=== PATIENT | male | born 1960 | race Caucasian/White ===

== ENCOUNTER 2017-09-02 11:24 | Outpatient (RCR) | payer MEDICARE, SELFPAY ==
[2017-09-02 12:02] VITALS: BP 122/74; PULSE 79; RESP 20; TEMP 36.1; BMI 74.9
--- NOTE | 2017-09-02 13:42 | PCM.WC.HP ---
(1) Chronic ulcer of left foot with necrosis of muscle Status: Chronic Code(s): L97.523 - Non-pressure chronic ulcer of other part of left foot with necrosis of muscle (2) Chronic kidney disease, stage III (moderate) Status: Chronic (3) Type 2 diabetes mellitus with diabetic polyneuropathy Status: Chronic Qualifiers: Code(s): E11.42 - Type 2 diabetes mellitus with diabetic polyneuropathy (4) Other specified peripheral vascular diseases Status: Chronic Code(s): I73.89 - Other specified peripheral vascular diseases (5) Localized edema Status: Chronic Code(s): R60.0 - Localized edema (6) MRSA (methicillin resistant staph aureus) culture positive Status: Resolved Code(s): Z22.322 - Carrier or suspected carrier of Methicillin resistant Staphylococcus aureus (7) Malnutrition Status: Chronic Code(s): E46 - Unspecified protein-calorie malnutrition (8) Delayed wound healing Status: Chronic Code(s): T14.8 - Other injury of unspecified body region History of Present Illness Date of Service: 09/07/17 Chief Complaint: Left foot wound History of Wound: This 56-year-old male with with a complicated medical history returns to clinic today with a new left foot large wound. He relates he sustained an injury and infection starting from August 10, 2017 in which she was admitted to an outside hospital for antibiotics, surgical debridement by a employee relations representative on staff, admission, and continued follow-up care. He was diagnosed previously with MRSA. He now has a very large unhealthy looking wound that continues to drain. He denies current fever, chill, nausea, loss of appetite. Past Medical History Past Medical History: Chronic Problems (Last Updated 08/25/17 @ 14:35 by Kaylin Ellis) Chronic ulcer of left foot with necrosis of muscle (Chronic) HTN (hypertension) (Chronic) Ulcer of right lower extremity with fat layer exposed (Chronic) Benign hypertension (Chronic) Chronic kidney disease, stage III (moderate) (Chronic) Type 2 diabetes mellitus (Chronic) Gastroesophageal reflux disease (Chronic) Obesity (Chronic) History of CHF (congestive heart failure) (Chronic) Obstructive sleep apnea syndrome (Chronic) Chronic ulcer of right leg with necrosis of muscle (Chronic) Type 2 diabetes mellitus with diabetic polyneuropathy (Chronic) Other specified peripheral vascular diseases (Chronic) Localized edema (Chronic) Malnutrition (Chronic) Delayed wound healing (Chronic) Surgical History: appendectomy Allergies/Adverse Reactions: Allergies No Known Allergies Allergy (Verified 06/22/13 08:32) Home Medications: Ambulatory Orders Medication Instructions Recorded Aspirin [Ecotrin] 81 mg PO DAILY 06/22/13 Atorvastatin Calcium [Lipitor] 20 mg PO QHS 06/22/13 Insulin NPH Human Isophane 70 unit SQ BID 12/31/16 [Novolin N] Insulin Regular, Human [Novolin R] 24 unit SC DINNER 12/31/16 Metoprolol Tartrate [Lopressor 50 mg PO BID 12/31/16 (Beta Robel)] metformin 500 mg tablet 500 mg PO DAILY #90 tab 07/02/17 insulin U-100 regular human 100 22 unit SC QAM ml 08/21/17 unit/mL injection solution insulin detemir (U-100) 100 20 unit SC QPM 08/21/17 unit/mL subcutaneous solution insulin lispro (U-100) 100 unit/mL 5 unit SC BID ml 08/21/17 subcutaneous solution insulin lispro (U-100) 100 unit/mL See Label Instructions SC .COMPLEX 08/21/17 subcutaneous solution blood sugar diagnostic strips See Dose Instructions .ROUTE 08/25/17 .MEDSUPPLY #20 ea esomeprazole magnesium 40 mg 40 mg PO QDAY 08/25/17 capsule,delayed release gabapentin 300 mg capsule 300 mg PO TID #180 cap 08/25/17 lancets 28 gauge See Dose Instructions .ROUTE 08/25/17 .MEDSUPPLY #50 ea oxycodone-acetaminophen 5 mg-325 1 tab PO Q8H PRN #90 tab 08/25/17 mg tablet Lives: With Family Smoking Status: Former smoker Tobacco Use: Non-smoker Review of Systems Constitutional: Reports: Weakness. Denies: Chills, Fever Cardiovascular: Denies: Chest Pain, Claudication Respiratory: Denies: Shortness of Breath Gastrointestinal: Denies: Nausea, Vomiting Musculoskeletal: Denies: Foot Pain, Joint Tenderness, Leg Pain Skin: Reports: Skin Changes, Wounds Neurological: Reports: Numbness - Physical Exam Vital Signs Temp Pulse Resp BP 96.9 F L 79 20 H 122/74 H 09/02/17 12:02 09/02/17 12:02 09/02/17 12:02 09/02/17 12:02 General: Alert, Oriented x3, Cooperative HEENT: Atraumatic Extremities: No cyanosis, Capillary Refill Less than 3 Seconds - All digits left foot, No Calf Tenderness - Negative Castillo and Brooks sign bilateral lower extremities, Diminished Peripheral Pulses, Edema - Mild left lower extremity Skin: Ulcer/ Wound - The large wound site encompasses the plantar medial arch extending onto the lateral dorsal foot with no purulence, streaking, erythema, johan necrosis, odor, or maceration. There is devitalized liquefied tissue including the subcutaneous and fascia layers. There is exposed muscle and plantar fascial band. There is additional probing deeper into the midfoot noted but not directly to bone, - - Skin is atrophic and hairless bilateral lower extremities Wound Measurements and Assessment WC - Nurse 1 - General Ulcer Measurement Start: 09/02/17 11:32 Freq: Status: Active Protocol: Activity Type Activity Date Activity User E-Sign Co-Sign Detail Recorded Client Recorded Date Recorded By Document 09/02/17 12:02 DL [id number] 09/02/17 12:30 DL 09/02/17 12:02 Wound Center Nurse 1 [Ulcer Assessment] #6 L Med Foot -Current Size (cm) - Length 1.8 -Current Size (cm) - Width 3 -Current Size (cm) - Depth 0.2 -Total Square Cm 5.4 -Photo Taken Yes -Exudate Amt Small (1-33%) -Exudate Type Serosanguineous -Wound Margin Distinct, Outline Attached -Granulation Amt None Present (0 %) -Necrosis Amt Large (67-100%) -Necrotic Tissue Type Adherent Slough -Structure Exposed N/A -Texture (Jacquelyn-wound Skin Appearance) Localized Edema -Moisture (Jacquelyn-wound Skin Appearance Dry/Scaly ) -Color (Jacquelyn-wound Skin Appearance) Erythema -Temperature (Jacquelyn-wound Skin No Abnormality Appearance) (Pt Warm) -Tenderness on Palpation (Jacquelyn-wound No Skin Appearance) -Ulcer Cleansing Wound Cleanser -Foul Odor after Cleansing No -Anesthetic Used 4% Lidocaine Solution #5 L Foot -Current Size (cm) - Length 4 -Current Size (cm) - Width 10.4 -Current Size (cm) - Depth 1 -Total Square Cm 41.6 -Photo Taken Yes -Exudate Amt Medium (34-66%) -Exudate Type Serosanguineous -Wound Margin Distinct, Outline Attached -Granulation Amt Small (1-33%) -Granulation Quality Hughson -Necrosis Amt Large (67-100%) -Necrotic Tissue Type Eschar -Structure Exposed N/A -Texture (Jacquelyn-wound Skin Appearance) Localized Edema -Moisture (Jacquelyn-wound Skin Appearance No Abnormality ) -Color (Jacquelyn-wound Skin Appearance) Erythema Rubor -Temperature (Jacquelyn-wound Skin No Abnormality Appearance) (Pt Warm) -Tenderness on Palpation (Jacquelyn-wound No Skin Appearance) -Ulcer Cleansing Wound Cleanser -Foul Odor after Cleansing No -Anesthetic Used 4% Lidocaine Solution [Edema Assessment] -Left Calf (cm) 34 -Left Ankle (cm) 20.3 WC - Nurse 2 - General Ulcer CM Notes Start: 09/02/17 11:32 Freq: Status: Active Protocol: Activity Type Activity Date Activity User E-Sign Co-Sign Detail Recorded Client Recorded Date Recorded By Document 09/02/17 13:07 [id number] 09/02/17 13:08 09/02/17 13:07 Wound Center Nurse 2 [Procedure/Treatment] #6 L [facility] Foot -Time 13:07 -Correct Patient Yes -Correct Side, Site, Position Yes -Correct Procedure Yes -Procedure Performed Yes -Type of Procedure Debridement -Clinical Debridement Muscle -Post Debridement Size (cm) - Length 1.8 -Post Debridement Size (cm) - Width 3.1 -Post Debridement Size (cm) - Depth 0.2 -Total Square Cm 5.58 -Wound/Ulcer Outcome Not Healed -Ulcer Cleansing Rinsed/ Irrigated with Saline -Foul Odor after Cleansing No -Bioengineered Tissue No -Bleeding Controlled with Pressure -Treatment Response Procedure Tolerated Well #5 L Foot -Time 13:07 -Correct Patient Yes -Correct Side, Site, Position Yes -Correct Procedure Yes -Procedure Performed Yes -Type of Procedure Debridement -Clinical Debridement Muscle -Post Debridement Size (cm) - Length 4.2 -Post Debridement Size (cm) - Width 10.5 -Post Debridement Size (cm) - Depth 1.0 -Total Square Cm 44.10 -Wound/Ulcer Outcome Not Healed -Ulcer Cleansing Rinsed/ Irrigated with Saline -Foul Odor after Cleansing No -Bioengineered Tissue No -Bleeding Controlled with Pressure -Treatment Response Procedure Tolerated Well [See Physician Procedure note for Specifics] Pain Scale: 0-10 Numeric [Pain] -Is Patient Pain Free? Yes Musculoskeletal: No Tenderness to Palpation of Joints or Extremities, Muscle Wasting, Tenderness - No pain with manipulation left lower extremity, - - Active range of motion digits ?5 left lower extremity and ankle in all directions, left Lymphatic: - - Nonpalpable popliteal lymph nodes left lower extremity Neurological: - - Lack of epicritic sensation light touch and 10 g complaints monofilament to left lower extremity consistent with neuropathy Debridement Note Post-Debridement Measurements/Treatment WC - Nurse 2 - General Ulcer CM Notes Start: 09/02/17 11:32 Freq: Status: Active Protocol: Activity Type Activity Date Activity User E-Sign Co-Sign Detail Recorded Client Recorded Date Recorded By Document 09/02/17 13:07 [id number] 09/02/17 13:08 09/02/17 13:07 Wound Center Nurse 2 #6 L Med Foot -Time 13:07 -Correct Patient Yes -Correct Side, Site, Position Yes -Correct Procedure Yes -Procedure Performed Yes -Type of Procedure Debridement -Clinical Debridement Muscle -Post Debridement Size (cm) - Length 1.8 -Post Debridement Size (cm) - Width 3.1 -Post Debridement Size (cm) - Depth 0.2 -Total Square Cm 5.58 -Wound/Ulcer Outcome Not Healed -Ulcer Cleansing Rinsed/ Irrigated with Saline -Foul Odor after Cleansing No -Bioengineered Tissue No -Bleeding Controlled with Pressure -Treatment Response Procedure Tolerated Well #5 L Foot -Time 13:07 -Correct Patient Yes -Correct Side, Site, Position Yes -Correct Procedure Yes -Procedure Performed Yes -Type of Procedure Debridement -Clinical Debridement Muscle -Post Debridement Size (cm) - Length 4.2 -Post Debridement Size (cm) - Width 10.5 -Post Debridement Size (cm) - Depth 1.0 -Total Square Cm 44.10 -Wound/Ulcer Outcome Not Healed -Ulcer Cleansing Rinsed/ Irrigated with Saline -Foul Odor after Cleansing No -Bioengineered Tissue No -Bleeding Controlled with Pressure -Treatment Response Procedure Tolerated Well Pain Scale: 0-10 Numeric Is Patient Pain Free? Yes Wound debrided: plantat, lateral, dorsal foot Laterality: Left Wound Grade/Stage: grade 3 Type of Debridement: Excisional debridement Anesthesia Used: 5% Lidocaine Gel Depth: in the subcutaneous layer Percentage of wound debrided: 100 Instrument Used: #15 blade, Forceps Tissue Removed: fibrous, devitalized subcutaneous, biofilm, slough, fascia and muscle tissu Severity: Necrosis of Muscle Amount of bleeding with debridement: Mild Bleeding Controlled with: Pressure Patient tolerated procedure well Assessment/Plan Assessment: Left grade 3 foot ulcer with infection that is currently being medically treated; he also had previous surgical treatment at an outside facility. Peripheral vascular disease lower extremity. Diabetes with polyneuropathy. Leg edema. Malnutrition suspected Plan: I reviewed and discussed his case. He is previously known to me for ulcers contralateral limb. He presents today with a new condition on the left lower extremity. To continue on antibiotics as recommended by his. He understands additional debridements in the clinical setting and cervical setting are likely to continue to remove nonviable and unhealthy tissue to prevent further infection and to provoke timely wound healing. This was performed today as noted in the clinical panel. A vascular referral to Dr. Hurtado was provided again today. It is noted that he had a Doppler completed in the past and is previously known to Dr. Hurtado. I recommend updating his laboratory values including CBC, CMP, ESR, C-reactive protein, hemoglobin A1c; an order requisition was provided. I also recommend an updated foot x-ray for the left lower extremity in order was provided. We will reviewed these results at his follow-up. Recommend he applies hydrogel with Adaptic with over the the wound to help with further moisture waiting for a local bacteria. Advanced wound care products will be considered in the future once his condition stabilizes. To remain completely nonweightbearing with assistive devices such as a walker, crutches, or wheelchair. Compliance with the treatment plan was also discussed. He understands he is at risk for continued infection, limb loss, or sepsis/life loss. He is advised to follow-up to clinic in 1 week or call sooner if he has any problems. He is doing well.
== END 2017-09-10 23:59 ==
LOC: WC 11:24
PROVIDERS: Family Provider Family Medicine; PCP Family Medicine; Visit Provider Podiatrist
DX: L97.523 Non-pressure chronic ulcer of other part of left foot with necrosis of muscle (principal); R60.0 Localized edema; L08.9 Local infection of the skin and subcutaneous tissue, unspecified; N18.3 Chronic kidney disease, stage 3 (moderate); E11.42 Type 2 diabetes mellitus with diabetic polyneuropathy; I73.89 Other specified peripheral vascular diseases; Z22.322 Carrier or suspected carrier of Methicillin resistant Staphylococcus aureus; E46 Unspecified protein-calorie malnutrition; G47.33 Obstructive sleep apnea (adult) (pediatric); E66.9 Obesity, unspecified; Z79.4 Long term (current) use of insulin; Z79.82 Long term (current) use of aspirin; Z87.891 Personal history of nicotine dependence; I12.9 Hypertensive chronic kidney disease with stage 1 through stage 4 chronic kidney disease, or unspecified chronic kidney disease
CPT/HCPCS: 11043; 11046; 99213; G0463

== ENCOUNTER → 2018-06-24 09:26 | Outpatient (CLI) | payer MEDICARE, SELFPAY ==
[2018-06-24 09:01] VITALS: BMI 32.9
[2018-06-24 12:46] LABS: AST(SGOT) 10 U/L (15-37); Alanine Aminotransfer ALT/SGPT 20 U/L (16-61); Albumin, Serum 3.7 g/dL (3.2-5.0); Alkaline Phosphatase 93 U/L (45-117); Anion Gap 13 (5-15); BUN 34 mg/dL (7-18); Calcium,Total 8.9 mg/dL (8.5-10.1); Chloride 103 mmol/L (98-107); Cholesterol 140 mg/dL (200); Creatinine, Serum 1.48 mg/dL (0.70-1.30); EST Glomerular Filtration Rate 52 mL/min (>60); Est Glom Filt Rate - Afr Amer 63 mL/min (>60); Globulin 3.7 g/dL (2.2-4.2); Glucose 181 mg/dL (74-106); High Density Lipoprotein 30 mg/dL; Potassium 3.6 mmol/L (3.5-5.1); Protein, Total 7.4 g/dL (6.4-8.2); Sodium Level 139 mmol/L (136-145); Triglycerides 219 mg/dL; Very Low Density Lipoprotein 44 mg/dL (5-40)
== END ==
PROVIDERS: Family Provider Family Medicine; PCP Family Medicine; Visit Provider Family Medicine
DX: Z89.512 Acquired absence of left leg below knee (principal); I25.2 Old myocardial infarction
CPT/HCPCS: 36415; 80053; 80061

== ENCOUNTER 2018-12-29 10:30 | Outpatient (RCR) | payer MEDICARE, SELFPAY ==
[2018-10-19 15:45] VITALS: BMI 32.9
[2018-12-22 14:47] VITALS: BP 147/71; PULSE 87; RESP 18; TEMP 36.7; BMI 32.9
--- NOTE | 2018-12-22 15:29 | PCM.WC.HP ---
(1) Chronic kidney disease, stage III (moderate) Status: Chronic Current Visit: Yes Code(s): N18.3 - Chronic kidney disease, stage 3 (moderate) (2) Other specified peripheral vascular diseases Status: Chronic Current Visit: Yes Code(s): I73.89 - Other specified peripheral vascular diseases (3) Type 2 diabetes mellitus with diabetic polyneuropathy Status: Chronic Current Visit: Yes Code(s): E11.42 - Type 2 diabetes mellitus with diabetic polyneuropathy (4) Ulcer of right foot with fat layer exposed Status: Chronic Current Visit: Yes Code(s): L97.512 - Non-pressure chronic ulcer of other part of right foot with fat layer exposed (5) Injury due to unintentional cut, puncture, perforation or hemorrhage during heart catheterization Status: Chronic Current Visit: Yes History of Present Illness Date of Service: 12/22/18 Chief Complaint: Left foot wound History of Wound: This 56-year-old male with with a complicated medical history returns to clinic today with a new right foot heel ulcer that occurred after he accidentally caught his foot with a screwdriver while he was working on a project at home. The onset is 11/13/2018. Since this time he has been applying a dry dressing and relates it has progressively darkened like a large scab. He denies active drainage. He has been keeping pressure off of it while resting. He does continue to wear shoe. 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 He denies current fever, chill, nausea, loss of appetite. He was referred from the [facility]. 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) History of myocardial infarction (Chronic) Chronic kidney disease, stage III (moderate) (Chronic) HTN (hypertension) (Chronic) Diabetes (Chronic) Ulcer of right lower extremity with fat layer exposed (Chronic) Benign hypertension (Chronic) Chronic kidney disease, stage III (moderate) (Chronic) Type 2 diabetes mellitus (Chronic) Gastroesophageal reflux disease (Chronic) Obesity (Chronic) History of CHF (congestive heart failure) (Chronic) Obstructive sleep apnea syndrome (Chronic) Chronic ulcer of right leg with necrosis of muscle (Chronic) Type 2 diabetes mellitus with diabetic polyneuropathy (Chronic) Other specified peripheral vascular diseases (Chronic) Localized edema (Chronic) Malnutrition (Chronic) Delayed wound healing (Chronic) Surgical History: appendectomy Allergies/Adverse Reactions: Allergies No Known Allergies Allergy (Verified 06/24/18 08:58) Home Medications: Ambulatory Orders Medication Instructions Recorded aspirin 81 mg tablet,delayed 81 mg PO DAILY #90 tab 06/08/18 release atorvastatin 40 mg tablet 40 mg PO QDAY #90 tab 06/08/18 insulin detemir (U-100) 100 60 unit SC QPM #6 vial 06/08/18 unit/mL subcutaneous solution metformin 500 mg tablet 1,000 mg PO BID #180 tab 06/08/18 esomeprazole magnesium 20 mg 20 mg PO DAILY #90 cap 07/12/18 capsule,delayed release insulin aspart U-100 100 unit/mL 10 unit SC TID #10 ml 09/27/18 subcutaneous solution lisinopril 20 mg tablet 20 mg PO DAILY #90 tab 10/19/18 oxycodone-acetaminophen 5 mg-325 1 tab PO Q8H PRN #60 tab 12/07/18 mg tablet blood sugar diagnostic strips See Rx Instructions .ROUTE 12/08/18 .COMPLEX #100 each clopidogrel 75 mg tablet See Rx Instructions .ROUTE 12/08/18 .COMPLEX #28 tablet gabapentin 300 mg capsule See Rx Instructions .ROUTE 12/08/18 .COMPLEX #84 capsule terazosin 2 mg capsule See Rx Instructions .ROUTE 12/08/18 .COMPLEX #56 capsule venlafaxine ER 75 mg See Rx Instructions .ROUTE 12/08/18 capsule,extended release 24 hr .COMPLEX #28 capsule furosemide 40 mg tablet 40 mg PO DAILY 12/09/18 Lives: - - home Smoking Status: Former smoker Review of Systems Constitutional: Denies: Chills, Fever, Weakness Cardiovascular: Denies: Orthopnea Respiratory: Denies: Shortness of Breath Gastrointestinal: Denies: Diarrhea, Nausea, Vomiting Musculoskeletal: Denies: Foot Pain, Joint Tenderness, Leg Pain Skin: Reports: Skin Changes, Wounds - Physical Exam Vital Signs Temp Pulse Resp BP 98.1 F 87 18 147/71 H 12/22/18 14:47 12/22/18 14:47 12/22/18 14:47 12/22/18 14:47 General: Alert, Oriented x3, Cooperative, No apparent distress HEENT: Atraumatic Extremities: No cyanosis, Capillary Refill Less than 3 Seconds, No Calf Tenderness - Negative Castillo and Brooks sign right, Diminished Peripheral Pulses, Edema - Mild right lower extremity, - - No bogginess or fluctuance on palpation and compartments remain soft to the right lower extremity Skin: Ulcer/ Wound - There is a fibers, granular, and eschar ulcer to the medial posterior right heel. There is no deep tissue exposed or deep probing. There is no erythema, streaking, odor, or acute signs of infection. Wound Measurements and Assessment WC - Nurse 1 - General Ulcer Measurement Start: 12/22/18 14:47 Freq: Status: Active Protocol: Activity Type Activity Date Activity User E-Sign Co-Sign Detail Recorded Client Recorded Date Recorded By Document 12/22/18 14:47 RB [email or web address] 12/22/18 14:59 RB 12/22/18 14:47 Wound Center Nurse 1 [Ulcer Assessment] 8. R foot anterior -Combined with other wound No -Current Size (cm) - Length 0.6 -Current Size (cm) - Width 0.6 -Current Size (cm) - Depth 0.1 -Total Square Cm 0.36 -Tunneling No -Undermining/Tunneling No -Circular Undermining No -Exudate Amt Small -Exudate Type Serosanguineous -Wound Margin Flat & Intact -Granulation Amt Large (67-100%) -Granulation Quality [place] -Slough/Fibrin Yes -Necrosis Amt Small (1-33%) -Necrotic Tissue Type Adherent Slough -Structure Exposed N/A -Texture (Jacquelyn-wound Skin Appearance) Assessed -Moisture (Jacquelyn-wound Skin Appearance Assessed ) -Color (Jacquelyn-wound Skin Appearance) Assessed -Temperature (Jacquelyn-wound Skin No Abnormality Appearance) (Pt Warm) -Tenderness on Palpation (Jacquelyn-wound No Skin Appearance) -Ulcer Cleansing Wound Cleanser -Foul Odor after Cleansing No -Anesthetic Used 5% Lidocaine Gel 7. R medial heel -Combined with other wound No -Current Size (cm) - Length 1.6 -Current Size (cm) - Width 2.3 -Current Size (cm) - Depth 0.1 -Total Square Cm 3.68 -Photo Taken Yes -Tunneling No -Undermining/Tunneling No -Circular Undermining No -Exudate Amt None Present -Wound Margin Flat & Intact -Granulation Amt None Present (0 %) -Slough/Fibrin Yes -Necrosis Amt Large (67-100%) -Necrotic Tissue Type Eschar -Structure Exposed N/A -Texture (Jacquelyn-wound Skin Appearance) Assessed,Callus -Moisture (Jacquelyn-wound Skin Appearance Assessed ) -Color (Jacquelyn-wound Skin Appearance) Assessed -Temperature (Jacquelyn-wound Skin No Abnormality Appearance) (Pt Warm) -Tenderness on Palpation (Jacquelyn-wound No Skin Appearance) -Ulcer Cleansing Rinsed/ Irrigated with Saline -Foul Odor after Cleansing No -Anesthetic Used 5% Lidocaine Gel [Edema Assessment] -Lower Limb Edema Present Yes -Right Calf (cm) 35.8 -Right Ankle (cm) 22 WC - Nurse 2 - General Ulcer CM Notes Start: 12/22/18 14:47 Freq: Status: Active Protocol: Activity Type Activity Date Activity User E-Sign Co-Sign Detail Recorded Client Recorded Date Recorded By Document 12/22/18 15:19 AN [id number] 12/22/18 15:26 AN 12/22/18 15:19 Wound Center Nurse 2 [Procedure/Treatment] 8. R foot anterior -Time 15:20 -Correct Patient Yes -Correct Side, Site, Position Yes -Correct Procedure Yes -Procedure Performed Yes -Type of Procedure Debridement -Clinical Debridement Subcutaneous -Post Debridement Size (cm) - Length 0.7 -Post Debridement Size (cm) - Width 0.7 -Post Debridement Size (cm) - Depth 0.1 -Total Square Cm 0.49 -Wound/Ulcer Outcome Not Healed -Bleeding Controlled with Pressure -Offloading Yes -Treatment Response Procedure Tolerated Well 7. R medial heel -Time 15:24 -Correct Patient Yes -Correct Side, Site, Position Yes -Correct Procedure Yes -Procedure Performed Yes -Type of Procedure Debridement -Clinical Debridement Subcutaneous -Post Debridement Size (cm) - Length 1.7 -Post Debridement Size (cm) - Width 2.4 -Post Debridement Size (cm) - Depth 0.1 -Total Square Cm 4.08 -Wound/Ulcer Outcome Not Healed -Ulcer Cleansing Rinsed/ Irrigated with Saline -Foul Odor after Cleansing No -Bioengineered Tissue No -Bleeding Controlled with Pressure -Offloading Yes -Treatment Response Procedure Tolerated Well [See Physician Procedure note for Specifics] Pain Scale: 0-10 Numeric [Pain] -Is Patient Pain Free? Yes Musculoskeletal: No Tenderness to Palpation of Joints or Extremities, Muscle Wasting Neurological: - - Lack of normal epicritic sensation light touch is consistent with neuropathy status Psych/Mental Status: Normal Affect, Appropriate Debridement Note Post-Debridement Measurements/Treatment WC - Nurse 2 - General Ulcer CM Notes Start: 12/22/18 14:47 Freq: Status: Active Protocol: Activity Type Activity Date Activity User E-Sign Co-Sign Detail Recorded Client Recorded Date Recorded By Document 12/22/18 15:19 AN [email or web address] 12/22/18 15:26 AN 12/22/18 15:19 Wound Center Nurse 2 8. R foot anterior -Time 15:20 -Correct Patient Yes -Correct Side, Site, Position Yes -Correct Procedure Yes -Procedure Performed Yes -Type of Procedure Debridement -Clinical Debridement Subcutaneous -Post Debridement Size (cm) - Length 0.7 -Post Debridement Size (cm) - Width 0.7 -Post Debridement Size (cm) - Depth 0.1 -Total Square Cm 0.49 -Wound/Ulcer Outcome Not Healed -Bleeding Controlled with Pressure -Offloading Yes -Treatment Response Procedure Tolerated Well 7. R medial heel -Time 15:24 -Correct Patient Yes -Correct Side, Site, Position Yes -Correct Procedure Yes -Procedure Performed Yes -Type of Procedure Debridement -Clinical Debridement Subcutaneous -Post Debridement Size (cm) - Length 1.7 -Post Debridement Size (cm) - Width 2.4 -Post Debridement Size (cm) - Depth 0.1 -Total Square Cm 4.08 -Wound/Ulcer Outcome Not Healed -Ulcer Cleansing Rinsed/ Irrigated with Saline -Foul Odor after Cleansing No -Bioengineered Tissue No -Bleeding Controlled with Pressure -Offloading Yes -Treatment Response Procedure Tolerated Well Pain Scale: 0-10 Numeric Is Patient Pain Free? Yes Wound debrided: medial heel Laterality: Right Wound Grade/Stage: grade 1 Type of Debridement: Excisional debridement Anesthesia Used: 5% Lidocaine Gel Depth: in the subcutaneous layer Percentage of wound debrided: 100 Instrument Used: #15 blade Tissue Removed: fibrous, devitalized subcutaneous, biofilm, slough Severity: Fat Layer Exposed Amount of bleeding with debridement: Mild Bleeding Controlled with: Pressure Patient tolerated procedure well - Additional Wound Wound debrided: dorsal foot Laterality: Right Wound Grade/Stage: grade 1 Type of Debridement: Excisional debridement Anesthesia Used: 5% Lidocaine Gel Depth: in the subcutaneous layer Percentage of wound debrided: 100 Instrument Used: #15 blade Tissue Removed: fibrous, devitalized subcutaneous, biofilm, slough Severity: Fat Layer Exposed Amount of bleeding with debridement: Mild Bleeding Controlled with: Pressure Patient tolerated procedure: Patient tolerated procedure well Assessment/Plan Active Problems (Last Reviewed 10/20/18 @ 08:06 by Reynaldo Lou DO) Type 2 diabetes mellitus with diabetic polyneuropathy (Chronic) Ulcer of right foot with fat layer exposed (Chronic) Injury due to unintentional cut, puncture, perforation or hemorrhage during heart catheterization (Chronic) Chronic kidney disease, stage III (moderate) (Chronic) Ulcer of right lower extremity with fat layer exposed (Chronic) Other specified peripheral vascular diseases (Chronic) Assessment: Right foot ulcer, dan grade 1, no infection. h/o initial puncture type injury to this site. Peripheral vascular disease lower extremity. Diabetes with polyneuropathy. Leg edema. Malnutrition suspected. left lower extremity amputation Plan: I reviewed and discussed his case. He is previously known to me for ulcers contralateral limb. He presents today with a new condition on the rightlower extremity and was referred from the foot and ankle center. He was reassured no local signs of infection noted today. Debridement was performed as noted in the clinical panel. I recommend changing the dressing daily with Santyl; this order was placed. This was performed today as noted in the clinical panel. A vascular referral to Dr. Hurtado was provided again today. He had previous work-up and intervention. I recommend returning due to this new status change. He had x-rays obtained at the foot and ankle center which did not demonstrate soft tissue emphysema, foreign body, or osseous destruction. His significant vessel calcification was noted which is consistent with his peripheral vascular disease. I recommend updating his laboratory values including CBC, CMP, hemoglobin A1c. Advanced wound care products will be considered in the future once his condition stabilizes and the eschar and fibrous tissue is resolved. To maintain a partial weightbearing status with assistive devices such as a walker, crutches, or wheelchair if needed and a surgical shoe with offloading felt. This was previously dispensed and fitted at the foot and ankle center. An offloading donut pillow prescription was also previously provided and he was advised on proper use. Compliance with the treatment plan was also discussed. He understands he is at risk for continued infection, limb loss, or sepsis/life loss. To take nutritional supplementation optimize healing. I initially recommended Prashant. He is advised to follow-up to clinic in 1 week or call sooner if he has any problems. He is doing well.
--- NOTE | 2018-12-29 08:52 | ART_ITS ---
Reason For Study: PVD Procedure A bilateral lower extremity continuous wave Doppler with analog waveform analysis,segmental pressures,and ankle brachial indexes without exercise. Left Segmental Pressures Left thigh = >254mmHg. The left thigh waveforms are triphasic. Right Segmental Pressures Right brachial= 114mmHg. Right thigh = >254mmHg. Right calf = 44mmHg. Right posterior tibial artery = 22mmHg. Right dorsalis pedis artery = >254mmHg. Right digit = 49 mmHg. The right dorsalis pedis waveforms are monophasic. The right posterior tibial artery waveforms are monophasic. Indices The right ankle brachial index by the dorsalis pedis is NC. The right ankle brachial index by the posterior tibial artery is 0.19. The right digital-brachial index is 0.43. Left thigh to brachial index is NC. Left below knee amputation. Interpretation Summary The patient has a left below-knee amputation. Monophasic Doppler waveforms are noted at ankle level on the right. Pulse-volume recording waveform amplitudes are diminished at digital level on the right.The resting right ankle-brachial index is severely diminished. The right digital-brachial index is [id number] diminished. There is evidence of severe arterial occlusive disease in the right lower extremity. There is also evidence of arterial calcification. Ordering Physician: Beulah Schultz Referring Physician: Tay Lou M.D. Performed By: Luz Maria Khanna RVT
[2018-12-29 10:43] VITALS: BP 135/77; PULSE 71; RESP 18; TEMP 36.4; BMI 32.9
--- NOTE | 2018-12-29 13:07 | PN.PCM_ITS ---
(1) Chronic kidney disease, stage III (moderate) Status: Chronic Current Visit: Yes Code(s): N18.3 - Chronic kidney disease, stage 3 (moderate) (2) Other specified peripheral vascular diseases Status: Chronic Current Visit: Yes Code(s): I73.89 - Other specified peripheral vascular diseases (3) Type 2 diabetes mellitus with diabetic polyneuropathy Status: Chronic Current Visit: Yes Code(s): E11.42 - Type 2 diabetes mellitus with diabetic polyneuropathy (4) Ulcer of right foot with fat layer exposed Status: Chronic Current Visit: Yes Code(s): L97.512 - Non-pressure chronic ulcer of other part of right foot with fat layer exposed (5) Puncture wound Status: Chronic Current Visit: Yes Code(s): T14.8XXA - Other injury of unspecified body region, initial encounter Type of Wound Date of Service: 12/29/18 Chief Complaint: Left foot wounds History of Wound: This 58-year-old male with with a complicated medical history returns to clinic today with a right foot heel ulcer that occurred after he accidentally caught his foot with a screwdriver while he was working on a project at home. He also has an ulcer to the top of his right foot. The onset is 11/13/2018. He denies active drainage. He has been keeping pressure off of it while resting. He does continue to wear shoe. 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 He denies current fever, chill, nausea, loss of appetite. He completed his noninvasive vascular studies today and asked to review the results. Progress of Wound: stable - Physical Exam Vital Signs Temp Pulse Resp BP 97.5 F L 71 18 135/77 H 12/29/18 10:43 12/29/18 10:43 12/29/18 10:43 12/29/18 10:43 General: Alert, Oriented x3, Cooperative, No apparent distress HEENT: Atraumatic Extremities: No cyanosis, No Calf Tenderness - negative jerry and florentino right, Diminished Peripheral Pulses - non palpable pulses right pt and dp, Tenderness - ulcer manipulation right. no fluctuance or bogginess noted, - - left lower extremity amputation noted Skin: Ulcer/ Wound - no purulence, erythema, streaking, odor noted. the heel ulcer is a full thickness eschar with no deep tissue probing noted. The dorsal foot ulcer is mainly fibrous with some granulation tissue. adjacent skin is hairless and atrophic right Wound Measurements and Assessment WC - Nurse 1 - General Ulcer Measurement Start: 12/22/18 14:47 Freq: Status: Active Protocol: Activity Type Activity Date Activity User E-Sign Co-Sign Detail Recorded Client Recorded Date Recorded By Document 12/29/18 10:43 JF [id number] 12/29/18 10:52 JENNIFER 12/29/18 10:43 Wound Center Nurse 1 [Ulcer Assessment] 8. R dorsal foot -Combined with other wound No -Current Size (cm) - Length 0.1 -Current Size (cm) - Width 0.1 -Current Size (cm) - Depth 0.1 -Total Square Cm 0.01 -Photo Taken No -Epithelialization Large 67-100% -Tunneling No -Undermining/Tunneling No -Circular Undermining No -Exudate Amt None Present -Wound Margin Indistinct, Non -Visible -Granulation Amt None Present (0 %) -Slough/Fibrin Yes -Necrosis Amt Large (67-100%) -Necrotic Tissue Type Adherent Slough -Structure Exposed N/A -Texture (Jacquelyn-wound Skin Appearance) Assessed -Moisture (Jacquelyn-wound Skin Appearance Assessed,Dry/ ) Scaly -Color (Jacquelyn-wound Skin Appearance) No Abnormality, Assessed -Temperature (Jacquelyn-wound Skin No Abnormality Appearance) (Pt Warm) -Tenderness on Palpation (Jacquelyn-wound No Skin Appearance) -Ulcer Cleansing Rinsed/ Irrigated with Saline -Foul Odor after Cleansing No -Anesthetic Used 5% Lidocaine Gel 7. R medial heel -Combined with other wound No -Current Size (cm) - Length 1.8 -Current Size (cm) - Width 2.2 -Current Size (cm) - Depth 0.8 -Total Square Cm 3.96 -Photo Taken No -Epithelialization None Present -Tunneling No -Undermining/Tunneling No -Circular Undermining No -Exudate Amt Small -Exudate Type Serosanguineous -Wound Margin Flat & Intact -Granulation Amt None Present (0 %) -Slough/Fibrin Yes -Necrosis Amt Large (67-100%) -Necrotic Tissue Type Adherent Slough -Structure Exposed N/A -Texture (Jacquelyn-wound Skin Appearance) Assessed -Moisture (Jacquelyn-wound Skin Appearance Assessed,Dry/ ) Scaly -Color (Jacquelyn-wound Skin Appearance) Assessed -Temperature (Jacquelyn-wound Skin No Abnormality Appearance) (Pt Warm) -Tenderness on Palpation (Jacquelyn-wound No Skin Appearance) -Ulcer Cleansing Rinsed/ Irrigated with Saline -Foul Odor after Cleansing No -Anesthetic Used 5% Lidocaine Gel [Edema Assessment] -Lower Limb Edema Present Yes -Right Calf (cm) 35.5 -Right Ankle (cm) 22.2 WC - Nurse 2 - General Ulcer CM Notes Start: 12/22/18 14:47 Freq: Status: Active Protocol: Activity Type Activity Date Activity User E-Sign Co-Sign Detail Recorded Client Recorded Date Recorded By Document 12/29/18 11:32 AN [id number] 12/29/18 11:35 AN 12/29/18 11:32 Wound Center Nurse 2 [Procedure/Treatment] 8. R dorsal foot -Time 11:34 -Correct Patient Yes -Correct Side, Site, Position Yes -Correct Procedure Yes -Procedure Performed Yes -Type of Procedure Debridement -Clinical Debridement Subcutaneous -Post Debridement Size (cm) - Length 0.2 -Post Debridement Size (cm) - Width 0.2 -Post Debridement Size (cm) - Depth 0.1 -Total Square Cm 0.04 -Wound/Ulcer Outcome Not Healed -Ulcer Cleansing Rinsed/ Irrigated with Saline -Foul Odor after Cleansing No -Bioengineered Tissue No -Bleeding Controlled with Pressure -Type of Offloading Surgical Shoe -Treatment Response Procedure Tolerated Well 7. R medial heel -Time 11:32 -Correct Patient Yes -Correct Side, Site, Position Yes -Correct Procedure Yes -Procedure Performed Yes -Type of Procedure Debridement -Clinical Debridement Subcutaneous -Post Debridement Size (cm) - Length 1.9 -Post Debridement Size (cm) - Width 2.3 -Post Debridement Size (cm) - Depth 0.8 -Total Square Cm 4.37 -Wound/Ulcer Outcome Not Healed -Bleeding Controlled with Pressure -Offloading Yes -Type of Offloading Surgical Shoe -Treatment Response Procedure Tolerated Well [See Physician Procedure note for Specifics] Pain Scale: 0-10 Numeric [Pain] -Is Patient Pain Free? Yes Musculoskeletal: No Tenderness to Palpation of Joints or Extremities, Muscle Wasting Neurological: - - lack of normal epicritic sensation is noted via light touch Psych/Mental Status: Normal Affect, Appropriate Debridement Note Post-Debridement Measurements/Treatment WC - Nurse 2 - General Ulcer CM Notes Start: 12/22/18 14:47 Freq: Status: Active Protocol: Activity Type Activity Date Activity User E-Sign Co-Sign Detail Recorded Client Recorded Date Recorded By Document 12/22/18 15:19 AN [id number] 12/22/18 15:26 AN Document 12/29/18 11:32 AN [id number] 12/29/18 11:35 AN 12/22/18 12/29/18 15:19 11:32 Wound Center Nurse 2 8. R dorsal foot -Time 15:20 11:34 -Correct Patient Yes Yes -Correct Side, Site, Position Yes Yes -Correct Procedure Yes Yes -Procedure Performed Yes Yes -Type of Procedure Debridement Debridement -Clinical Debridement Subcutaneous Subcutaneous -Post Debridement Size (cm) - Length 0.7 0.2 -Post Debridement Size (cm) - Width 0.7 0.2 -Post Debridement Size (cm) - Depth 0.1 0.1 -Total Square Cm 0.49 0.04 -Wound/Ulcer Outcome Not Healed Not Healed -Ulcer Cleansing Rinsed/ Irrigated with Saline -Foul Odor after Cleansing No -Bioengineered Tissue No -Bleeding Controlled with Pressure Pressure -Offloading Yes -Type of Offloading Surgical Shoe -Treatment Response Procedure Procedure Tolerated Well Tolerated Well 7. R medial heel -Time 15:24 11:32 -Correct Patient Yes Yes -Correct Side, Site, Position Yes Yes -Correct Procedure Yes Yes -Procedure Performed Yes Yes -Type of Procedure Debridement Debridement -Clinical Debridement Subcutaneous Subcutaneous -Post Debridement Size (cm) - Length 1.7 1.9 -Post Debridement Size (cm) - Width 2.4 2.3 -Post Debridement Size (cm) - Depth 0.1 0.8 -Total Square Cm 4.08 4.37 -Wound/Ulcer Outcome Not Healed Not Healed -Ulcer Cleansing Rinsed/ Irrigated with Saline -Foul Odor after Cleansing No -Bioengineered Tissue No -Bleeding Controlled with Pressure Pressure -Offloading Yes Yes -Type of Offloading Surgical Shoe -Treatment Response Procedure Procedure Tolerated Well Tolerated Well Pain Scale: 0-10 Numeric Is Patient Pain Free? Yes Yes Wound debrided: dorsal foot Laterality: Right Type of Debridement: Excisional debridement Anesthesia Used: 5% Lidocaine Gel Depth: in the subcutaneous layer Percentage of wound debrided: 100 Instrument Used: #15 blade Tissue Removed: fibrous, devitalized tissue, biofilm, slough Severity: Limited To Skin Breakdown Amount of bleeding with debridement: Mild Bleeding Controlled with: Pressure Patient tolerated procedure well - Additional Wound Wound debrided: heel Laterality: Right Type of Debridement: Excisional debridement Anesthesia Used: 5% Lidocaine Gel Depth: Down to and including healthy tissue Percentage of wound debrided: 100 Instrument Used: #15 blade Tissue Removed: fibrous, devitalized tissue, biofilm, slough, non adhered eschar Severity: Limited To Skin Breakdown Amount of bleeding with debridement: Mild Bleeding Controlled with: Pressure Patient tolerated procedure: Patient tolerated procedure well Assessment/Plan Active Problems (Last Reviewed 10/20/18 @ 08:06 by Reynaldo Lou DO) Type 2 diabetes mellitus with diabetic polyneuropathy (Chronic) Ulcer of right foot with fat layer exposed (Chronic) Puncture wound (Chronic) Chronic kidney disease, stage III (moderate) (Chronic) Ulcer of right lower extremity with fat layer exposed (Chronic) Other specified peripheral vascular diseases (Chronic) Assessment: Right foot ulcer, dan grade 1, no infection. h/o initial puncture type injury to this site. right dorsal foot ulcer grade 1, no infection. Peripheral vascular disease lower extremity; advanced. Diabetes with polyneuropathy. Leg edema. Malnutrition suspected. left lower extremity amputation Plan: I reviewed and discussed his case. He is previously known to me for ulcers contralateral limb. He presents today for follow up of the right lower extremity ulcers. Debridement was performed as noted in the clinical panel. I recommend changing the dressing daily with Santyl; this order was placed previously. A vascular referral to Dr. Hurtado was provided again today and he is scheduled within a week. He had previous work-up and intervention. I recommend returning due to this new status change. His non invasive vascular studies were reviewed with abnormalities including monophasic waveforms and significant calcification. He has rest pain, claudication, and non healing ulcers. He had x-rays obtained at the foot [facility] center which did not demonstrate soft tissue emphysema, foreign body, or osseous destruction. His significant vessel calcification was noted which is consistent with his peripheral vascular disease. I recommend updating his laboratory values including CBC, CMP, hemoglobin A1c. Orders were provided and he states he will not be getting these done today as advised. Advanced wound care products will b e considered in the future once his condition stabilizes and the eschar and fibrous tissue is resolved. To maintain a partial weightbearing status with assistive devices such as a walker, crutches, or wheelchair if needed and a surgical shoe with offloading felt. This was previously dispensed and fitted at the foot and ankle center. An offloading donut pillow prescription was also previously provided and he was advised on proper use. Compliance with the treatment plan was also discussed. He understands he is at risk for continued infection, limb loss, or sepsis/life loss. To take nutritional supplementation optimize healing. I initially recommended Prashant. He is advised to follow-up to clinic in 1 week or call sooner if he has any problems.
== END 2019-01-10 23:59 ==
LOC: WC 10:30
PROVIDERS: Family Provider Family Medicine; PCP Family Medicine; Referring Provider Podiatrist; Visit Provider Podiatrist
DX: E11.621 Type 2 diabetes mellitus with foot ulcer (principal); E11.22 Type 2 diabetes mellitus with diabetic chronic kidney disease; N18.3 Chronic kidney disease, stage 3 (moderate); E11.42 Type 2 diabetes mellitus with diabetic polyneuropathy; E11.51 Type 2 diabetes mellitus with diabetic peripheral angiopathy without gangrene; L97.412 Non-pressure chronic ulcer of right heel and midfoot with fat layer exposed; K21.9 Gastro-esophageal reflux disease without esophagitis; G47.33 Obstructive sleep apnea (adult) (pediatric); I25.2 Old myocardial infarction; I13.0 Hypertensive heart and chronic kidney disease with heart failure and stage 1 through stage 4 chronic kidney disease, or unspecified chronic kidney disease; I50.9 Heart failure, unspecified; E66.9 Obesity, unspecified; Z79.899 Other long term (current) drug therapy; Z79.82 Long term (current) use of aspirin; Z79.4 Long term (current) use of insulin; Z79.02 Long term (current) use of antithrombotics/antiplatelets; Z87.891 Personal history of nicotine dependence; L97.512 Non-pressure chronic ulcer of other part of right foot with fat layer exposed
CPT/HCPCS: 11042; 93923; 97597; 99212; G0463

== ENCOUNTER 2018-12-31 14:16 | Emergency (ER) | payer MEDICARE, SELFPAY ==
[2018-12-31 14:17] VITALS: BP 174/94; PULSE 77; RESP 16; TEMP 36.8; O2SAT 99; BMI 34.7
[2018-12-31 14:20] VITALS: O2SAT 100
--- NOTE | 2018-12-31 14:36 | EKG12_ITS ---
Test Reason : FALL Blood Pressure : / mmHG Vent. Rate : 079 BPM Atrial Rate : 079 BPM P-R Int : 166 ms QRS Dur : 110 ms QT Int : 402 ms P-R-T Axes : 020 -11 099 degrees QTc Int : 460 ms Sinus rhythm with Premature atrial complexes Inferior infarct (cited on or before 19-JUL-2013), age undetermined ST & T wave abnormality, consider lateral ischemia Abnormal ECG Confirmed by ZOFIA PICKENS, JACKIE ([id number]), solar project coordination specialist ANNA ZAPIEN ([id number]) on 01/03/2019 9:18:18 AM Referred By: SCARLETT Confirmed By:JACKIE ARMIJO MD
--- NOTE | 2018-12-31 14:37 | CT_ITS ---
STUDY: CT BRAIN WITHOUT CONTRAST REASON FOR EXAM: Male, 58 years old. And injury. The patient is on anticoagulants. RADIATION DOSAGE (If Supplied By Facility): CTDIvol = ( 60.81 ) mGy, DLP = ( 1112.69 ) mGycm TECHNIQUE: Transaxial CT imaging of the brain was performed without administration of intravenous contrast material. Individualized dose optimization techniques were used for this CT. COMPARISON: No relevant priors. FINDINGS: Normal soft tissue structures. Normal calvarium. There is mild cerebral atrophy with widening of the extra-axial spaces and ventricular dilatation. There are areas of decreased attenuation within the white matter tracts of the supratentorial brain, consistent with microvascular disease changes. Normal basal ganglia and thalami. Normal brainstem. Normal cerebellum. There is no intracranial hemorrhage. There are no findings of an acute ischemic infarction. Atherosclerotic calcification of the vertebral arteries and cavernous portions of the internal carotid arteries bilaterally. Normal visualized paranasal sinuses. CT/Brain/Head without Contrast IMPRESSION: Chronic involutional changes of the brain. Electronically Signed: Tristen Oconnor, at 15:27 EDT , Service support ,
--- NOTE | 2018-12-31 14:50 | ED.VIS.GEN ---
History of Present Illness Chief Complaint: Fall Informant: Patient Onset: Days Narrative: Patient presents to the ED following mechanical fall this morning. He states that he fell and hit his head. LOC is unknown. He is concerned because he does take Plavix. He states for the last several days he has been experiencing vertigo. He does have a history of vertigo. Patient he has not taken anything today for vertigo symptoms. He denies any nausea or vomiting. He does have a headache due to his head trauma. Past Medical History - Allergies and Home Meds Allergies/Adverse Reactions: Allergies No Known Allergies Allergy (Verified 12/31/18 14:20) Primary Care Physician: Reynaldo Lou DO [Primary Care Provider] - Surgical History: appendectomy Smoking Status: Former smoker Review of Systems General: Denies: Chills, Fever, Sweats Eyes: Denies: Visual changes - bilaterally, Diplopia ENT: Denies: Rhinorrhea, Sore throat Cardiovascular: Denies: Chest pain, Palpitations Respiratory: Denies: Dyspnea, Cough, Dyspnea on exertion Gastrointestinal: Denies: Abdominal pain, Nausea, Vomiting, Diarrhea, Melena, Hematochezia Genitourinary: Denies: Dysuria, Hematuria, Frequency Musculoskeletal: Reports: -. Denies: Back pain, Extremity Pain Skin: Denies: Rash, Wounds Neurological: Reports: Headache, - - Vertigo. Denies: Weakness, Numbness Physical Exam Vital Signs/Narrative: Vital Signs Temp Pulse Resp BP Pulse Ox 12/31/18 14:20 100 12/31/18 14:17 98.3 F 77 16 174/94 H 99 General: Well nourished, Well developed, No Acute Distress Head: Normocephalic, Atraumatic Eyes: Perrl, EOMI ENT: Moist mucous membranes, No rhinorrhea Neck: Supple, Nontender Cardiovascular: Regular rate, Regular rhythm, No murmurs Respiratory: No distress, CTA bilaterally, Chest nontender Abdomen: Soft, Nontender, Nondistended, Normal bowel sounds Back: Nontender, Normal Inspection Extremities: Nontender, No edema Skin: Normal color, No rash Neurological: Alert, Oriented x3, Cranial nerves II-XII grossly intact, Normal Strength, Normal Sensation Psychological: Normal affect, Normal Mood Diagnostic/Tx/Re-eval - EKG Initial EKG Interpretation: Sinus Rhythm - with PACs., No Acute Injury Pattern - Medical Decision Making Patient presents to the ED with multiple falls with increased vertiginous symptoms. He appears well and nontoxic. No obvious signs of trauma. Work-up is fairly unremarkable including CT brain, CBC, BMP, troponin, and urinalysis. EKG is fairly unremarkable. He was given Tylenol, meclizine, and Valium for symptomatic relief. He does report improvement of symptoms. He was able to transfer from wheelchair to bed in the emergency department. At this time, I think it is safe for the patient. He was advised to follow-up with PCP if symptoms persist or worsen. Educated on signs/symptoms to return to the ED. Is provided discharge instructions and agreeable to plan. Impression: Closed head injury. Multiple falls. Vertigo. Disposition: Home stable ED Disposition - Plan for ED Patient: Disposition: Home or Assisted Living Diagnosis: Vertigo, Closed head injury, Fall Instructions: VERTIGO, Unspecified, HEAD INJURY, No Wake-Up (Adult) Prescriptions: Meclizine HCl 25 mg PO TID #20 tab.chew Prescription Printed Referrals: Reynaldo Lou DO [Primary Care Provider] -
[2018-12-31 15:12] LABS: Absolute Lymphocyte Count 2.63 X10^3/uL (0.83-4.51); Absolute Neutrophil Count 8.6 X10^3/uL (2.0-7.7); Basophil# 0.06 X10^3/uL; Basophil% 0.5 % (0-1); Eosinophil# 0.11 X10^3/uL; Eosinophils% 0.9 % (0-5); Hematocrit 37.1 % (40-54); Hemoglobin 12.5 g/dL (13.0-16.5); Lymphocyte # 2.63 X10^3/ul (4.0); Lymphocyte % 21.4 % (19-41); Mean Corp Hgb Conc 33.7 g/dL (32-36); Mean Corpuscular Hgb 28.2 pg (27.0-32.0); Mean Corpuscular Volume 83.6 fL (80-94); Mean Platelet Vol. 10.6 fl (6.2-12.0); Monocyte# 0.85 X10^3/uL; Monocyte% 6.9 % (0-10); NRBC Flagged by Analyzer 0 % (0-5); Neutrophil # 8.58 X10^3/uL (2.7-7.7); Neutrophil % 69.8 % (47-70); Platelet Count 293 K/mm3 (150-450); RBC Distribution Width CV 11.9 % (11.6-14.6); RBC Distribution Width SD 36.1 fl (35.1-43.9); Red Blood Count 4.44 M/mm3 (4.6-6.2); White Blood Count 12.3 K/mm3 (4.4-11.0)
[2018-12-31 15:28] LABS: Anion Gap 10 (5-15); BUN 15 mg/dL (7-18); BUN/Creat Ratio 11.9 RATIO (10-20); Calcium,Total 8.8 mg/dL (8.5-10.1); Chloride 103 mmol/L (98-107); Creatinine, Serum 1.26 mg/dL (0.70-1.30); EST Glomerular Filtration Rate 62 mL/min (>60); Est Glom Filt Rate - Afr Amer 75 mL/min (>60); Estimated Creatinine Clearance 63.13 ml/min; Glucose 275 mg/dL (74-106); Potassium 3.5 mmol/L (3.5-5.1); Sodium Level 135 mmol/L (136-145)
--- NOTE | 2018-12-31 15:35 | CM.ED ---
SOCIAL WORK ASSESSMENT INFORMANT: NURSEJUANITO REASON FOR REFERRAL: RESOURCES LIVING SITUATION: HOME ALONE IN A 1 STORY HOME WITH RAMP TO ENTER DME: HOSPITAL BED, WHEELCHAIR, SHOWER CHAIR, WALKER, CANE, MEDICAL ALERT SUPPORTS/RESOURCES: PATIENT REPORTS HAS [facility] [place] [facility]. REPORTS AIDE SERVICES M/W/F FOR 2 HOURS. PATIENT DENIES NEED FOR INCREASE IN HOURS. PATIENT MEDICAL CHEMIST IS GISELE SOLOMON. MENTAL HEALTH HISTORY: PATIENT REPORTS HX OF ANXIETY AND DEPRESSION AND STATES IS TREATED WITH MEDICATION PRESCRIBED BY PCP. PCP: DR. ALEXANDREA SEAMAN. ASSESSMENT: MET WITH PATIENT IN ROOM. INTRODUCED ROLE AND REASON FOR REFERRAL. PATIENT REPORTS HAS [place] [facility] WAIVER AND AIDE SERVICES M/W/F. DISCUSSED ADDING SKILLED HOME HEALTH SERVICES, SN/PT. PATIENT DENIES NEED. QUESTIONED PATIENT ABOUT RECENT FALLS AT HOME. PATIENT STATES WAS DIAGNOSED WITH VERTIGO A FEW YEARS AGO AND LATELY ITS BEEN ACTING UP. PATIENT STATES PLAN FOR DISCHARGE IS HOME BEFORE. ENCOURAGED PATIENT TO WEAR MEDICAL ALERT [place]. PATIENT VERBALIZED UNDERSTANDING. INFORMED PATIENT IF CHANGES MIND ABOUT ADDITIONAL HOURS OR SERVICES TO LET THIS WORKER, PRIMARY CARE OR MEDICAL CHEMIST KNOW. NO FURTHER NEEDS AT THIS TIME. NURSE UPDATED ON THE ABOVE. PLAN: HOME BEFORE. REFUSING ADDITIONAL SERVICES. 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
[2018-12-31] MEDS: Acetaminophen 500 MG Tablet 1000 MG PO (16:01)
[2018-12-31 16:02] VITALS: BP 159/91; PULSE 85; RESP 17; TEMP 36.9; O2SAT 100
--- NOTE | 2018-12-31 16:10 | ED.RN ---
ATTEMPT MADE TO COLLECT URINE. PT WAS UNABLE TO PROVIDE A SAMPLE. PER PT HE HAS DECREASED URINATION DURING THE DAY DUE TO KIDNEY DISEASE. CARE PROVIDER INFORMED. Jluis PECK RN [phone]
[2018-12-31 16:29] LABS: Bacteria 0 SEEN /hpf (None Seen); Mucous, Urine 0 SEEN /hpf (<or=2+); Red Blood Cells-Urine 0 SEEN /hpf (0-5); Squamous Epithelial Cells - UA 0 SEEN /hpf (0-5); White Blood Cells 0 SEEN /hpf (0-5)
[2018-12-31 16:35] LABS: Color, Urine Yellow (Yellow); Glucose, Dipstick 1000 mg/dl (Normal); Ketone-Dipstick 5 mg/dl (Negative); Leukocyte Esterase-Dipstick Negative /ul (Negative); Nitrite-Dipstick Negative (Negative); Occult Blood-Urine Negative /ul (Negative); Protein-Dipstick 30 mg/dl (Negative); Urine Bilirubin Dipstick Negative (Negative); Urine Clarity Clear (Clear); Urine Urobilinogen Normal (Normal)
[2018-12-31] MEDS: diazePAM 2 MG Tablet PO (16:41)
[2018-12-31] MEDS: Meclizine HCl 25 MG Tablet PO (16:41)
[2018-12-31 16:42] VITALS: BP 156/103; PULSE 90; RESP 20; O2SAT 99
[2018-12-31 17:37] VITALS: BP 115/57; PULSE 77; RESP 15; O2SAT 99
--- NOTE | 2018-12-31 17:38 | ED.RN ---
per dr order pt was evaluated transitioning into at from wheel chair. pt was able to mechanically do so, but dropped himself into the wheel chair and stubbled into wheel chair from bed. was given report on patients transfer and findings. d/c paperwork provided. no further orders were placed. jesus hadley rn [phone]
== END 2018-12-31 18:07 | disposition home or self-care (01) ==
PROVIDERS: Emergency Provider Physician Assistant; Family Provider Family Medicine; PCP Family Medicine
DX: R42 Dizziness and giddiness (principal); S09.90XA Unspecified injury of head, initial encounter; W01.10XA Fall on same level from slipping, tripping and stumbling with subsequent striking against unspecified object, initial encounter; Y93.9 Activity, unspecified; Y92.9 Unspecified place or not applicable; Y99.9 Unspecified external cause status; R29.6 Repeated falls; Z79.02 Long term (current) use of antithrombotics/antiplatelets; Z79.84 Long term (current) use of oral hypoglycemic drugs; Z79.82 Long term (current) use of aspirin; Z79.4 Long term (current) use of insulin; Z79.899 Other long term (current) drug therapy; Z87.891 Personal history of nicotine dependence
CPT/HCPCS: 70450; 80048; 81001; 84484; 85025; 93005; 99285; A4216

== ENCOUNTER 2019-01-07 11:21 | Inpatient (IN) | payer MEDICARE, SELFPAY ==
[2019-01-07] VITALS (7 sets, daily range): BP systolic 144–177; BP diastolic 43–82; PULSE 73–88; RESP 16–18; TEMP 36.6–37.1; O2SAT 97–100; BMI 34.7; BMI 32.0
--- NOTE | 2019-01-07 12:12 | ED.VISSUMM ---
- ER Visit Summary Date of Service: 01/07/19 Chief Complaint: Right heel diabetic foot ulcer with redness History of Present Illness: The patient is a 58 M no evidence of head diabetic chronic right foot heel diabetic wound now with cellulitis, hypertension, peripheral arterial disease, stage III renal insufficiency and prior CABG. He is also had a left below the knee amputation due to peripheral arterial disease. Physical Examination: Middle-aged male no acute distress. Vital signs stable afebrile. HEENT exam unremarkable. Lungs clear to auscultation. Heart regular rhythm no murmur. Abdomen soft nontender. Extremities moves all 4. Neurovascular intact. He is a left below the knee amputation. His right lower extremity he has a large necrotic wound on the medial portion of his right heel with surrounding cellulitis. There is tenderness palpation. He is able to dorsi and plantarflex of the right foot. It is tender. And he is able to feel touch sensation. There is no streaking up his leg. There is no edema. There is no gross bony deformity. Neurologically is awake and alert with no focal motor deficits. Test Results: This is a white count 12.8. Hemoglobin 11 hematocrit 34. 0 bands. Electrolytes unremarkable potassium 3.3. Gap of 12. Creatinine 1.4. Glucose is elevated 449. Emergency Department Course and Treatment: Started on IV Zosyn for diabetic foot infection. I have already spoken to his scoop driver . Patient will be admitted here to the hospitalist with podiatry and probably vascular surgery consultation. Treatment Plan: Patient's scoop driver Dr. Schultz and evaluate the patient and did some debridement of the heel and wound cultures. Patient was also treated with subcu insulin for his blood sugar 449. I have spoken to the hospitalist about admission. And the scoop driver is speaking to a surgeon capable of doing vascular procedures. Disposition: Patient Impression: Acute right foot diabetic wound with surrounding cellulitis Acute hyperglycemia History of peripheral vascular disease History of insulin-dependent diabetes History of coronary artery disease with prior CABG This note was generated with [employer] dictation software. It may contain incorrect words, spelling, and punctuation that were not noted in review of the chart prior to signing ED Disposition - Plan for ED Patient: Referrals: Reynaldo Lou DO [Primary Care Provider] -
[2019-01-07] MEDS: morphine 8 MG/ML Syringe IV (12:14)
[2019-01-07] MEDS: Ondansetron 4 MG/2 ML Vial IV (12:14)
[2019-01-07 12:24] LABS: Absolute Lymphocyte Count 1.99 X10^3/uL (0.83-4.51); Absolute Neutrophil Count 9.8 X10^3/uL (2.0-7.7); Basophil# 0.06 X10^3/uL; Basophil% 0.5 % (0-1); Eosinophil# 0.05 X10^3/uL; Eosinophils% 0.4 % (0-5); Hematocrit 34.5 % (40-54); Hemoglobin 11.5 g/dL (13.0-16.5); Lymphocyte # 1.99 X10^3/ul (4.0); Lymphocyte % 15.5 % (19-41); Mean Corp Hgb Conc 33.3 g/dL (32-36); Mean Corpuscular Hgb 27.8 pg (27.0-32.0); Mean Corpuscular Volume 83.5 fL (80-94); Mean Platelet Vol. 10.3 fl (6.2-12.0); Monocyte# 0.82 X10^3/uL; Monocyte% 6.4 % (0-10); NRBC Flagged by Analyzer 0 % (0-5); Neutrophil # 9.82 X10^3/uL (2.7-7.7); Neutrophil % 76.4 % (47-70); Platelet Count 366 K/mm3 (150-450); RBC Distribution Width CV 11.8 % (11.6-14.6); RBC Distribution Width SD 35.9 fl (35.1-43.9); Red Blood Count 4.13 M/mm3 (4.6-6.2); White Blood Count 12.8 K/mm3 (4.4-11.0)
[2019-01-07 12:51] LABS: Anion Gap 12 (5-15); BUN 19 mg/dL (7-18); BUN/Creat Ratio 13.1 RATIO (10-20); Calcium,Total 9.2 mg/dL (8.5-10.1); Chloride 99 mmol/L (98-107); Creatinine, Serum 1.45 mg/dL (0.70-1.30); EST Glomerular Filtration Rate 53 mL/min (>60); Est Glom Filt Rate - Afr Amer 64 mL/min (>60); Estimated Creatinine Clearance 54.85 ml/min; Glucose 449 mg/dL (74-106); Potassium 3.3 mmol/L (3.5-5.1); Sodium Level 134 mmol/L (136-145)
--- NOTE | 2019-01-07 12:51 | RAD_ITS ---
STUDY: X-RAY - RIGHT FOOT CLINICAL: Male, 58 years old. Diabetic foot. Heel infection. TECHNIQUE: 3 view(s) of the foot. COMPARISON: None. FINDINGS: No acute fracture. No dislocation. Osteopenia. High arch foot. Advanced tarsometatarsal joint arthrosis. Mild joint space narrowing at the distal interphalangeal joints. Heel ulceration. No radiographic evidence of acute osteomyelitis. Vascular calcifications. Mild soft tissue swelling. 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
--- NOTE | 2019-01-07 13:06 | PCM.HP.STD ---
Problem List (1) Type 2 diabetes mellitus with diabetic polyneuropathy Status: Chronic (2) Ulcer of right foot with fat layer exposed Status: Acute (3) Lymphangitis, acute, lower leg Status: Resolved (4) Amputation of left lower extremity below knee Status: Chronic (5) History of myocardial infarction Status: Chronic (6) Chronic kidney disease, stage III (moderate) Status: Chronic (7) HTN (hypertension) Status: Chronic Qualifiers: Hypertension type: essential hypertension Qualified Code(s): I10 - Essential (primary) hypertension (8) Heart disease Status: Chronic (9) Diabetes Status: Chronic Qualifiers: Diabetes mellitus type: type 2 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 Diabetes mellitus complication status: with kidney complications Diabetes mellitus complication detail: with chronic kidney disease Chronic kidney disease stage: stage 3 (moderate) Qualified Code(s): E11.22 - Type 2 diabetes mellitus with diabetic chronic kidney disease; N18.3 - Chronic kidney disease, stage 3 (moderate); 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 (10) Benign hypertension Status: Chronic (11) Chronic kidney disease, stage III (moderate) Status: Chronic (12) Type 2 diabetes mellitus Status: Chronic Qualifiers: 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 Diabetes mellitus complication status: with circulatory complication Diabetes mellitus complication detail: with other circulatory complications Qualified Code(s): E11.59 - Type 2 diabetes mellitus with other circulatory complications; Z79.4 - detention (current) use of insulin (13) Gastroesophageal reflux disease Status: Chronic Qualifiers: Esophagitis presence: without esophagitis Qualified Code(s): K21.9 - Gastro-esophageal reflux disease without esophagitis (14) Obesity Status: Chronic (15) History of CHF (congestive heart failure) Status: Chronic (16) Obstructive sleep apnea syndrome Status: Chronic (17) Chronic ulcer of right leg with necrosis of muscle Status: Chronic (18) Type 2 diabetes mellitus with diabetic polyneuropathy Status: Chronic Qualifiers: (19) Other specified peripheral vascular diseases Status: Chronic (20) Localized edema Status: Chronic (21) Venous insufficiency Status: Suspected (22) Delayed wound healing Status: Chronic (23) Cellulitis of right leg Status: Acute History of Present Illness Date of Admission: 01/07/19 Chief Complaint: Right heel ulcer The patient is a 58 year old M past medical history single for diabetes mellitus type 2, CAD with previous CABG who presented to the emergency department with right heel ulcer. Patient symptoms started 3 weeks prior to his admission has since been managed at the wound care center for right heel ulcer. Was seen in the emergency department 4 days prior to this admission discharge and he however presented with worsening symptoms. An assessment of diabetic foot infection was made. Podiatry consulted in the ED underwent local debridement started on broad-spectrum antibiotic therapy and admitted to the regular nursing floor for further management. Past Medical History Past Medical History (Chronic Problems): Chronic Problems (Last Reviewed 01/07/19 @ 13:30 by Ivan Colorado MD) Type 2 diabetes mellitus with diabetic polyneuropathy (Chronic) Amputation of left lower extremity below knee (Chronic) History of myocardial infarction (Chronic) Chronic kidney disease, stage III (moderate) (Chronic) HTN (hypertension) (Chronic) Heart disease (Chronic) Diabetes (Chronic) Benign hypertension (Chronic) Chronic kidney disease, stage III (moderate) (Chronic) Type 2 diabetes mellitus (Chronic) Gastroesophageal reflux disease (Chronic) Obesity (Chronic) History of CHF (congestive heart failure) (Chronic) Obstructive sleep apnea syndrome (Chronic) Chronic ulcer of right leg with necrosis of muscle (Chronic) Type 2 diabetes mellitus with diabetic polyneuropathy (Chronic) Other specified peripheral vascular diseases (Chronic) Localized edema (Chronic) Delayed wound healing (Chronic) Medical History: Medical History (Last Reviewed 01/07/19 @ 13:30 by Ivan Colorado MD) History of myocardial infarction (Chronic) I25.2 Stroke (Resolved) I63.9 HTN (hypertension) (Chronic) I10 Heart disease (Chronic) I51.9 Diabetes (Chronic) E11.9 Allergies No Known Allergies Allergy (Verified 01/07/19 11:22) Home Medications: Ambulatory Orders Medication Instructions Recorded insulin detemir (U-100) 100 60 unit SC QPM #6 vial 06/08/18 unit/mL subcutaneous solution lisinopril 20 mg tablet 20 mg PO DAILY #90 tab 10/19/18 furosemide 40 mg tablet 40 mg PO DAILY 12/09/18 Clopidogrel Bisulfate [Clopidogrel] 75 mg PO DAILY 12/31/18 Gabapentin [Neurontin] 300 mg PO TID 12/31/18 Terazosin HCl 2 mg PO BID 12/31/18 Venlafaxine HCl [Venlafaxine HCl 75 mg PO DAILY 12/31/18 ER] Aspirin E.C. [Ecotrin] 81 mg PO DAILY@0800 01/07/19 Atorvastatin Calcium 40 mg PO QHS 01/07/19 Esomeprazole Magnesium 20 mg PO DAILY 01/07/19 Metformin HCl 1,000 mg PO BID 01/07/19 carvedilol 12.5 mg tablet 12.5 mg PO BID #180 tab 01/07/19 insulin aspart U-100 100 unit/mL 10 unit SUBCUT TID #10 ml 01/07/19 subcutaneous solution ranitidine 150 mg tablet 150 mg PO DAILY #90 tab 01/07/19 Surgical History: Surgical History (Last Reviewed 01/07/19 @ 13:30 by Ivan Colorado MD) History of heart bypass surgery Z95.1 Status post left foot surgery Z98.890 2018, ulcer Surgical History: appendectomy Smoking Status: Former smoker - *Family History Maternal Family History: Family History (Last Reviewed 01/07/19 @ 13:30 by Ivan Colorado MD) Mother Heart disease Diabetes Father Heart disease Cancer Review of Systems Constitutional: Denies: Anorexia, Chills, Fever, Night Sweats, Weight Change HEENT: Denies: Head Aches, Sinus Congestion, Sinus Drainage Cardiovascular: Denies: Chest Pain, Orthopnea, Palpitations, Paroxysmal Noc. Dyspnea Respiratory: Denies: Cough, Shortness of breath at rest, Shortness of breath upon exertion, Sputum production Gastrointestinal: Denies: Abdominal Pain, Hematemesis, Hematochezia, Nausea, Melena, Vomiting Genitourinary: Denies: Dysuria, Frequency, Hematuria, Urgency Musculoskeletal: Denies: Joint Pain, Joint Tenderness Skin: Reports: Skin Changes Neurological: Denies: Focal weakness, Numbness, Tingling Psychiatric: Denies: Homicidal Ideations, Suicidal Ideations Hematologic/ Lymphatic: Denies: Easy Bruising, Easy Bleeding VTE Information - Inpt Only VTE Present on Admission: No VTE Mechan Device Prophylaxis: Knee High JEANNE Hose VTE Pharm Prophylaxis ordered?: Yes Objective: GENERAL: cooperative HEENT: Atraumatic; moist oral mucosa EYES; Anicteric, Normal Conjunctiva NECK; supple, normal thyroid, RESPIRATORY: Diminished to auscultation CARDIOVASCULAR: Regular S1 S2, GI: soft, non-tender, normoactive bowel sounds, : No Renal angle tenderness; EXTREMITIES: Right heel ulceration, left BKA MUSCULOSKELETAL: No Joint Tenderness; NEURO: Awake; no lateralizing signs. SKIN: No Rash PSYCH; Normal affect - Physical Exam Vital Signs Temp Pulse Resp BP Pulse Ox 97.9 F 88 16 144/73 H 100 01/07/19 11:22 01/07/19 11:22 01/07/19 11:22 01/07/19 11:22 01/07/19 11:22 Oxygen Delivery Method Room Air Weight: 106.594 kg Body Mass Index (BMI) 34.7 Laboratory Tests Past 24 Hrs 01/07/19 01/07/19 12:05 12:05 WBC 12.8 H RBC 4.13 L Hgb 11.5 L Hct 34.5 L MCV 83.5 MCH 27.8 MCHC 33.3 RDW Std Deviation 35.9 RDW Coeff of Geraldine 11.8 Plt Count 366 MPV 10.3 Immature Gran % (Auto) 0.800 Neut % (Auto) 76.4 H Lymph % (Auto) 15.5 L [place] % (Auto) 6.4 Eos % (Auto) 0.4 Baso % (Auto) 0.5 Absolute Neuts (auto) 9.8 H Absolute Lymphs (auto) 1.99 Nucleated RBC % 0 Sodium 134 L Potassium 3.3 L Chloride 99 Carbon Dioxide 23.0 Anion Gap 12 BUN 19 H Creatinine 1.45 H Estim Creat Clear Calc 54.85 Est GFR (MDRD) Af Amer 64 Est GFR (MDRD) Non-Af 53 L BUN/Creatinine Ratio 13.1 Glucose 449 H Calcium 9.2 Assessment/Plan All Active Problems (Last Reviewed 01/07/19 @ 13:30 by Ivan Colorado MD) Chronic ulcer of left foot with necrosis of muscle (Resolved) Ulcer of right foot with fat layer exposed (Acute) Puncture wound (Resolved) Lymphangitis, acute, lower leg (Resolved) Stroke (Resolved) Ulcer of right lower extremity with fat layer exposed (Resolved) MRSA (methicillin resistant staph aureus) culture positive (Resolved) Malnutrition (Resolved) Cellulitis of right leg (Acute) Patient is a 58-year-old gentleman who presented with right heel ulceration 1. An infected diabetic foot involving the right heel ~ underwent local debridement by Dr. Schultz in the emergency department cultures were taken started on broad-spectrum antibiotic therapy admitted to regular nursing floor for subsequent management 2. Diabetes mellitus type II ~Uncontrolled with hyperglycemia and diabetic nephropathy (chronic kidney disease stage III ), patient's oral hypoglycemics held. Placed on long acting insulin, Accu-Cheks a.c. and at bedtime and covered with sliding scale insulin 3. Coronary artery disease ~With previous quadruple bypass on recommended medications 4. Chronic kidney disease stage III ~Secondary to diabetic nephropathy and kidney function at baseline 5. Status post left BKA ~Patient wears prosthesis 6. Hypertension ~ blood pressure controlled, home medications continued with dose adjustment as needed 7. Dyslipidemia ~patient is on statin therapy, continued at home dose 8. GERD ?Patient is on PPI did continue 9. Depression ~Patient is on SNRI did continue 10. Chronic congestive heart failure (EF unspecified) ?Patient is on Lasix did continue 11. Obstructive sleep apnea ?Stable 12. DVT prophylaxis ~ on enoxaparin Code Visit Inpatient E&M: 14201 [facility] [place] [facility] L3
--- NOTE | 2019-01-07 13:11 | PCM.CONS.GEN ---
Problem List (1) Other specified peripheral vascular diseases Status: Chronic (2) Cellulitis of right leg Status: Acute (3) Type 2 diabetes mellitus with diabetic polyneuropathy Status: Resolved (4) Amputation of left lower extremity below knee Status: Chronic (5) Localized edema Status: Chronic (6) Malnutrition Status: Resolved (7) Delayed wound healing Status: Chronic (8) Lymphangitis, acute, lower leg Status: Resolved (9) Ulcer of right foot with fat layer exposed Status: Chronic Reason for Consult Date of Consultation: 01/07/19 Reason for Consultation: Black right heel History of Present Illness: The patient is a 58 year old M with multiple comorbidities presented to the emergency room with expanding black tissue to his right heel. Initially he sustained a puncture injury on November 13, 2018 with a screwdriver at home and this progressively developed an eschar that has been expanding in size. Most recently within the past 2 days this became red, developed an odor, and black tissue has expanded. He has worsening rest pain to the right lower extremity and it is noted he has a previous contralateral left leg below-knee amputation. Presents emergency room with his caregiver today. He denies any injuries. Past Medical History Past Medical History (Chronic Problems): Chronic Problems (Last Reviewed 01/07/19 @ 13:30 by Ivan Colorado MD) Type 2 diabetes mellitus with diabetic polyneuropathy (Chronic) Ulcer of right foot with fat layer exposed (Chronic) Amputation of left lower extremity below knee (Chronic) History of myocardial infarction (Chronic) Chronic kidney disease, stage III (moderate) (Chronic) HTN (hypertension) (Chronic) Heart disease (Chronic) Diabetes (Chronic) Benign hypertension (Chronic) Chronic kidney disease, stage III (moderate) (Chronic) Type 2 diabetes mellitus (Chronic) Gastroesophageal reflux disease (Chronic) Obesity (Chronic) History of CHF (congestive heart failure) (Chronic) Obstructive sleep apnea syndrome (Chronic) Chronic ulcer of right leg with necrosis of muscle (Chronic) Type 2 diabetes mellitus with diabetic polyneuropathy (Chronic) Other specified peripheral vascular diseases (Chronic) Localized edema (Chronic) Delayed wound healing (Chronic) Medical History: Medical History (Last Reviewed 01/07/19 @ 13:30 by Ivan Colorado MD) History of myocardial infarction (Chronic) I25.2 Stroke (Resolved) I63.9 HTN (hypertension) (Chronic) I10 Heart disease (Chronic) I51.9 Diabetes (Chronic) E11.9 Allergies No Known Allergies Allergy (Verified 01/07/19 11:22) Home Medications: Ambulatory Orders Medication Instructions Recorded insulin detemir (U-100) 100 60 unit SC QPM #6 vial 06/08/18 unit/mL subcutaneous solution lisinopril 20 mg tablet 20 mg PO DAILY #90 tab 10/19/18 furosemide 40 mg tablet 40 mg PO DAILY 12/09/18 Clopidogrel Bisulfate [Clopidogrel] 75 mg PO DAILY 12/31/18 Gabapentin [Neurontin] 300 mg PO TID 12/31/18 Terazosin HCl 2 mg PO BID 12/31/18 Venlafaxine HCl [Venlafaxine HCl 75 mg PO DAILY 12/31/18 ER] Aspirin E.C. [Ecotrin] 81 mg PO DAILY@0800 01/07/19 Atorvastatin Calcium 40 mg PO QHS 01/07/19 Esomeprazole Magnesium 20 mg PO DAILY 01/07/19 Metformin HCl 1,000 mg PO BID 01/07/19 carvedilol 12.5 mg tablet 12.5 mg PO BID #180 tab 01/07/19 insulin aspart U-100 100 unit/mL 10 unit SUBCUT TID #10 ml 01/07/19 subcutaneous solution ranitidine 150 mg tablet 150 mg PO DAILY #90 tab 01/07/19 Surgical History: Surgical History (Last Reviewed 01/07/19 @ 13:30 by Ivan Colorado MD) History of heart bypass surgery Z95.1 Status post left foot surgery Z98.890 2018, ulcer Surgical History: appendectomy Smoking Status: Former smoker - *Family History Maternal Family History: Family History (Last Reviewed 01/07/19 @ 13:30 by Ivan Colroado MD) Mother Heart disease Diabetes Father Heart disease Cancer Review of Systems Constitutional: Denies: Chills, Fever Cardiovascular: Reports: Claudication Respiratory: Denies: Shortness of Breath Gastrointestinal: Denies: Nausea, Vomiting Musculoskeletal: Reports: Foot Pain, Leg Pain Skin: Reports: Skin Changes, Wounds Neurological: Reports: Incoordination, Numbness, Tingling Endocrine: Reports: Change in Body Habitus - Physical Exam General: Alert, Oriented x3, Cooperative Extremities: No cyanosis, No Calf Tenderness, Diminished Peripheral Pulses, Edema, - - left below knee amputaton. Right delayed capillary refill time to the lesser digits is less than 6 seconds and there is no refill time noted with the hallux. There are no other ulcers or eschars noted to the right lower extremity Skin: Ulcer/ Wound - Eschar fibronecrotic devitalized plug to the posterior medial heel with underlying exposed muscle and fat tissue measures 2.5 cm x 2.5 cm with the depth of 0.1 cm pre-debridement and post debridement 2.7 x 2.7 x 0.5 cm. There is a peripheral area with blister formation with underlying non-blanchable ecchymotic and erythema colored tissue that has a diameter of 5 cm. There is no bogginess or fluctuance palpation. Foul odor is noted. There is no johan purulence on expression. There is erythema expanding approximately 1/2 cm from the site and into the medial arch. There is a lymphangitic streak extending up the medial leg distal to the knee area. His adjacent skin is hairless and atrophic. Musculoskeletal: No Tenderness to Palpation of Joints or Extremities, Muscle Wasting, Tenderness - Pain with heel compression and wound manipulation. Compartments to the foot ankle and leg remain soft to palpate right lower extremity. No skin tenting Neurological: - - Lack of normal epicritic sensation is consistent with his underlying neuropathic condition however he has continued pain Psych/Mental Status: Normal Affect, Appropriate, Agitated Vital Signs Temp Pulse Resp BP Pulse Ox 97.9 F 88 16 144/73 H 100 01/07/19 11:22 01/07/19 11:22 01/07/19 11:22 01/07/19 11:22 01/07/19 11:22 Oxygen Delivery Method Room Air Weight: 106.594 kg Body Mass Index (BMI) 34.7 Laboratory Tests Past 24 Hrs 01/07/19 01/07/19 12:05 12:05 WBC 12.8 H RBC 4.13 L Hgb 11.5 L Hct 34.5 L MCV 83.5 MCH 27.8 MCHC 33.3 RDW Std Deviation 35.9 RDW Coeff of Geraldine 11.8 Plt Count 366 MPV 10.3 Immature Gran % (Auto) 0.800 Neut % (Auto) 76.4 H Lymph % (Auto) 15.5 L [place] % (Auto) 6.4 Eos % (Auto) 0.4 Baso % (Auto) 0.5 Absolute Neuts (auto) 9.8 H Absolute Lymphs (auto) 1.99 Nucleated RBC % 0 Sodium 134 L Potassium 3.3 L Chloride 99 Carbon Dioxide 23.0 Anion Gap 12 BUN 19 H Creatinine 1.45 H Estim Creat Clear Calc 54.85 Est GFR (MDRD) Af Amer 64 Est GFR (MDRD) Non-Af 53 L BUN/Creatinine Ratio 13.1 Glucose 449 H Calcium 9.2 Assessment/Plan All Active Problems (Last Reviewed 01/07/19 @ 13:30 by Ivan Colorado MD) Chronic ulcer of left foot with necrosis of muscle (Resolved) Ulcer of right foot with fat layer exposed (Acute) Puncture wound (Resolved) Lymphangitis, acute, lower leg (Resolved) Stroke (Resolved) Ulcer of right lower extremity with fat layer exposed (Resolved) MRSA (methicillin resistant staph aureus) culture positive (Resolved) Malnutrition (Resolved) Cellulitis of right leg (Acute) Right foot ulcer with fat layer exposed, heel Cellulitis with lymphangitis Rule out bacteremia Severe peripheral vascular disease with ischemia progression Uncontrolled diabetes with neuropathy Left below-knee amputation Prior noncompliance I reviewed and discussed his case. Mr. Tracy has presented to the emergency room with progressive worsening status consistent with an infection and lack of arterial blood flow to the limb. His labs were reviewed and he does have leukocytosis of over 12. The ulcer site was debrided with a 15 blade and pickup after verbal consent was obtained and saline wash was performed. None devitalized devitalized tissue was excisionally removed including fibrous tissue, devitalized subcutaneous tissue, biofilm, slough, and eschar. The wound was evaluated as noted. His x-rays were reviewed without foreign body, soft tissue emphysema, radiographic evidence of osteomyelitis, fracture or dislocations. Vessel calcification is apparent. Deep wound cultures were obtained including aerobic, anaerobic, and I also recommend MRSA PCR. Blood cultures are pending. A wound dressing in the meantime was applied including Betadine gauze and Kerlix. I recommend broad spectrum antibiotic coverage until he stabilizes and cultures provide information. He has known severe peripheral vascular disease and had noncompressible vessels noted on his noninvasive vascular studies. His OBDULIA which is not accurate due to the noncompressible vessels was noted at 0.19 and his toe brachial index was 0.43. He is previously been referred to Dr. Hurtado and his missed prior appointments. Most recently he is rescheduled to see him this upcoming Thursday in the [place] office however was admitted due to status change. I reached out to Dr. Hurtado to see if he was available to see him otherwise a transfer or other referral would be considered. An arterial duplex of the leg or CTA will be ordered for today and to provide additional information and the consultation is greatly appreciated. The results are pending. Dr. Hurtado who plans to see him tomorrow after reviewing the studies. The patient understands he is at risk for limb loss or life threatening infection due to this condition. To continue to keep strict pressure off of this leg site by avoiding direct contact with the bed. I do also recommend he dangles the leg to help control his pain. To maintain proper glycemic control and nutritional supplementation to optmize healing. The podiatry team will continue to follow him while in-house. Please do not hesitate to call if you have any questions. Medical management and DVT prophylaxis per hospitalist service is greatly appreciated. Beulah Schultz DPM, [facility] [phone]
[2019-01-07] MEDS: Insulin Lispro 100 UNIT/ML INSULN.PEN 14 UNIT SC (13:13)
--- NOTE | 2019-01-07 13:14 | ADUL_ITS ---
Reason For Study: Diabetic foot ulcer Right Velocities Ext. Iliac Artery, dist = 188.8 cm./sec. Common Femoral Artery, mid = 233.8 cm./sec. Common Femoral Artery, dist = 104.5 cm./sec. Supf Femoral Artery, prox = 118 cm./sec. Supf Femoral Artery, mid = 92.1 cm./sec. Supf Femoral Artery, dist. = 208.9 cm./sec. Profunda Femoral Artery = 172.4 cm./sec. Popliteal Artery, prox. = 76.9 cm./sec. Popliteal Artery, mid = 73.2 cm./sec. Popliteal Artery, dist = 97.9 cm./sec. Post. Tibial Artery, prox = 56.7 cm./sec. Post. Tibial Artery, dist = 34.7 cm./sec. Peroneal Artery, prox = 31.4 cm./sec. Peroneal Artery,dist = 40.6 cm./sec. Ant. Tibial Artery, prox = 125.8 cm./sec. Ant. Tibial Artery, mid = 136.2 cm./sec. Ant. Tibial Artery, dist = 81.4 cm./sec. Unable to demonstrate flow in the Rt [employer] mid and PeroA mid. Procedure Exam performed portable in ED. Interpretation Summary 1. Right leg with occluded posterior tibial and mid peroneal. Mild stenosis in SFA distally and changes triphasic to biphasic flow. Mild stensosi in anterior tibial artery but mostly maintained biphasic flow. Ordering Physician: Gagandeep Sloan Referring Physician: Tay Lou M.D. Performed By: Luz Maria Khanna RVT
--- NOTE | 2019-01-07 13:31 | NURSING ---
med surg foot infection
--- NOTE | 2019-01-07 13:51 | NURSING ---
[facility] DIABETIC FOOT INFECTION [facility]AL[facility]
--- NOTE | 2019-01-07 13:56 | ED.RN ---
BLOOD CULTURES X2 DRAWN PRIOR TO ATB ADMINISTRATION.
[2019-01-07] MEDS: oxyCODONE 5 MG Tablet PO ×2 (16:10→20:51)
[2019-01-07] MEDS: Gabapentin 300 MG Capsule PO ×2 (16:10→21:34)
[2019-01-07] MEDS: Insulin Lispro 100 UNIT/ML INSULN.PEN 10 UNIT SC (16:11)
[2019-01-07] MEDS: Meclizine HCl 25 MG Tablet PO ×2 (16:11→21:34)
[2019-01-07] MEDS: Insulin Lispro 100 UNIT/ML INSULN.PEN SC ×2 (16:12→21:28)
[2019-01-07 16:21] LABS: Bedside Glucose 297 mg/dL (70-110)
--- NOTE | 2019-01-07 16:22 | PCM.RX.CS ---
Consult Pharmacy has been consulted to manage selected antiobiotic: Vancomycin Type of Consult: New start Suspected Infection: Skin/Soft tissue Prior Doses of Antibiotics Received/Current Regimen: Medications Vancomycin HCl 1,500 mg/ (Sodium Chloride) 530 mls @ 250 mls/hr IV X1 ONE to begin 01/07/19 1700 x1 then, Vancomycin HCl 750 mg/ Sodium (Chloride) 265 mls @ 250 mls/hr IV Q12H ESTELA to follow beginning 01/08/19 0500 Labs: Sodium 134 mmol/L (136-145) L 01/07/19 12:05 Potassium 3.3 mmol/L (3.5-5.1) L 01/07/19 12:05 Chloride 99 mmol/L (98-107) 01/07/19 12:05 Carbon Dioxide 23.0 mmol/L (21.0-32.0) 01/07/19 12:05 Anion Gap 12 (5-15) 01/07/19 12:05 BUN 19 mg/dL (7-18) H 01/07/19 12:05 Creatinine 1.45 mg/dL (0.70-1.30) H 01/07/19 12:05 Est GFR (MDRD) Af Amer 64 mL/min (>60) 01/07/19 12:05 Est GFR (MDRD) Non-Af 53 mL/min (>60) L 01/07/19 12:05 BUN/Creatinine Ratio 13.1 RATIO (10-20) 01/07/19 12:05 Glucose 449 mg/dL (74-106) H 01/07/19 12:05 Microbiology: Microbiology 01/07/19 13:00 Wound - Heel Right Gram Stain - Final Weight used for dosin.3 kg Estimated Creatinine Clearance: 54.85 Goal Trough: 10-15 mcg/mL Pharmacy Plan for Drug Dosing: Pharmacy Service will continue to monitor and adjust dosing as required. Follow-Up Labs: Trough Vancomycin - draw 30 minutes before dose due Labs to be done on [date and time ordered]: 01/09/19 0430 before 4th dose
[2019-01-07 17:46] LABS: M R Staph aureus DNA By PCR Negative (Negative); Probe Check PASS; Specimen Processing Control PASS; Staph aureus DNA By PCR POSITIVE (Negative)
--- NOTE | 2019-01-07 19:29 | NURSING ---
Phone call received from answering service for Dr Pringle stating that the office will need to be notified on Thursday of consult as there are no consults taken by the answering service on the weekends (including Thursday evenings).
[2019-01-07] MEDS: Carvedilol 12.5 MG Tablet PO (21:34)
[2019-01-07] MEDS: Doxazosin 1 MG Tablet 2 MG PO (21:34)
[2019-01-07] MEDS: Atorvastatin Calcium 40 MG Tablet PO (21:34)
[2019-01-07 21:45] LABS: Bedside Glucose 267 mg/dL (70-110)
[2019-01-08] MEDS: 0.9% NaCl IVPB Med Flush (250 mL) 15 ML IV (04:38)
[2019-01-08 04:40] VITALS: BP 130/59; PULSE 84; RESP 16; TEMP 36.6; O2SAT 95
[2019-01-08] MEDS: oxyCODONE 5 MG Tablet PO ×4 (06:01→20:56)
[2019-01-08] MEDS: Gabapentin 300 MG Capsule PO ×3 (06:01→20:55)
[2019-01-08] MEDS: Meclizine HCl 25 MG Tablet PO ×3 (06:02→20:56)
--- NOTE | 2019-01-08 07:21 | PCM.PN.HOSP ---
Subjective: CC follow-up diabetic foot infection Patient was admitted with right heel medic foot infection. Underwent bedside debridement ER cultures sent results pending. Patient was also started on broad-spectrum antibiotic therapy. Objective: GENERAL: cooperative HEENT: Atraumatic; moist oral mucosa EYES; Anicteric, Normal Conjunctiva NECK; supple, normal thyroid, RESPIRATORY: Diminished to auscultation CARDIOVASCULAR: Regular S1 S2, GI: soft, non-tender, normoactive bowel sounds, : No Renal angle tenderness; EXTREMITIES: Right heel ulceration, left BKA MUSCULOSKELETAL: No Joint Tenderness; NEURO: Awake; no lateralizing signs. SKIN: No Rash PSYCH; Normal affect Vitals/I&O's: Vital Signs Temp Pulse Resp BP Pulse Ox 98 F 84 16 130/59 H 95 01/08/19 04:40 01/08/19 04:40 01/08/19 04:40 01/08/19 04:40 01/08/19 04:40 Oxygen Delivery Method Room Air Weight: 98.293 kg Body Mass Index (BMI) 32.0 Intake and Output for Last 24 Hours 01/06/19 01/07/19 01/08/19 23:59 23:59 23:59 Intake Total 1070 / 1070 415 / 415 Output Total 300 / 300 350 / 350 Balance 770 / 770 65 / 65 Microbiology Past 72 Hours 01/07/19 13:00 Wound - Heel Right Gram Stain - Final Laboratory Results 01/07/19 12:05: WBC 12.8 H, RBC 4.13 L, Hgb 11.5 L, Hct 34.5 L, MCV 83.5, MCH 27.8, MCHC 33.3, RDW Std Deviation 35.9, RDW Coeff of Geraldine 11.8, Plt Count 366, MPV 10.3, Immature Gran % (Auto) 0.800, Neut % (Auto) 76.4 H, Lymph % (Auto) 15.5 L, Eddy % (Auto) 6.4, Eos % (Auto) 0.4, Baso % (Auto) 0.5, Absolute Neuts (auto) 9.8 H, Absolute Lymphs (auto) 1.99, Nucleated RBC % 0 01/07/19 12:05: Sodium 134 L, Potassium 3.3 L, Chloride 99, Carbon Dioxide 23.0, Anion Gap 12, BUN 19 H, Creatinine 1.45 H, Estim Creat Clear Calc 54.85, Est GFR (MDRD) Af Amer 64, Est GFR (MDRD) Non-Af 53 L, BUN/Creatinine Ratio 13.1, Glucose 449 H, Calcium 9.2 01/07/19 16:05: S.aureus Protein A PCR POSITIVE H, MRSA (PCR) Negative 01/07/19 16:10: POC Glucose 297 H 01/07/19 21:23: POC Glucose 267 H Current Medications Acetaminophen (Tylenol) 650 mg PO Q6H PRN PRN PRN Reason: Mild Pain (scale 0-3)/T>100.7 Al Hydroxide/Mg Hydroxide (Mylanta Ii) 30 ml PO Q6H PRN PRN PRN Reason: Gastric Burning [facility] Atorvastatin Calcium (Lipitor) 40 mg PO DAILY@2200 [facility] Last Admin: 01/07/19 21:34 Dose: 40 mg Documented by: Carvedilol (Coreg) 12.5 mg PO BID [facility] Last Admin: 01/07/19 21:34 Dose: 12.5 mg Documented by: Clopidogrel Bisulfate (Plavix) 75 mg PO DAILY [facility] Dextrose (D50w Syringe) 0 gm IV X1 PRN; Protocol PRN Reason: Hypoglycemia Doxazosin Mesylate (Cardura) 2 mg PO BID [facility] Last Admin: 01/07/19 21:34 Dose: 2 mg Documented by: Enoxaparin Sodium (Lovenox) 40 mg SC DAILY@1000 [facility] Famotidine (Pepcid) 20 mg PO DAILY [facility] Furosemide (Lasix) 40 mg PO DAILY [facility] Gabapentin (Neurontin) 300 mg PO TID [facility] Last Admin: 01/08/19 06:01 Dose: 300 mg Documented by: Glucagon () 1 mg IM .X1 PRN PRN Reason: Hypoglycemia Guaifenesin (Robitussin) 20 ml PO Q4H PRN PRN PRN Reason: COUGH Vancomycin IV Pharmacy to Dose (1 ea/ Sodium Chloride) 500 mls @ 250 mls/hr IV X1 PRN; Protocol PRN Reason: Rx to Dose Piperacillin Sod/Tazobactam (Sod 3.375 gm/ Sodium Chloride) 50 mls @ 12.5 mls/hr IV Q8 [facility] Last Admin: 01/08/19 06:02 Dose: 12.5 mls/hr Documented by: Sodium Chloride () 250 mls @ 15 mls/hr IV .[id number] PRN PRN Reason: SALINE FLUSH Last Infusion: 01/08/19 04:38 Dose: 0 mls/hr Documented by: Vancomycin HCl 750 mg/ Sodium (Chloride) 265 mls @ 250 mls/hr IV Q12H [facility] Last Infusion: 01/08/19 05:39 Dose: Infused Documented by: Insulin Glargine (Lantus (Bk)) 60 units SC QPM [facility] Last Admin: 01/07/19 21:26 Dose: 60 u Documented by: Insulin Human Lispro (Humalog Kwikpen ([facility])) 10 unit SC 0800,1200,1700 [facility] Last Admin: 01/07/19 16:11 Dose: 10 u Documented by: Insulin Human Lispro (Humalog Kwikpen ([facility])) 0 unit SC ACHS [facility]; Protocol Last Admin: 01/07/19 21:28 Dose: 9 units Documented by: Lisinopril (Zestril) 20 mg PO DAILY [facility] Magnesium Hydroxide (Milk Of Magnesia) 30 ml PO DAILY PRN PRN PRN Reason: Constipation Meclizine HCl (Antivert) 25 mg PO TID [facility] Last Admin: 01/08/19 06:02 Dose: 25 mg Documented by: Melatonin (Melatonin) 3 mg PO QHS PRN PRN PRN Reason: INSOMNIA Morphine Sulfate () 2 - 4 mg IV Q3H PRN PRN PRN Reason: Severe Pain (pain scale 6-10) Morphine Sulfate () 2 - 4 mg IV Q3H PRN PRN PRN Reason: Severe Pain (pain scale 6-10) Ondansetron HCl (Zofran) 4 mg IV Q8H PRN PRN PRN Reason: Nausea Oxycodone HCl (Oxyir) 5 mg PO Q4H PRN PRN PRN Reason: Moderate Pain (pain scale 4-5) Last Admin: 01/08/19 06:01 Dose: 5 mg Documented by: Potassium Chloride (K-Dur) 20 meq PO BIDCM [facility] Last Admin: 01/07/19 17:12 Dose: 20 meq Documented by: Sodium Chloride () 10 - 40 ml IV UD PRN PRN Reason: SALINE FLUSH Venlafaxine HCl (Effexor Xr) 75 mg PO DAILY [facility] Medical Necessity - Tobacco Use Smoking Status: Former smoker Tobacco Use: Cigarettes Assessment/Plan All Active Problems (Last Reviewed 01/07/19 @ 13:30 by Ivan Colorado MD) Chronic ulcer of left foot with necrosis of muscle (Resolved) Ulcer of right foot with fat layer exposed (Acute) Puncture wound (Resolved) Lymphangitis, acute, lower leg (Resolved) Stroke (Resolved) Ulcer of right lower extremity with fat layer exposed (Resolved) MRSA (methicillin resistant staph aureus) culture positive (Resolved) Malnutrition (Resolved) Cellulitis of right leg (Acute) Patient is a 58-year-old gentleman who presented with right heel ulceration 1. An infected diabetic foot involving the right heel ~ underwent local debridement by Dr. Schultz in the emergency department cultures were taken started on broad-spectrum antibiotic therapy admitted to regular nursing floor for subsequent management ?01/08/2019: Patient was seen in consultation by Dr. Pringle with infectious diseases note and recommendations reviewed. Consult was also placed to Dr. Hurtado with vascular surgery (patient was scheduled to follow-up with him on 01/10/2019 in the office) 2. Diabetes mellitus type II ~Uncontrolled with hyperglycemia and diabetic nephropathy (chronic kidney disease stage III ), patient's oral hypoglycemics held. Placed on long acting insulin, Accu-Cheks a.c. and at bedtime and covered with sliding scale insulin ?01/08/2019: Patient blood glucose control improved compared to his admitted blood glucose levels 3. Coronary artery disease ~With previous quadruple bypass on recommended medications 4. Chronic kidney disease stage III ~Secondary to diabetic nephropathy and kidney function at baseline 5. Severe peripheral arterial disease; status post left BKA ~Patient wears prosthesis 6. Hypertension ~ blood pressure controlled, home medications continued with dose adjustment as needed 7. Dyslipidemia ~patient is on statin therapy, continued at home dose 8. GERD ?Patient is on PPI did continue 9. Depression ~Patient is on SNRI did continue 10. Chronic congestive heart failure (EF unspecified) ?Patient is on Lasix did continue 11. Obstructive sleep apnea ?Stable 12. DVT prophylaxis ~ on enoxaparin Code Visit Inpatient E&M: 39906 Subs Hosp L2
[2019-01-08 07:37] LABS: Absolute Lymphocyte Count 2.41 X10^3/uL (0.83-4.51); Absolute Neutrophil Count 8.2 X10^3/uL (2.0-7.7); Basophil# 0.06 X10^3/uL; Basophil% 0.5 % (0-1); Eosinophil# 0.16 X10^3/uL; Eosinophils% 1.4 % (0-5); Hematocrit 33.2 % (40-54); Hemoglobin 10.9 g/dL (13.0-16.5); Lymphocyte # 2.41 X10^3/ul (4.0); Lymphocyte % 20.4 % (19-41); Mean Corp Hgb Conc 32.8 g/dL (32-36); Mean Corpuscular Hgb 27.8 pg (27.0-32.0); Mean Corpuscular Volume 84.7 fL (80-94); Mean Platelet Vol. 10.3 fl (6.2-12.0); Monocyte# 0.84 X10^3/uL; Monocyte% 7.1 % (0-10); NRBC Flagged by Analyzer 0 % (0-5); Neutrophil # 8.24 X10^3/uL (2.7-7.7); Neutrophil % 69.8 % (47-70); Platelet Count 307 K/mm3 (150-450); RBC Distribution Width CV 11.9 % (11.6-14.6); RBC Distribution Width SD 36.3 fl (35.1-43.9); Red Blood Count 3.92 M/mm3 (4.6-6.2); White Blood Count 11.8 K/mm3 (4.4-11.0)
[2019-01-08 07:41] LABS: Bedside Glucose 250 mg/dL (70-110)
[2019-01-08 07:45] VITALS: PULSE 90
[2019-01-08 07:57] LABS: Anion Gap 9 (5-15); BUN 15 mg/dL (7-18); BUN/Creat Ratio 14.7 RATIO (10-20); Calcium,Total 8.3 mg/dL (8.5-10.1); Chloride 104 mmol/L (98-107); Creatinine, Serum 1.02 mg/dL (0.70-1.30); EST Glomerular Filtration Rate 79 mL/min (>60); Est Glom Filt Rate - Afr Amer 96 mL/min (>60); Estimated Creatinine Clearance 77.98 ml/min; Glucose 273 mg/dL (74-106); Potassium 3.7 mmol/L (3.5-5.1); Sodium Level 139 mmol/L (136-145)
[2019-01-08] MEDS: Carvedilol 12.5 MG Tablet PO ×2 (07:57→20:56)
[2019-01-08] MEDS: Aspirin E.C. 81 MG Tablet PO (07:57)
[2019-01-08] MEDS: Doxazosin 1 MG Tablet 2 MG PO ×2 (07:57→20:55)
[2019-01-08] MEDS: Famotidine 20 MG Tablet PO (07:58)
[2019-01-08] MEDS: Insulin Lispro 100 UNIT/ML INSULN.PEN 10 UNIT SC ×3 (07:58→16:28)
[2019-01-08] MEDS: Furosemide 40 MG Tablet PO (07:58)
[2019-01-08] MEDS: Clopidogrel Bisulfate 75 MG Tablet PO (07:58)
[2019-01-08] MEDS: Insulin Lispro 100 UNIT/ML INSULN.PEN SC ×4 (07:59→21:14)
[2019-01-08] MEDS: Venlafaxine XR 75 MG Capsule PO (08:00)
--- NOTE | 2019-01-08 08:04 | PCM.PROGNOTE ---
Subjective: Patient was seen this morning for follow up on right heel ulceration infection. Patient believes there has been some improvement since yesterday. He relates he has lower extremity arterial duplex yesterday. Culture results pending. Dr. Hurtado has been consulted. Patient does not relate to any fever, chills, nausea or vomiting. Patient does relate to some pain to the heel. - Physical Exam General: Alert, Oriented x3, Cooperative, No apparent distress Extremities: No Calf Tenderness, - - Right heel with necrosis to the posterior aspect with localized surrounding cellulitis present, slight maloder, no fluctuance, no crepitus, no drainage, no macerations, no blistering, the streaking has resolved. No other open lesions or area of tissue break down right foot/ankle or leg, calf is soft and supple, right. Decreased sensation to the right foot c/w peripheral neuropathy. Chronic severe PAD to the right lower extremity, no evidence of acute ischemia. Left BKA. Vital Signs Temp Pulse Resp BP Pulse Ox 98 F 90 16 130/59 H 95 01/08/19 04:40 01/08/19 07:45 01/08/19 04:40 01/08/19 04:40 01/08/19 04:40 Oxygen Delivery Method Room Air Weight: 98.293 kg Body Mass Index (BMI) 32.0 Intake and Output for Last 24 Hours 01/06/19 01/07/19 01/08/19 23:59 23:59 23:59 Intake Total 1070 / 1070 415 / 415 Output Total 300 / 300 350 / 350 Balance 770 / 770 65 / 65 Microbiology Past 72 Hours 01/07/19 13:00 Gram Stain - Final Wound - Heel Right Laboratory Tests Past 24 Hrs 01/07/19 01/07/19 01/07/19 12:05 12:05 16:05 WBC 12.8 H RBC 4.13 L Hgb 11.5 L Hct 34.5 L MCV 83.5 MCH 27.8 MCHC 33.3 RDW Std Deviation 35.9 RDW Coeff of Geraldine 11.8 Plt Count 366 MPV 10.3 Immature Gran % (Auto) 0.800 Neut % (Auto) 76.4 H Lymph % (Auto) 15.5 L [place] % (Auto) 6.4 Eos % (Auto) 0.4 Baso % (Auto) 0.5 Absolute Neuts (auto) 9.8 H Absolute Lymphs (auto) 1.99 Nucleated RBC % 0 Sodium 134 L Potassium 3.3 L Chloride 99 Carbon Dioxide 23.0 Anion Gap 12 BUN 19 H Creatinine 1.45 H Estim Creat Clear Calc 54.85 Est GFR (MDRD) Af Amer 64 Est GFR (MDRD) Non-Af 53 L BUN/Creatinine Ratio 13.1 Glucose 449 H Calcium 9.2 S.aureus Protein A PCR POSITIVE H MRSA (PCR) Negative 01/08/19 01/08/19 06:45 06:45 WBC 11.8 H RBC 3.92 L Hgb 10.9 L Hct 33.2 L MCV 84.7 MCH 27.8 MCHC 32.8 RDW Std Deviation 36.3 RDW Coeff of Geraldine 11.9 Plt Count 307 MPV 10.3 Immature Gran % (Auto) 0.800 Neut % (Auto) 69.8 Lymph % (Auto) 20.4 [place] % (Auto) 7.1 Eos % (Auto) 1.4 Baso % (Auto) 0.5 Absolute Neuts (auto) 8.2 H Absolute Lymphs (auto) 2.41 Nucleated RBC % 0 Sodium 139 Potassium 3.7 Chloride 104 Carbon Dioxide 26.0 Anion Gap 9 BUN 15 Creatinine 1.02 Estim Creat Clear Calc 77.98 Est GFR (MDRD) Af Amer 96 Est GFR (MDRD) Non-Af 79 BUN/Creatinine Ratio 14.7 Glucose 273 H Calcium 8.3 L S.aureus Protein A PCR MRSA (PCR) POC Glucose 01/08/19 01/07/19 01/07/19 07:34 21:23 16:10 POC Glucose 250 H 267 H 297 H Medical Necessity - Tobacco Use Smoking Status: Former smoker Tobacco Use: Cigarettes Assessment/Plan All Active Problems (Last Reviewed 01/07/19 @ 13:30 by Ivan Colorado MD) Chronic ulcer of left foot with necrosis of muscle (Resolved) Ulcer of right foot with fat layer exposed (Acute) Puncture wound (Resolved) Lymphangitis, acute, lower leg (Resolved) Stroke (Resolved) Ulcer of right lower extremity with fat layer exposed (Resolved) MRSA (methicillin resistant staph aureus) culture positive (Resolved) Malnutrition (Resolved) Cellulitis of right leg (Acute) Severe peripheral arterial disease right lower extremity with heel ulcer/necrosis Cellulitis right heel, concern for underlying osteomyelitis to the calcaneus Diabetes, peripheral neuropathy Left BKA Other comorbidities Reviewed findings. WBC trending down, right foot xrays with no evidence of acute osteomyelitis. MRI was ordered of the right foot for further evaluation due to suspicion for calcaneal osteomyelitis. Patient also with severe PAD to the right lower extremity, patient had noninvasive lower extremity arterial studies, Dr. Hurtado has been consulted. Cultures have been obtained and pending, ID service has been consulted. Goal is to keep the area of necrosis dry until further workup is completed as noted above. Painted heel with betadine solution and applied overlying gauze/kerlix ray - keep clean, dry and intact. No weightbearing right heel. Keep right heel offloaded at all times, ordered offloading foam heel protector/offloading boot. Podiatry will continue to follow.
--- NOTE | 2019-01-08 08:12 | MRI_ITS ---
STUDY: MRI RIGHT REARFOOT WITHOUT CONTRAST REASON FOR EXAM: Male, 58 years old. Wound status post puncture injury. TECHNIQUE: Standardized fat and water weighted pulse sequences were obtained in all 3 orthogonal planes. COMPARISON: X-ray January 07, 2019. FINDINGS: There is posterior skin defect consistent with wound. There is marrow edema of the posterior calcaneus, series 3 images 01/06 through . There are healed fractures of the proximal third, fourth, and fifth metatarsals. Normal posterior tibialis tendon. Normal flexor digitorum longus tendon. Normal flexor hallucis longus tendon. There is tendinosis with thickening of the peroneal longus. There is mild fluid in the peroneal tendon sheath. Normal tibialis anterior tendon. Normal extensor hallucis longus tendon. Normal extensor digitorum longus tendons. Normal Achilles tendon and teno-osseous insertion. Normal plantar fascia. Normal plantar calcaneal tubercles. Normal intrinsic muscles of the rearfoot. Normal distal tibiofibular syndesmotic ligamentous complex. Normal lateral ligamentous complex. Normal subtalar ligaments and sinus tarsi. Normal deltoid ligamentous complexes. Normal plantar calcaneonavicular (spring) ligament. Normal tibiotalar articulation. Normal talar dome. Normal subtalar articulations. Normal talonavicular articulation. Normal calcaneocuboid articulation. Normal navicular-cuneiform articulations. MRI/Lower Ext/No Jt/w/o IMPRESSION: Marrow edema of the posterior calcaneus consistent with osteomyelitis Tenosynovitis of the peroneal longus. Electronically Signed: Fernando Sprague MD at 10:50 EDT , Service support ,
[2019-01-08] MEDS: 0.9% NaCl Peripheral Flush Adult/Peds IV (10:51)
[2019-01-08 10:52] VITALS: BP 145/88; PULSE 81; RESP 16; TEMP 36.5; O2SAT 99
[2019-01-08] MEDS: Enoxaparin 40 MG/0.4 ML Syringe SC (10:55)
[2019-01-08] MEDS: Lisinopril 20 MG Tablet PO (10:55)
[2019-01-08 11:51] LABS: Bedside Glucose 237 mg/dL (70-110)
[2019-01-08 14:00] VITALS: BP 156/85; PULSE 75; RESP 12; TEMP 36.6; O2SAT 100
[2019-01-08] MEDS: Glucerna Shake 120 ML LIQUID PO ×3 (14:08→21:23)
--- NOTE | 2019-01-08 16:13 | CM.UR ---
Addendum entered by Skyla Giles 01/08/19 16:21: [facility] case specialist is Nadia Harper: [phone] Himanshu Giles RN, CCM. Original Note: RN CM Assessment Introduced role of RN CM to patient. Patient is alert and able to participate in RN CM Assessment. Care providers, pharmacy, and demographics verified. No family at bedside. Presentation: Worsening foot wound Admit Dx: Ulcer right foot Re-Admit: no Barriers/Issues: Left BKA PCP: Dr. Stephanie Lou Specialists: isaura (wound care) and dr. Holden (eye) Preferred Pharmacy: [facility] [place] Insurance: [employer] Benefit: Yes. No co-pays. LNOK: sisterAnna LW/HPOA: none Living Arrangements: Lives alone in a mobile home with ramp in front and 6 steps in back. no problems w/accessibility. ADL?s: Requires assistance with bathing, cleaning, laundry. Able to dress, get something to eat and drive. Transportation: self or [employer] DME: None DME co: HHC: Does have [employer] via [employer]. 2 hours per day for 3 days a week. SNF: [facility] for rehab when had amputation. States NO to [facility]. Goal: Home w/[employer] but willing to go to SNF. DC PLAN: Home vs SNF Himanshu Giles RN, CCM.
[2019-01-08 16:40] LABS: Bedside Glucose 212 mg/dL (70-110)
--- NOTE | 2019-01-08 18:02 | PCM.CONS.GEN ---
Problem List (1) PAD (peripheral artery disease) Status: Acute (2) Ulcer of right lower extremity with fat layer exposed Status: Resolved Reason for Consult Date of Consultation: 01/08/19 Reason for Consultation: PAD History of Present Illness: The patient is a 58 year old M admitted in with worsening gangrene of his right heel. He is got some known underlying PAD. He is this is mostly related to been diabetic for over 30 years. Did see him a year ago around the time when he ended up needing a left leg amputation. He had a below-knee amputation that healed well. He had stepped on a punctured his right heel with a screwdriver in November 2018 this is slowly worsened and then over the last week a week and a half has increased in size. Came in the knees had an MRI that looks like he may have osteo-. Is actually due to see me in the clinic over the last week or 2 but was unable to make it. He had a duplex while he was here that showed pretty much triphasic flow all the way through the SFA with some mild stenosis distally and then a change to more biphasic waveform all the way through the popliteal. His posterior tibial artery appears to be occluded throughout. Peroneal was occluded in the midsegment. Anterior tibial artery was patent as best we could see and looked more like a biphasic waveform down through distally. He had ABIs done previously that showed the DP was noncompressible posterior tibial was 0.19 digit brachial index is 0.43. That has suggested both were monophasic waveform but I am getting more of a biphasic now on the DP. We have been asked for evaluate for limb salvage on this and his PAD. [] Past Medical History Past Medical History (Chronic Problems): Chronic Problems (Last Reviewed 01/07/19 @ 13:30 by Ivan Colorado MD) Type 2 diabetes mellitus with diabetic polyneuropathy (Chronic) Ulcer of right foot with fat layer exposed (Chronic) Amputation of left lower extremity below knee (Chronic) History of myocardial infarction (Chronic) Chronic kidney disease, stage III (moderate) (Chronic) HTN (hypertension) (Chronic) Heart disease (Chronic) Diabetes (Chronic) Benign hypertension (Chronic) Chronic kidney disease, stage III (moderate) (Chronic) Type 2 diabetes mellitus (Chronic) Gastroesophageal reflux disease (Chronic) Obesity (Chronic) History of CHF (congestive heart failure) (Chronic) Obstructive sleep apnea syndrome (Chronic) Chronic ulcer of right leg with necrosis of muscle (Chronic) Type 2 diabetes mellitus with diabetic polyneuropathy (Chronic) Other specified peripheral vascular diseases (Chronic) Localized edema (Chronic) Delayed wound healing (Chronic) Medical History: Medical History (Last Reviewed 01/08/19 @ 18:04 by Ryan Hurtado MD) History of myocardial infarction (Chronic) I25.2 Stroke (Resolved) I63.9 HTN (hypertension) (Chronic) I10 Heart disease (Chronic) I51.9 Diabetes (Chronic) E11.9 Allergies No Known Allergies Allergy (Verified 01/07/19 11:22) Home Medications: Ambulatory Orders Medication Instructions Recorded insulin detemir (U-100) 100 60 unit SC QPM #6 vial 06/08/18 unit/mL subcutaneous solution lisinopril 20 mg tablet 20 mg PO DAILY #90 tab 10/19/18 furosemide 40 mg tablet 40 mg PO DAILY 12/09/18 Clopidogrel Bisulfate [Clopidogrel] 75 mg PO DAILY 12/31/18 Gabapentin [Neurontin] 300 mg PO TID 12/31/18 Terazosin HCl 2 mg PO BID 12/31/18 Venlafaxine HCl [Venlafaxine HCl 75 mg PO DAILY 12/31/18 ER] Aspirin E.C. [Ecotrin] 81 mg PO DAILY@0800 01/07/19 Atorvastatin Calcium 40 mg PO QHS 01/07/19 Esomeprazole Magnesium 20 mg PO DAILY 01/07/19 Metformin HCl 1,000 mg PO BID 01/07/19 carvedilol 12.5 mg tablet 12.5 mg PO BID #180 tab 01/07/19 insulin aspart U-100 100 unit/mL 10 unit SUBCUT TID #10 ml 01/07/19 subcutaneous solution ranitidine 150 mg tablet 150 mg PO DAILY #90 tab 01/07/19 Surgical History: Surgical History (Last Reviewed 01/08/19 @ 18:04 by Ryan Hurtado MD) History of heart bypass surgery Z95.1 Status post left foot surgery Z98.890 2018, ulcer Surgical History: appendectomy Smoking Status: Former smoker Tobacco Use: Cigarettes - *Family History Maternal Family History: Family History (Last Reviewed 01/08/19 @ 18:04 by Ryan Hurtado MD) Mother Heart disease Diabetes Father Heart disease Cancer Review of Systems Constitutional: Denies: Chills, Fever, Weight Change HEENT: Denies: Head Aches, Sinus Congestion, Sinus Drainage Cardiovascular: Denies: Chest Pain, Palpitations Respiratory: Denies: Cough, Shortness of breath at rest, Sputum production Gastrointestinal: Denies: Abdominal Pain, Nausea, Vomiting Genitourinary: Denies: Dysuria Musculoskeletal: Denies: Joint Pain, Joint Tenderness Skin: Reports: Wounds - Gangrene right heel Patient Problems: Active and Suspected Problems (Last Reviewed 01/07/19 @ 13:30 by Ivan Colorado MD) PAD (peripheral artery disease) (Acute) - Physical Exam General: Alert, Oriented x3 HEENT: Atraumatic, PERRLA Oral: Moist Mucosa Neck: Supple, No JVD Lungs: Clear to auscultation Cardiovascular: Regular rate Abdomen: Soft, Non Tender Extremities: - - Biphasic waveforms mostly in the DP. He is got a monophasic posterior tibial signal. He is got a fairly strong digit signal as well. Large gangrenous area of his right heel Vital Signs Temp Pulse Resp BP Pulse Ox 97.8 F 75 12 156/85 H 100 01/08/19 14:00 01/08/19 14:00 01/08/19 14:00 01/08/19 14:00 01/08/19 14:00 Oxygen Delivery Method Room Air Weight: 216 lb 11.43 oz Body Mass Index (BMI) 32.0 Intake and Output for Last 24 Hours 01/06/19 01/07/19 01/08/19 23:59 23:59 23:59 Intake Total 1070 / 1070 505.50 / 505.50 Output Total 300 / 300 1285 / 1285 Balance 770 / 770 -779.50 / -779.50 Microbiology Past 72 Hours 01/07/19 15:47 Gram Stain - Final Wound - Right Foot Wound Culture - Preliminary Gram negative christina Gram positive organism 01/07/19 13:00 Gram Stain - Final Wound - Heel Right Wound Culture - Preliminary Gram negative christina Laboratory Tests Past 24 Hrs 01/08/19 01/08/19 06:45 06:45 WBC 11.8 H RBC 3.92 L Hgb 10.9 L Hct 33.2 L MCV 84.7 MCH 27.8 MCHC 32.8 RDW Std Deviation 36.3 RDW Coeff of Geraldine 11.9 Plt Count 307 MPV 10.3 Immature Gran % (Auto) 0.800 Neut % (Auto) 69.8 Lymph % (Auto) 20.4 [place] % (Auto) 7.1 Eos % (Auto) 1.4 Baso % (Auto) 0.5 Absolute Neuts (auto) 8.2 H Absolute Lymphs (auto) 2.41 Nucleated RBC % 0 Sodium 139 Potassium 3.7 Chloride 104 Carbon Dioxide 26.0 Anion Gap 9 BUN 15 Creatinine 1.02 Estim Creat Clear Calc 77.98 Est GFR (MDRD) Af Amer 96 Est GFR (MDRD) Non-Af 79 BUN/Creatinine Ratio 14.7 Glucose 273 H Calcium 8.3 L POC Glucose 01/08/19 01/08/19 01/08/19 16:23 11:14 07:34 POC Glucose 212 H 237 H 250 H 01/07/19 21:23 POC Glucose 267 H Assessment/Plan All Active Problems (Last Reviewed 01/07/19 @ 13:30 by Ivan Colorado MD) Chronic ulcer of left foot with necrosis of muscle (Resolved) Ulcer of right foot with fat layer exposed (Acute) Puncture wound (Resolved) Lymphangitis, acute, lower leg (Resolved) PAD (peripheral artery disease) (Acute) Stroke (Resolved) Ulcer of right lower extremity with fat layer exposed (Resolved) MRSA (methicillin resistant staph aureus) culture positive (Resolved) Malnutrition (Resolved) Cellulitis of right leg (Acute) Patient with significant risk of limb loss on this right leg as well. We will see if there is anything podiatry thinks they can do to salvage with some ostial narrowing to the heel. If so we would plan for an angiogram on this Thursday to see if there is anything we can improve through perfusion through the peroneal or the anterior tibial artery to get collateral flow into the area of the heel. He appears to have a long segment posterior tibial occlusion will will not be able to open this up most likely. We will talk with podiatry and consider treating this on Thursday area thank you for the consult
[2019-01-08 20:52] VITALS: BP 170/85; PULSE 75; RESP 18; TEMP 37.3; O2SAT 94
[2019-01-08] MEDS: Atorvastatin Calcium 40 MG Tablet PO (20:56)
[2019-01-08] MEDS: Magnesium Hydroxide 30 ML UDC PO (21:23)
[2019-01-08 21:28] VITALS: BP 151/88
[2019-01-08 23:15] LABS: Bedside Glucose 304 mg/dL (70-110)
[2019-01-09 02:45] VITALS: BP 149/76; PULSE 70; RESP 16; TEMP 36.9; O2SAT 97
[2019-01-09] MEDS: oxyCODONE 5 MG Tablet PO ×4 (02:47→22:21)
[2019-01-09 04:50] LABS: Absolute Lymphocyte Count 2.29 X10^3/uL (0.83-4.51); Absolute Neutrophil Count 8.7 X10^3/uL (2.0-7.7); Basophil# 0.04 X10^3/uL; Basophil% 0.3 % (0-1); Eosinophil# 0.15 X10^3/uL; Eosinophils% 1.2 % (0-5); Hematocrit 33.8 % (40-54); Hemoglobin 11.1 g/dL (13.0-16.5); Lymphocyte # 2.29 X10^3/ul (4.0); Lymphocyte % 18.9 % (19-41); Mean Corp Hgb Conc 32.8 g/dL (32-36); Mean Corpuscular Hgb 27.9 pg (27.0-32.0); Mean Corpuscular Volume 84.9 fL (80-94); Mean Platelet Vol. 9.9 fl (6.2-12.0); Monocyte# 0.91 X10^3/uL; Monocyte% 7.5 % (0-10); NRBC Flagged by Analyzer 0 % (0-5); Neutrophil # 8.68 X10^3/uL (2.7-7.7); Neutrophil % 71.6 % (47-70); Platelet Count 326 K/mm3 (150-450); RBC Distribution Width CV 11.7 % (11.6-14.6); Red Blood Count 3.98 M/mm3 (4.6-6.2); White Blood Count 12.1 K/mm3 (4.4-11.0)
[2019-01-09 05:06] LABS: Anion Gap 8 (5-15); BUN 12 mg/dL (7-18); BUN/Creat Ratio 13.3 RATIO (10-20); Calcium,Total 8.3 mg/dL (8.5-10.1); Chloride 103 mmol/L (98-107); EST Glomerular Filtration Rate 92 mL/min (>60); Est Glom Filt Rate - Afr Amer 111 mL/min (>60); Estimated Creatinine Clearance 88.38 ml/min; Glucose 148 mg/dL (74-106); Potassium 3.4 mmol/L (3.5-5.1); Sodium Level 139 mmol/L (136-145)
[2019-01-09 05:10] LABS: Vancomycin, Trough Level 10.4 ug/mL (5.0-15.0)
--- NOTE | 2019-01-09 06:29 | PCM.RX.CS ---
Consult Pharmacy has been consulted to manage selected antiobiotic: Vancomycin Type of Consult: Follow-up Suspected Infection: Skin/Soft tissue Labs: Sodium 139 mmol/L (136-145) 01/09/19 04:32 Potassium 3.4 mmol/L (3.5-5.1) L 01/09/19 04:32 Chloride 103 mmol/L (98-107) 01/09/19 04:32 Carbon Dioxide 28.0 mmol/L (21.0-32.0) 01/09/19 04:32 Anion Gap 8 (5-15) 01/09/19 04:32 BUN 12 mg/dL (7-18) 01/09/19 04:32 Creatinine 0.90 mg/dL (0.70-1.30) 01/09/19 04:32 Est GFR (MDRD) Af Amer 111 mL/min (>60) 01/09/19 04:32 Est GFR (MDRD) Non-Af 92 mL/min (>60) 01/09/19 04:32 BUN/Creatinine Ratio 13.3 RATIO (10-20) 01/09/19 04:32 Glucose 148 mg/dL (74-106) H 01/09/19 04:32 Vancomycin Trough 10.4 ug/mL (5.0-15.0) 01/09/19 04:32 Microbiology: Microbiology 01/07/19 15:47 Wound - Right Foot Gram Stain - Final 01/07/19 15:47 Wound - Right Foot Wound Culture - Preliminary Gram negative christina Gram positive organism 01/07/19 13:00 Wound - Heel Right Gram Stain - Final 01/07/19 13:00 Wound - Heel Right Wound Culture - Preliminary Gram negative christina Goal Trough: 10-15 mcg/mL Pharmacy Plan for Drug Dosing: Pharmacy Service will continue to monitor and adjust dosing as required. TROUGH 10.4 NO CHANGES. REDRAW TROUGH 01/13 @ 0430 Follow-Up Labs: Trough Vancomycin Labs to be done on [date and time ordered]: 01/13 9916
[2019-01-09] MEDS: Gabapentin 300 MG Capsule PO ×3 (06:30→22:21)
[2019-01-09] MEDS: Meclizine HCl 25 MG Tablet PO ×3 (06:30→22:20)
--- NOTE | 2019-01-09 07:12 | PN_ITS ---
Patient Problems: Active and Suspected Problems (Last Reviewed 01/08/19 @ 18:04 by Ryan Hurtado MD) PAD (peripheral artery disease) (Acute) Subjective: CC follow-up diabetic foot infection Patient seen cultures so far positive for Serratia species as well as gram- positive cocci final identification is pending. Patient was seen in consultation by Dr. Hurtado with vascular surgery plan is for patient to undergo arteriogram on 01/12/2019. Objective: GENERAL: cooperative HEENT: Atraumatic; moist oral mucosa EYES; Anicteric, Normal Conjunctiva NECK; supple, normal thyroid, RESPIRATORY: Diminished to auscultation CARDIOVASCULAR: Regular S1 S2, GI: soft, non-tender, normoactive bowel sounds, : No Renal angle tenderness; EXTREMITIES: Right heel ulceration, left BKA MUSCULOSKELETAL: No Joint Tenderness; NEURO: Awake; no lateralizing signs. SKIN: No Rash PSYCH; Normal affect Vitals/I&O's: Vital Signs Temp Pulse Resp BP Pulse Ox 98.5 F 70 16 149/76 H 97 01/09/19 02:45 01/09/19 02:45 01/09/19 02:45 01/09/19 02:45 01/09/19 02:45 Oxygen Delivery Method Room Air Weight: 98.3 kg Body Mass Index (BMI) 32.0 Intake and Output for Last 24 Hours 01/07/19 01/08/19 01/09/19 23:59 23:59 23:59 Intake Total 1070 / 1070 854.50 / 1254.50 1183.25 / 1183.25 Output Total 300 / 300 1575 / 2325 1150 / 1150 Balance 770 / 770 -720.50 / -1070.50 33.25 / 33.25 Microbiology Past 72 Hours 01/07/19 15:47 Wound - Right Foot Gram Stain - Final 01/07/19 15:47 Wound - Right Foot Wound Culture - Preliminary Gram negative christina Gram positive organism 01/07/19 13:00 Wound - Heel Right Gram Stain - Final 01/07/19 13:00 Wound - Heel Right Wound Culture - Preliminary Gram negative christina Laboratory Results 01/08/19 06:45: WBC 11.8 H, RBC 3.92 L, Hgb 10.9 L, Hct 33.2 L, MCV 84.7, MCH 27.8, MCHC 32.8, RDW Std Deviation 36.3, RDW Coeff of Geraldine 11.9, Plt Count 307, MPV 10.3, Immature Gran % (Auto) 0.800, Neut % (Auto) 69.8, Lymph % (Auto) 20.4, [place] % (Auto) 7.1, Eos % (Auto) 1.4, Baso % (Auto) 0.5, Absolute Neuts (auto) 8.2 H, Absolute Lymphs (auto) 2.41, Nucleated RBC % 0 01/08/19 06:45: Sodium 139, Potassium 3.7, Chloride 104, Carbon Dioxide 26.0, Anion Gap 9, BUN 15, Creatinine 1.02, Estim Creat Clear Calc 77.98, Est GFR (MDRD) Af Amer 96, Est GFR (MDRD) Non-Af 79, BUN/Creatinine Ratio 14.7, Glucose 273 H, Calcium 8.3 L 01/08/19 07:34: POC Glucose 250 H 01/08/19 11:14: POC Glucose 237 H 01/08/19 16:23: POC Glucose 212 H 01/08/19 21:12: POC Glucose 304 H 01/09/19 04:32: Sodium 139, Potassium 3.4 L, Chloride 103, Carbon Dioxide 28.0, Anion Gap 8, BUN 12, Creatinine 0.90, Estim Creat Clear Calc 88.38, Est GFR (MDRD) Af Amer 111, Est GFR (MDRD) Non-Af 92, BUN/Creatinine Ratio 13.3, Glucose 148 H, Calcium 8.3 L 01/09/19 04:32: WBC 12.1 H, RBC 3.98 L, Hgb 11.1 L, Hct 33.8 L, MCV 84.9, MCH 27.9, MCHC 32.8, RDW Std Deviation 36.0, RDW Coeff of Geraldine 11.7, Plt Count 326, MPV 9.9, Immature Gran % (Auto) 0.500, Neut % (Auto) 71.6 H, Lymph % (Auto) 18.9 L, [place] % (Auto) 7.5, Eos % (Auto) 1.2, Baso % (Auto) 0.3, Absolute Neuts (auto) 8.7 H, Absolute Lymphs (auto) 2.29, Nucleated RBC % 0 01/09/19 04:32: Vancomycin Trough 10.4 Current Medications Acetaminophen (Tylenol) 650 mg PO Q6H PRN PRN PRN Reason: Mild Pain (scale 0-3)/T>100.7 Al Hydroxide/Mg Hydroxide (Mylanta Ii) 30 ml PO Q6H PRN PRN PRN Reason: Gastric Burning Aspirin (Ecotrin) 81 mg PO DAILYCM [facility] Last Admin: 01/08/19 07:57 Dose: 81 mg Documented by: Atorvastatin Calcium (Lipitor) 40 mg PO DAILY@2200 [facility] Last Admin: 01/08/19 20:56 Dose: 40 mg Documented by: Carvedilol (Coreg) 12.5 mg PO BID [facility] Last Admin: 01/08/19 20:56 Dose: 12.5 mg Documented by: Clopidogrel Bisulfate (Plavix) 75 mg PO DAILY [facility] Last Admin: 01/08/19 07:58 Dose: 75 mg Documented by: Dextrose (D50w Syringe) 0 gm IV X1 PRN; Protocol PRN Reason: Hypoglycemia Doxazosin Mesylate (Cardura) 2 mg PO BID [facility] Last Admin: 01/08/19 20:55 Dose: 2 mg Documented by: Enoxaparin Sodium (Lovenox) 40 mg SC DAILY@1000 [facility] Last Admin: 01/08/19 10:55 Dose: 40 mg Documented by: Famotidine (Pepcid) 20 mg PO DAILY [facility] Last Admin: 01/08/19 07:58 Dose: 20 mg Documented by: Furosemide (Lasix) 40 mg PO DAILY [facility] Last Admin: 01/08/19 07:58 Dose: 40 mg Documented by: Gabapentin (Neurontin) 300 mg PO TID [facility] Last Admin: 01/09/19 06:30 Dose: 300 mg Documented by: Glucagon () 1 mg IM .X1 PRN PRN Reason: Hypoglycemia Guaifenesin (Robitussin) 20 ml PO Q4H PRN PRN PRN Reason: COUGH Vancomycin IV Pharmacy to Dose (1 ea/ Sodium Chloride) 500 mls @ 250 mls/hr IV X1 PRN; Protocol PRN Reason: Rx to Dose Piperacillin Sod/Tazobactam (Sod 3.375 gm/ Sodium Chloride) 50 mls @ 12.5 mls/hr IV Q8 [facility] Last Admin: 01/09/19 06:59 Dose: 12.5 mls/hr Documented by: Sodium Chloride () 250 mls @ 15 mls/hr IV .[id number] PRN PRN Reason: SALINE FLUSH Last Infusion: 01/09/19 06:59 Dose: 0 mls/hr Documented by: Vancomycin HCl 750 mg/ Sodium (Chloride) 265 mls @ 250 mls/hr IV Q12H [facility] Last Infusion: 01/09/19 05:55 Dose: Infused Documented by: Insulin Glargine (Lantus (Bkc)) 60 units SC QPM [facility] Last Admin: 01/08/19 21:13 Dose: 60 u Documented by: Insulin Human Lispro (Humalog Kwikpen ([facility])) 10 unit SC 0800,1200,1700 [facility] Last Admin: 01/08/19 16:28 Dose: 10 u Documented by: Insulin Human Lispro (Humalog Kwikpen ([facility])) 0 unit SC ACHS [facility]; Protocol Last Admin: 01/08/19 21:14 Dose: 9 units Documented by: Lisinopril (Zestril) 20 mg PO DAILY [facility] Last Admin: 01/08/19 10:55 Dose: 20 mg Documented by: Magnesium Hydroxide (Milk Of Magnesia) 30 ml PO DAILY PRN PRN PRN Reason: Constipation Last Admin: 01/08/19 21:23 Dose: 30 ml Documented by: Meclizine HCl (Antivert) 25 mg PO TID [facility] Last Admin: 01/09/19 06:30 Dose: 25 mg Documented by: Melatonin (Melatonin) 3 mg PO QHS PRN PRN PRN Reason: INSOMNIA Morphine Sulfate () 2 - 4 mg IV Q3H PRN PRN PRN Reason: Severe Pain (pain scale 6-10) Morphine Sulfate () 2 - 4 mg IV Q3H PRN PRN PRN Reason: Severe Pain (pain scale 6-10) Nutritional Formula (Lactose Free) (Glucerna Shake) 120 ml PO 4X/DAY [facility] Last Admin: 01/08/19 21:23 Dose: 120 ml Documented by: Ondansetron HCl (Zofran) 4 mg IV Q8H PRN PRN PRN Reason: Nausea Oxycodone HCl (Oxyir) 5 mg PO Q4H PRN PRN PRN Reason: Moderate Pain (pain scale 4-5) Last Admin: 01/09/19 06:59 Dose: 5 mg Documented by: Potassium Chloride (K-Dur) 20 meq PO BIDCM [facility] Last Admin: 01/08/19 16:28 Dose: 20 meq Documented by: Sodium Chloride () 10 - 40 ml IV UD PRN PRN Reason: SALINE FLUSH Last Admin: 01/08/19 10:51 Dose: 20 ml Documented by: Venlafaxine HCl (Effexor Xr) 75 mg PO DAILY [facility] Last Admin: 01/08/19 08:00 Dose: 75 mg Documented by: Medical Necessity - Tobacco Use Smoking Status: Former smoker Tobacco Use: Cigarettes Assessment/Plan All Active Problems (Last Reviewed 01/08/19 @ 18:04 by Ryan Hurtado MD) Chronic ulcer of left foot with necrosis of muscle (Resolved) Ulcer of right foot with fat layer exposed (Acute) Puncture wound (Resolved) Lymphangitis, acute, lower leg (Resolved) PAD (peripheral artery disease) (Acute) Stroke (Resolved) Ulcer of right lower extremity with fat layer exposed (Resolved) MRSA (methicillin resistant staph aureus) culture positive (Resolved) Malnutrition (Resolved) Cellulitis of right leg (Acute) Patient is a 58-year-old gentleman who presented with right heel ulceration 1. An infected diabetic foot involving the right heel ~ underwent local debridement by Dr. Schultz in the emergency department cultures were taken started on broad-spectrum antibiotic therapy admitted to regular nursing floor for subsequent management ?01/08/2019: Patient was seen in consultation by Dr. Pringle with infectious diseases note and recommendations reviewed. Consult was also placed to Dr. Hurtado with vascular surgery (patient was scheduled to follow-up with him on 01/10/2019 in the office) ?01/09/2019: Patient seen cultures so far positive for Serratia species as well as gram-positive cocci final identification is pending. Patient was seen in consultation by Dr. Hurtado with vascular surgery plan is for patient to undergo arteriogram on 01/12/2019. 2. Diabetes mellitus type II ~Uncontrolled with hyperglycemia and diabetic nephropathy (chronic kidney disease stage III ), patient's oral hypoglycemics held. Placed on long acting insulin, Accu-Cheks a.c. and at bedtime and covered with sliding scale insulin ?01/08/2019: Patient blood glucose control improved compared to his admitted blood glucose levels 3. Coronary artery disease ~With previous quadruple bypass on recommended medications 4. Chronic kidney disease stage III ~Secondary to diabetic nephropathy and kidney function at baseline 5. Severe peripheral arterial disease; status post left BKA ~Patient wears prosthesis 6. Hypertension ~ blood pressure controlled, home medications continued with dose adjustment as needed 7. Dyslipidemia ~patient is on statin therapy, continued at home dose 8. GERD ?Patient is on PPI did continue 9. Depression ~Patient is on SNRI did continue 10. Chronic congestive heart failure (EF unspecified) ?Patient is on Lasix did continue 11. Obstructive sleep apnea ?Stable 12. DVT prophylaxis ~ on enoxaparin Code Visit Inpatient E&M: 86714 Subs Hosp L2
[2019-01-09] MEDS: Insulin Lispro 100 UNIT/ML INSULN.PEN 10 UNIT SC ×3 (07:18→17:06)
[2019-01-09] MEDS: Aspirin E.C. 81 MG Tablet PO (07:21)
[2019-01-09 07:26] LABS: Bedside Glucose 103 mg/dL (70-110)
[2019-01-09] MEDS: Doxazosin 1 MG Tablet 2 MG PO ×2 (08:34→22:20)
[2019-01-09] MEDS: Furosemide 40 MG Tablet PO (08:34)
[2019-01-09] MEDS: Venlafaxine XR 75 MG Capsule PO (08:34)
[2019-01-09] MEDS: Carvedilol 12.5 MG Tablet PO ×2 (08:34→22:19)
[2019-01-09] MEDS: Famotidine 20 MG Tablet PO (08:34)
[2019-01-09] MEDS: Lisinopril 20 MG Tablet PO (08:35)
[2019-01-09] MEDS: Enoxaparin 40 MG/0.4 ML Syringe SC (08:35)
[2019-01-09] MEDS: Clopidogrel Bisulfate 75 MG Tablet PO (08:35)
[2019-01-09] MEDS: Glucerna Shake 120 ML LIQUID PO ×4 (08:38→22:24)
[2019-01-09 08:42] VITALS: BP 170/84; PULSE 73; RESP 16; TEMP 37.1; O2SAT 97
--- NOTE | 2019-01-09 09:01 | PCM.PROGNOTE ---
Patient Problems: Active and Suspected Problems (Last Reviewed 01/08/19 @ 18:04 by Ryan Hurtado MD) PAD (peripheral artery disease) (Acute) Subjective: Patient was seen this morning for follow up on right foot. MRI with bone marrow edema c/w osteomyelitis to the calcaneus. Dr. Hurtado has seen patient, and planning intervention on Thursday. Patient relates foot feels a little better today. He was in bed sitting up eating breakfast. No complaints of fever, chills nausea or vomiting. - Physical Exam General: Alert, Oriented x3, Cooperative, No apparent distress Extremities: - - Right heel with stable necrosis to the posterior aspect with localized surrounding cellulitis present, cellulitis with slight improvement, slight maloder (less than yesterday), no fluctuance, no crepitus, no drainage, no macerations, no blistering, no streaking. No other open lesions or area of tissue break down right foot/ankle or leg, calf is soft and supple, right. Decreased sensation to the right foot c/w peripheral neuropathy. Chronic severe PAD to the right lower extremity, no evidence of acute ischemia. Left BKA. Vital Signs Temp Pulse Resp BP Pulse Ox 98.7 F 73 16 170/84 H 97 01/09/19 08:42 01/09/19 08:42 01/09/19 08:42 01/09/19 08:42 01/09/19 08:42 Oxygen Delivery Method Room Air Weight: 98.3 kg Body Mass Index (BMI) 32.0 Intake and Output for Last 24 Hours 01/07/19 01/08/19 01/09/19 23:59 23:59 23:59 Intake Total 1070 / 1070 854.50 / 1254.50 1183.25 / 1183.25 Output Total 300 / 300 1575 / 2325 1150 / 1150 Balance 770 / 770 -720.50 / -1070.50 33.25 / 33.25 Microbiology Past 72 Hours 01/07/19 15:47 Gram Stain - Final Wound - Right Foot Wound Culture - Preliminary Gram negative christina Gram positive organism 01/07/19 13:00 Gram Stain - Final Wound - Heel Right Wound Culture - Preliminary Gram negative christina Laboratory Tests Past 24 Hrs 01/09/19 01/09/19 01/09/19 04:32 04:32 04:32 WBC 12.1 H RBC 3.98 L Hgb 11.1 L Hct 33.8 L MCV 84.9 MCH 27.9 MCHC 32.8 RDW Std Deviation 36.0 RDW Coeff of Geraldine 11.7 Plt Count 326 MPV 9.9 Immature Gran % (Auto) 0.500 Neut % (Auto) 71.6 H Lymph % (Auto) 18.9 L [place] % (Auto) 7.5 Eos % (Auto) 1.2 Baso % (Auto) 0.3 Absolute Neuts (auto) 8.7 H Absolute Lymphs (auto) 2.29 Nucleated RBC % 0 Sodium 139 Potassium 3.4 L Chloride 103 Carbon Dioxide 28.0 Anion Gap 8 BUN 12 Creatinine 0.90 Estim Creat Clear Calc 88.38 Est GFR (MDRD) Af Amer 111 Est GFR (MDRD) Non-Af 92 BUN/Creatinine Ratio 13.3 Glucose 148 H Calcium 8.3 L Vancomycin Trough 10.4 POC Glucose 01/09/19 01/08/19 01/08/19 07:17 21:12 16:23 POC Glucose 103 304 H 212 H 01/08/19 11:14 POC Glucose 237 H Medical Necessity - Tobacco Use Smoking Status: Former smoker Tobacco Use: Cigarettes Assessment/Plan All Active Problems (Last Reviewed 01/08/19 @ 18:04 by Ryan Hurtado MD) Chronic ulcer of left foot with necrosis of muscle (Resolved) Ulcer of right foot with fat layer exposed (Acute) Puncture wound (Resolved) Lymphangitis, acute, lower leg (Resolved) PAD (peripheral artery disease) (Acute) Stroke (Resolved) Ulcer of right lower extremity with fat layer exposed (Resolved) MRSA (methicillin resistant staph aureus) culture positive (Resolved) Malnutrition (Resolved) Cellulitis of right leg (Acute) Severe peripheral arterial disease right lower extremity with heel ulcer/necrosis Cellulitis right heel, underlying osteomyelitis to the calcaneus Diabetes, peripheral neuropathy Left BKA Other comorbidities Reviewed findings. WBC at 12.1, right foot xrays with no evidence of acute osteomyelitis. MRI was ordered of the right foot which showed bone marrow edema c/w osteomyelitis to the calcaneus. Patient with severe PAD to the right lower extremity, patient had noninvasive lower extremity arterial studies, Dr. Hurtado has been consulted and has evaluated patient, reviewed Dr. Hurtado's note. Cultures have been obtained, final results pending, continue with antibiotic therapy, ID service has been consulted. Goal is to keep the area of necrosis dry until further workup is completed as noted above. Painted heel with betadine solution and applied overlying gauze/kerlix ray - keep clean, dry and intact. No weightbearing right heel. Keep right heel offloaded at all times. Podiatry will continue to follow.
[2019-01-09] MEDS: Insulin Lispro 100 UNIT/ML INSULN.PEN SC ×3 (11:03→22:41)
[2019-01-09 11:11] LABS: Bedside Glucose 202 mg/dL (70-110)
[2019-01-09 11:41] VITALS: BP 172/73; PULSE 68; RESP 16; TEMP 36.8; O2SAT 100
[2019-01-09] MEDS: 0.9% NaCl IVPB Med Flush (250 mL) 15 ML IV (13:28)
[2019-01-09 15:54] VITALS: BP 158/64; PULSE 77; RESP 16; TEMP 37.3; O2SAT 99
[2019-01-09 16:06] LABS: Bedside Glucose 232 mg/dL (70-110)
[2019-01-09 22:17] VITALS: BP 182/92; PULSE 73; RESP 18; TEMP 37.2; O2SAT 96
[2019-01-09] MEDS: Atorvastatin Calcium 40 MG Tablet PO (22:26)
[2019-01-09 23:36] LABS: Bedside Glucose 301 mg/dL (70-110)
[2019-01-10] VITALS (7 sets, daily range): BP systolic 147–183; BP diastolic 71–94; PULSE 59–81; RESP 16–20; TEMP 36.7–37.1; O2SAT 96–99
[2019-01-10] MEDS: hydrALAZINE 20 MG/ML Vial 10 MG IV (01:28)
[2019-01-10 05:36] LABS: Absolute Lymphocyte Count 1.99 X10^3/uL (0.83-4.51); Absolute Neutrophil Count 9.5 X10^3/uL (2.0-7.7); Basophil# 0.06 X10^3/uL; Basophil% 0.5 % (0-1); Eosinophil# 0.14 X10^3/uL; Eosinophils% 1.1 % (0-5); Hematocrit 33.4 % (40-54); Hemoglobin 10.8 g/dL (13.0-16.5); Lymphocyte # 1.99 X10^3/ul (4.0); Lymphocyte % 15.8 % (19-41); Mean Corp Hgb Conc 32.3 g/dL (32-36); Mean Corpuscular Hgb 27.4 pg (27.0-32.0); Mean Corpuscular Volume 84.8 fL (80-94); Mean Platelet Vol. 10.2 fl (6.2-12.0); Monocyte# 0.88 X10^3/uL; NRBC Flagged by Analyzer 0 % (0-5); Neutrophil # 9.48 X10^3/uL (2.7-7.7); Platelet Count 298 K/mm3 (150-450); RBC Distribution Width CV 11.6 % (11.6-14.6); RBC Distribution Width SD 35.6 fl (35.1-43.9); Red Blood Count 3.94 M/mm3 (4.6-6.2); White Blood Count 12.6 K/mm3 (4.4-11.0)
[2019-01-10] MEDS: Gabapentin 300 MG Capsule PO ×3 (06:01→21:55)
[2019-01-10 06:06] LABS: BUN 13 mg/dL (7-18); Creatinine, Serum 1.12 mg/dL (0.70-1.30); Estimated Creatinine Clearance 71.02 ml/min; Glucose 325 mg/dL (74-106)
[2019-01-10 06:07] LABS: Anion Gap 7 (5-15); BUN/Creat Ratio 11.6 RATIO (10-20); Calcium,Total 8.2 mg/dL (8.5-10.1); Chloride 102 mmol/L (98-107); EST Glomerular Filtration Rate 71 mL/min (>60); Est Glom Filt Rate - Afr Amer 86 mL/min (>60); Potassium 3.8 mmol/L (3.5-5.1); Sodium Level 137 mmol/L (136-145)
--- NOTE | 2019-01-10 07:12 | PCM.PROGNOTE ---
Patient Problems: Active and Suspected Problems (Last Reviewed 01/08/19 @ 18:04 by Ryan Hrutado MD) Osteomyelitis (Acute) Gangrene (Acute) PAD (peripheral artery disease) (Acute) Subjective: This 58-year-old male with diabetes and peripheral vascular disease was seen bedside for right heel gangrene secondary to severe peripheral vascular disease. He has chills this morning which has been unchanged since hospital admission. He denies fever, nausea, vomiting. His pain is slightly reduced to the right heel. - Physical Exam General: Alert, Oriented x3, Cooperative Extremities: No Calf Tenderness - Negative Brooks, Diminished Peripheral Pulses, Edema - Decreased right foot, - - Capillary refill time less than 5 seconds right foot Skin: Ulcer/ Wound - Full-thickness eschar measuring approximately 3-1/2 cm in diameter without bogginess or fluctuance. No purulence, maceration, streaking, or lymphangitic streak noted. The peripheral erythema has also resolved. Musculoskeletal: No Tenderness to Palpation of Joints or Extremities, Muscle Wasting, Tenderness - Pain with eschar gangrenous heel patient. Compartments are soft to palpate right lower extremity. Left above-knee amputation noted Lymphatic: - - No popliteal lymphadenopathy right Neurological: - - Lack of normal epicritic sensation to light touch Vital Signs Temp Pulse Resp BP Pulse Ox 98.4 F 69 18 170/89 H 98 01/10/19 02:23 01/10/19 02:23 01/10/19 02:23 01/10/19 02:23 01/10/19 02:23 Oxygen Delivery Method Room Air Weight: 98.3 kg Body Mass Index (BMI) 32.0 Intake and Output for Last 24 Hours 01/08/19 01/09/19 01/10/19 23:59 23:59 23:59 Intake Total 854.50 / 1254.50 2684.25 / 3034.25 500 / 500 Output Total 1575 / 2325 2000 / 2850 1325 / 1325 Balance -720.50 / -1070.50 684.25 / 184.25 -825 / -825 Microbiology Past 72 Hours 01/07/19 12:30 Blood Culture - Preliminary Blood Culture (Wb) - Left Wrist No growth in 48 hours. 01/07/19 15:47 Gram Stain - Final Wound - Right Foot Wound Culture - Preliminary Serratia marcescens GPC Poss Enterococcus sp Staphylococcus species Gram positive christina 01/07/19 13:00 Gram Stain - Final Wound - Heel Right Wound Culture - Preliminary Serratia marcescens GPC Poss Enterococcus sp Laboratory Tests Past 24 Hrs 01/10/19 01/10/19 05:14 05:14 WBC 12.6 H RBC 3.94 L Hgb 10.8 L Hct 33.4 L MCV 84.8 MCH 27.4 MCHC 32.3 RDW Std Deviation 35.6 RDW Coeff of Geraldine 11.6 Plt Count 298 MPV 10.2 Immature Gran % (Auto) 0.600 Neut % (Auto) 75.0 H Lymph % (Auto) 15.8 L [place] % (Auto) 7.0 Eos % (Auto) 1.1 Baso % (Auto) 0.5 Absolute Neuts (auto) 9.5 H Absolute Lymphs (auto) 1.99 Nucleated RBC % 0 Sodium 137 Potassium 3.8 Chloride 102 Carbon Dioxide 28.0 Anion Gap 7 BUN 13 Creatinine 1.12 Estim Creat Clear Calc 71.02 Est GFR (MDRD) Af Amer 86 Est GFR (MDRD) Non-Af 71 BUN/Creatinine Ratio 11.6 Glucose 325 H Calcium 8.2 L POC Glucose 01/09/19 01/09/19 01/09/19 22:39 15:50 11:00 POC Glucose 301 H 232 H 202 H 01/09/19 07:17 POC Glucose 103 Medical Necessity - Tobacco Use Smoking Status: Former smoker Tobacco Use: Cigarettes Assessment/Plan All Active Problems (Last Reviewed 01/08/19 @ 18:04 by Ryan Hurtado MD) Osteomyelitis (Acute) Gangrene (Acute) Chronic ulcer of left foot with necrosis of muscle (Resolved) Ulcer of right foot with fat layer exposed (Acute) Puncture wound (Resolved) Lymphangitis, acute, lower leg (Resolved) PAD (peripheral artery disease) (Acute) Stroke (Resolved) Ulcer of right lower extremity with fat layer exposed (Resolved) MRSA (methicillin resistant staph aureus) culture positive (Resolved) Malnutrition (Resolved) Cellulitis of right leg (Acute) Severe peripheral arterial disease right lower extremity with heel ulcer/necrosis gangrene Cellulitis right heel, underlying osteomyelitis to the calcaneus; lymphangitis resolved Diabetes, peripheral neuropathy Left BKA Other comorbidities Reviewed findings. This morning, he is afebrile and his vital signs are stable. WBC at 12.6, right foot xrays with no evidence of acute osteomyelitis. MRI was ordered of the right foot which showed bone marrow edema c/w osteomyelitis to the calcaneus. Patient with severe PAD to the right lower extremity, patient had noninvasive lower extremity arterial studies, Dr. Hurtado's consultation is appreciated. Angioplasty is tentatively planned for this upcoming Thursday to attempt limb perfusion through the peroneal or the anterior tibial artery to get collateral flow into the area of the heel. He appears to have a long segment posterior tibial occlusion will will not be able to open this up most likely. Pending reperfusion status and stability of local tissue, outpatient wound care versus surgical debridement would be recommended. Cultures have been obtained and demonstrate multi-organism growth (Serratia marcescens, gram-positive cocci possible enterococcus species, Staphylococcus, and gram-positive christina). To continue with antibiotic therapy (vancomycin and Zosyn). ID service has been consulted. Painted heel with betadine solution and applied overlying gauze/kerlix ray - keep clean, dry and intact. No weightbearing right heel. Keep right heel offloaded at all times. Podiatry will continue to follow. Please not hesitate to call for any questions. Beulah Schultz DPM, [facility] [phone]
[2019-01-10] MEDS: Insulin Lispro 100 UNIT/ML INSULN.PEN SC ×4 (08:27→21:57)
[2019-01-10] MEDS: Insulin Lispro 100 UNIT/ML INSULN.PEN 10 UNIT SC ×3 (08:28→16:47)
[2019-01-10] MEDS: Lisinopril 20 MG Tablet PO (08:29)
[2019-01-10] MEDS: Carvedilol 12.5 MG Tablet PO ×2 (08:29→21:55)
[2019-01-10] MEDS: Clopidogrel Bisulfate 75 MG Tablet PO (08:29)
[2019-01-10] MEDS: Enoxaparin 40 MG/0.4 ML Syringe SC (08:30)
[2019-01-10] MEDS: Famotidine 20 MG Tablet PO (08:30)
[2019-01-10] MEDS: Furosemide 40 MG Tablet PO (08:30)
[2019-01-10] MEDS: Aspirin E.C. 81 MG Tablet PO (08:30)
[2019-01-10] MEDS: Venlafaxine XR 75 MG Capsule PO (08:31)
[2019-01-10] MEDS: Doxazosin 1 MG Tablet 2 MG PO ×2 (08:34→22:08)
[2019-01-10] MEDS: oxyCODONE 5 MG Tablet PO ×3 (08:37→20:02)
[2019-01-10 08:45] LABS: Bedside Glucose 326 mg/dL (70-110)
--- NOTE | 2019-01-10 09:26 | CASEMGMT ---
Social Work Note [facility] received call from pt's CM Shyann Harper requesting update and asking for discharge plans. BE[facility] informed Shyann that pt is scheduled for angioplasty Thursday and that discharge plans are not confirmed at this time. [facility] informed Shyann that RN CM spoke with pt over the weekend and pt prefers to return home but is willing to go to SNF if necessary. Shyann states that pt has aides for 2 hours every Thursday, Thursday and Thursday. Shyann states she is trying to get pt more help in the home but there is a shortage in aides. [facility] informed Shyann that this worker will keep her updated. Shyann provided direct number [phone] and fax number [phone]. Plan: TBD by medical treatment Luz Maria Gregory MSW, [employer]
--- NOTE | 2019-01-10 09:47 | PCM.PN.HOSP ---
Patient Problems: Active and Suspected Problems (Last Reviewed 01/08/19 @ 18:04 by Ryan Hurtado MD) Osteomyelitis (Acute) Gangrene (Acute) Subjective: Foot feeling better. Vitals/I&O's: Vital Signs Temp Pulse Resp BP Pulse Ox 36.9 C 77 16 169/94 H 99 01/10/19 08:24 01/10/19 08:24 01/10/19 08:24 01/10/19 08:24 01/10/19 08:24 Oxygen Delivery Method Room Air Weight: 98.3 kg Body Mass Index (BMI) 32.0 Intake and Output for Last 24 Hours 01/08/19 01/09/19 01/10/19 23:59 23:59 23:59 Intake Total 854.50 / 1254.50 2684.25 / 3034.25 765 / 765 Output Total 1575 / 2325 2000 / 2850 1325 / 1325 Balance -720.50 / -1070.50 684.25 / 184.25 -560 / -560 General: Alert, No apparent distress HEENT: Atraumatic, Normocephalic Oral: Moist Mucosa, No Gingival or Mucosal Lesions/ Ulcerations Neck: No Nodes, Thyroid Normal Size and Texture Lungs: Clear to auscultation, Normal air movement, No rhonchi, No wheeze Cardiovascular: Regular rate, Regular Rhythm, Normal S1, Normal S2, No murmurs Abdomen: Bowel Sounds Present, Soft, Non Tender, Non-Distended Extremities: - - right foot bandaged--did not remove. Psych/Mental Status: Normal Affect, Appropriate Microbiology Past 72 Hours 01/07/19 13:00 Wound - Heel Right Gram Stain - Final 01/07/19 13:00 Wound - Heel Right Wound Culture - Final Serratia marcescens Enterococcus faecalis 01/07/19 12:30 Blood Culture (Wb) - Left Wrist Blood Culture - Preliminary No growth in 48 hours. 01/07/19 15:47 Wound - Right Foot Gram Stain - Final 01/07/19 15:47 Wound - Right Foot Wound Culture - Preliminary Serratia marcescens GPC Poss Enterococcus sp Staphylococcus species Gram positive christina Laboratory Results 01/09/19 11:00: POC Glucose 202 H 01/09/19 15:50: POC Glucose 232 H 01/09/19 22:39: POC Glucose 301 H 01/10/19 05:14: Sodium 137, Potassium 3.8, Chloride 102, Carbon Dioxide 28.0, Anion Gap 7, BUN 13, Creatinine 1.12, Estim Creat Clear Calc 71.02, Est GFR (MDRD) Af Amer 86, Est GFR (MDRD) Non-Af 71, BUN/Creatinine Ratio 11.6, Glucose 325 H, Calcium 8.2 L 01/10/19 05:14: WBC 12.6 H, RBC 3.94 L, Hgb 10.8 L, Hct 33.4 L, MCV 84.8, MCH 27.4, MCHC 32.3, RDW Std Deviation 35.6, RDW Coeff of Geraldine 11.6, Plt Count 298, MPV 10.2, Immature Gran % (Auto) 0.600, Neut % (Auto) 75.0 H, Lymph % (Auto) 15.8 L, [place] % (Auto) 7.0, Eos % (Auto) 1.1, Baso % (Auto) 0.5, Absolute Neuts (auto) 9.5 H, Absolute Lymphs (auto) 1.99, Nucleated RBC % 0 01/10/19 08:22: POC Glucose 326 H Current Medications Acetaminophen (Tylenol) 650 mg PO Q6H PRN PRN PRN Reason: Mild Pain (scale 0-3)/T>100.7 Al Hydroxide/Mg Hydroxide (Mylanta Ii) 30 ml PO Q6H PRN PRN PRN Reason: Gastric Burning [facility] Admin: 01/10/19 08:30 Dose: 81 mg Documented by: Atorvastatin Calcium (Lipitor) 40 mg PO DAILY@2200 [facility] Last Admin: 01/09/19 22:26 Dose: 40 mg Documented by: Carvedilol (Coreg) 12.5 mg PO BID [facility] Last Admin: 01/10/19 08:29 Dose: 12.5 mg Documented by: Clopidogrel Bisulfate (Plavix) 75 mg PO DAILY [facility] Last Admin: 01/10/19 08:29 Dose: 75 mg Documented by: Dextrose (D50w Syringe) 0 gm IV X1 PRN; Protocol PRN Reason: Hypoglycemia Doxazosin Mesylate (Cardura) 2 mg PO BID [facility] Last Admin: 01/10/19 08:34 Dose: 2 mg Documented by: Enoxaparin Sodium (Lovenox) 40 mg SC DAILY@1000 [facility] Last Admin: 01/10/19 08:30 Dose: 40 mg Documented by: Famotidine (Pepcid) 20 mg PO DAILY [facility] Last Admin: 01/10/19 08:30 Dose: 20 mg Documented by: Furosemide (Lasix) 40 mg PO DAILY [facility] Last Admin: 01/10/19 08:30 Dose: 40 mg Documented by: Gabapentin (Neurontin) 300 mg PO TID [facility] Last Admin: 01/10/19 06:01 Dose: 300 mg Documented by: Glucagon () 1 mg IM .X1 PRN PRN Reason: Hypoglycemia Guaifenesin (Robitussin) 20 ml PO Q4H PRN PRN PRN Reason: COUGH Hydralazine HCl (Apresoline Iv) 10 mg IV Q4H PRN PRN PRN Reason: SBP > 160 Last Admin: 01/10/19 01:28 Dose: 10 mg Documented by: Vancomycin IV Pharmacy to Dose (1 ea/ Sodium Chloride) 500 mls @ 250 mls/hr IV X1 PRN; Protocol PRN Reason: Rx to Dose Piperacillin Sod/Tazobactam (Sod 3.375 gm/ Sodium Chloride) 50 mls @ 12.5 mls/hr IV Q8 [facility] Last Admin: 01/10/19 07:43 Dose: 12.5 mls/hr Documented by: Sodium Chloride () 250 mls @ 15 mls/hr IV .[id number] PRN PRN Reason: SALINE FLUSH Last Infusion: 01/10/19 02:30 Dose: 15 mls/hr Documented by: Vancomycin HCl 750 mg/ Sodium (Chloride) 265 mls @ 250 mls/hr IV Q12H [facility] Last Infusion: 01/10/19 07:10 Dose: Infused Documented by: Insulin Glargine (Lantus (Bkc)) 60 units SC QPM [facility] Last Admin: 01/09/19 22:40 Dose: 60 u Documented by: Insulin Human Lispro (Humalog Kwikpen (Bkc)) 10 unit SC 0800,1200,1700 [facility] Last Admin: 01/10/19 08:28 Dose: 10 u Documented by: Insulin Human Lispro (Humalog Kwikpen (Bkc)) 0 unit SC ACHS [facility]; Protocol Last Admin: 01/10/19 08:27 Dose: 12 units Documented by: Lisinopril (Zestril) 20 mg PO DAILY [facility] Last Admin: 01/10/19 08:29 Dose: 20 mg Documented by: Magnesium Hydroxide (Milk Of Magnesia) 30 ml PO DAILY PRN PRN PRN Reason: Constipation Last Admin: 01/08/19 21:23 Dose: 30 ml Documented by: Meclizine HCl (Antivert) 25 mg PO TID [facility] Last Admin: 01/10/19 06:01 Dose: Not Given Documented by: Melatonin (Melatonin) 3 mg PO QHS PRN PRN PRN Reason: INSOMNIA Morphine Sulfate () 2 - 4 mg IV Q3H PRN PRN PRN Reason: Severe Pain (pain scale 6-10) Morphine Sulfate () 2 - 4 mg IV Q3H PRN PRN PRN Reason: Severe Pain (pain scale 6-10) Nutritional Formula (Lactose Free) (Glucerna Shake) 120 ml PO 4X/DAY [facility] Last Admin: 01/10/19 08:38 Dose: Not Given Documented by: Ondansetron HCl (Zofran) 4 mg IV Q8H PRN PRN PRN Reason: Nausea Oxycodone HCl (Oxyir) 5 mg PO Q4H PRN PRN PRN Reason: Moderate Pain (pain scale 4-5) Last Admin: 01/10/19 08:37 Dose: 5 mg Documented by: Potassium Chloride (K-Dur) 20 meq PO BIDCM [facility] Last Admin: 01/10/19 08:31 Dose: 20 meq Documented by: Sodium Chloride () 10 - 40 ml IV UD PRN PRN Reason: SALINE FLUSH Last Admin: 01/08/19 10:51 Dose: 20 ml Documented by: Venlafaxine HCl (Effexor Xr) 75 mg PO DAILY [facility] Last Admin: 01/10/19 08:31 Dose: 75 mg Documented by: Medical Necessity - Tobacco Use Smoking Status: Former smoker Tobacco Use: Cigarettes Assessment/Plan All Active Problems (Last Reviewed 01/08/19 @ 18:04 by Ryan Hurtado MD) Osteomyelitis (Acute) Gangrene (Acute) Chronic ulcer of left foot with necrosis of muscle (Resolved) Ulcer of right foot with fat layer exposed (Acute) Puncture wound (Resolved) Lymphangitis, acute, lower leg (Resolved) Stroke (Resolved) Ulcer of right lower extremity with fat layer exposed (Resolved) MRSA (methicillin resistant staph aureus) culture positive (Resolved) Malnutrition (Resolved) Cellulitis of right leg (Acute) 1. Infected Right diabetic foot noted osteomyelitis of calcaneus. occluded posterior tibial and peroneal. mild stenosis in SFA and anterior tibial artery continue abx and supportive mgmt podiatry following and their plan contingent on reperfusion post-angioplasty (wound care v debridement) 2. Right calcaneal osteomyelitis as above 3. PAD plan for angioplasty of peroneal and anterior tibial arteries on 01/12 on ASA and clopidogrel and atorvastatin 4. DM2 uncontrolled--see labs already on 60 basal QHS will increase prandial insulin from 10 to 15 w meals. 5. CAD stable continue meds 6. VTE prophylaxis: LMWH. Code Visit Inpatient E&M: 19734 Subs Hosp L2
--- NOTE | 2019-01-10 11:15 | NURSING ---
Was consulted to see patient for necrotic right heel d/t severe PVD. Dr Schultz had been in this am and changed dressing. a betadine dressing was applied according to the progress note. awaiting Dr Hurtado's intervention this Thursday and then will decide on surgery. dressing intact at this time.
[2019-01-10 11:55] LABS: Bedside Glucose 325 mg/dL (70-110)
--- NOTE | 2019-01-10 13:13 | PCM.HP.ID ---
Problem List (1) Osteomyelitis Status: Acute Reason for Consult: osteo Consulted by: Dr. Blackburn History of Present Illness: The patient is a 58 year old M with DM, PVD, stroke who presented with several days of worsening R heel wound, gangrene, pain. No fever or chills. Wound started after he poked himself with a screwdriver about a month ago. No recent abx. Pain was burning, some bloody drainage. Some surrounding redness. Heel turned black. Came to ED, admitted on vanc/zosyn. Seen by podiatry and vascular surgery. No n/v/d on iv abx. Full ROS performed and neg except as noted above. - Medical History Past Medical History (Chronic Problems): Chronic Problems (Last Reviewed 01/08/19 @ 18:04 by Ryan Hurtado MD) Type 2 diabetes mellitus with diabetic polyneuropathy (Chronic) Ulcer of right foot with fat layer exposed (Chronic) PAD (peripheral artery disease) (Chronic) Amputation of left lower extremity below knee (Chronic) History of myocardial infarction (Chronic) Chronic kidney disease, stage III (moderate) (Chronic) HTN (hypertension) (Chronic) Heart disease (Chronic) Diabetes (Chronic) Benign hypertension (Chronic) Chronic kidney disease, stage III (moderate) (Chronic) Type 2 diabetes mellitus (Chronic) Gastroesophageal reflux disease (Chronic) Obesity (Chronic) History of CHF (congestive heart failure) (Chronic) Obstructive sleep apnea syndrome (Chronic) Chronic ulcer of right leg with necrosis of muscle (Chronic) Type 2 diabetes mellitus with diabetic polyneuropathy (Chronic) Other specified peripheral vascular diseases (Chronic) Localized edema (Chronic) Delayed wound healing (Chronic) Allergies/Adverse Reactions: Allergies No Known Allergies Allergy (Verified 01/07/19 11:22) Home Medications: Ambulatory Orders Medication Instructions Recorded insulin detemir (U-100) 100 60 unit SC QPM #6 vial 06/08/18 unit/mL subcutaneous solution lisinopril 20 mg tablet 20 mg PO DAILY #90 tab 10/19/18 furosemide 40 mg tablet 40 mg PO DAILY 12/09/18 Clopidogrel Bisulfate [Clopidogrel] 75 mg PO DAILY 12/31/18 Gabapentin [Neurontin] 300 mg PO TID 12/31/18 Terazosin HCl 2 mg PO BID 12/31/18 Venlafaxine HCl [Venlafaxine HCl 75 mg PO DAILY 12/31/18 ER] Aspirin E.C. [Ecotrin] 81 mg PO DAILY@0800 01/07/19 Atorvastatin Calcium 40 mg PO QHS 01/07/19 Esomeprazole Magnesium 20 mg PO DAILY 01/07/19 Metformin HCl 1,000 mg PO BID 01/07/19 carvedilol 12.5 mg tablet 12.5 mg PO BID #180 tab 01/07/19 insulin aspart U-100 100 unit/mL 10 unit SUBCUT TID #10 ml 01/07/19 subcutaneous solution ranitidine 150 mg tablet 150 mg PO DAILY #90 tab 01/07/19 - Social History SMOKING STATUS:: Former smoker Vital Signs Temp Pulse Resp BP Pulse Ox 98.5 F 77 16 169/94 H 99 01/10/19 08:24 01/10/19 08:24 01/10/19 08:24 01/10/19 08:24 01/10/19 08:24 Oxygen Delivery Method Room Air Weight: 98.3 kg Body Mass Index (BMI) 32.0 Microbiology Past 72 Hours 01/07/19 13:00 Gram Stain - Final Wound - Heel Right Wound Culture - Final Serratia marcescens Enterococcus faecalis Anaerobic Culture - Preliminary Checking for anaerobes, further studies to follow. 01/07/19 12:30 Blood Culture - Preliminary Blood Culture (Wb) - Left Wrist No growth in 48 hours. 01/07/19 15:47 Gram Stain - Final Wound - Right Foot Wound Culture - Preliminary Serratia marcescens GPC Poss Enterococcus sp Staphylococcus species Gram positive christina Laboratory Tests Past 24 Hrs 01/10/19 01/10/19 05:14 05:14 WBC 12.6 H RBC 3.94 L Hgb 10.8 L Hct 33.4 L MCV 84.8 MCH 27.4 MCHC 32.3 RDW Std Deviation 35.6 RDW Coeff of Geraldine 11.6 Plt Count 298 MPV 10.2 Immature Gran % (Auto) 0.600 Neut % (Auto) 75.0 H Lymph % (Auto) 15.8 L [place] % (Auto) 7.0 Eos % (Auto) 1.1 Baso % (Auto) 0.5 Absolute Neuts (auto) 9.5 H Absolute Lymphs (auto) 1.99 Nucleated RBC % 0 Sodium 137 Potassium 3.8 Chloride 102 Carbon Dioxide 28.0 Anion Gap 7 BUN 13 Creatinine 1.12 Estim Creat Clear Calc 71.02 Est GFR (MDRD) Af Amer 86 Est GFR (MDRD) Non-Af 71 BUN/Creatinine Ratio 11.6 Glucose 325 H Calcium 8.2 L - Other Studies Radiology: [] reviewed Other Studies: [] Route of nutrition/ use of supplements: [] Nutritional Intake: [] IV Site: [] Brown Catheter: [] - Physical Exam General: Alert, Oriented x3, Cooperative, No apparent distress HEENT: Atraumatic, PERRLA, EOMI Neck: Supple, No Nodes Lungs: Clear to auscultation, Normal air movement Cardiovascular: Regular rate, Regular Rhythm Abdomen: Soft, Non Tender, Non-Distended Extremities: Diminished Peripheral Pulses Skin: Ulcer/ Wound - reviewed photo of heel IV Site: Peripheral, without redness Neurological: Cranial nerves II-XII grossly intact - Assessment/Plan Antibiotics: [] Assessment/Plan: [] R heel osteo, gangrene with DM and PVD - cont vanc/zosyn for now. MSSA pcr (+). Wound cx with serratia, enterococcus, staph, GPR. Will follow, thank you.
[2019-01-10] MEDS: Glucerna Shake 120 ML LIQUID PO ×3 (14:14→22:08)
[2019-01-10 16:55] LABS: Bedside Glucose 153 mg/dL (70-110)
[2019-01-10] MEDS: Morphine 2 MG/ML Syringe IV (21:55)
[2019-01-10] MEDS: Atorvastatin Calcium 40 MG Tablet PO (21:55)
[2019-01-10] MEDS: 0.9% NaCl Peripheral Flush Adult/Peds IV (22:08)
[2019-01-10 22:11] LABS: Bedside Glucose 209 mg/dL (70-110)
[2019-01-11] VITALS (7 sets, daily range): BP systolic 127–185; BP diastolic 64–106; PULSE 72–83; RESP 12–18; TEMP 36.7–37.3; O2SAT 95–100
[2019-01-11] MEDS: Morphine 2 MG/ML Syringe IV ×3 (02:04→11:06)
[2019-01-11] MEDS: 0.9% NaCl Peripheral Flush Adult/Peds IV ×5 (02:05→18:14)
[2019-01-11] MEDS: Gabapentin 300 MG Capsule PO ×3 (06:31→22:02)
[2019-01-11 07:30] LABS: Bedside Glucose 175 mg/dL (70-110)
--- NOTE | 2019-01-11 07:45 | NURSING ---
wound photo: right heel
--- NOTE | 2019-01-11 07:45 | NURSING ---
wound photo: right heel
[2019-01-11] MEDS: Insulin Lispro 100 UNIT/ML INSULN.PEN SC ×4 (08:00→21:59)
[2019-01-11] MEDS: Insulin Lispro 100 UNIT/ML INSULN.PEN 15 UNIT SC ×3 (08:01→15:56)
[2019-01-11] MEDS: Aspirin E.C. 81 MG Tablet PO (08:02)
[2019-01-11] MEDS: Venlafaxine XR 75 MG Capsule PO (08:02)
[2019-01-11] MEDS: Carvedilol 12.5 MG Tablet PO ×2 (08:02→22:02)
[2019-01-11] MEDS: Lisinopril 20 MG Tablet PO (08:03)
[2019-01-11] MEDS: Clopidogrel Bisulfate 75 MG Tablet PO (08:03)
[2019-01-11] MEDS: Famotidine 20 MG Tablet PO (08:03)
--- NOTE | 2019-01-11 09:38 | PCM.PN.HOSP ---
Patient Problems: Active and Suspected Problems (Last Reviewed 01/08/19 @ 18:04 by Ryan Hurtado MD) Osteomyelitis (Acute) Subjective: Pain in right leg and foot. No BM in 4 days. Vitals/I&O's: Vital Signs Temp Pulse Resp BP Pulse Ox 36.7 C 75 14 155/98 H 97 01/11/19 02:00 01/11/19 02:00 01/11/19 02:00 01/11/19 02:00 01/11/19 02:00 Oxygen Delivery Method Room Air Weight: 98.3 kg Body Mass Index (BMI) 32.0 Intake and Output for Last 24 Hours 01/09/19 01/10/19 01/11/19 23:59 23:59 23:59 Intake Total 2684.25 / 3034.25 1518.75 / 1518.75 762.5 / 762.5 Output Total 1999 2325 / 2325 925 / 925 Balance 684.25 / 184.25 -806.25 / -806.25 -162.5 / -162.5 General: Alert, No apparent distress HEENT: Atraumatic, Normocephalic Oral: Moist Mucosa, No Gingival or Mucosal Lesions/ Ulcerations Neck: No Nodes, Thyroid Normal Size and Texture Lungs: Clear to auscultation, Normal air movement, No rhonchi, No wheeze, No rales Cardiovascular: Regular rate, Regular Rhythm, Normal S1, Normal S2, No murmurs Abdomen: Bowel Sounds Present, Soft, Non Tender, Non-Distended Extremities: No edema, - - right foot bandaged--did not remove. reviewed wound care pic from today: large right heel eschar with faint surrounding erythema. Psych/Mental Status: Normal Affect, Appropriate Microbiology Past 72 Hours 01/07/19 15:47 Wound - Right Foot Gram Stain - Final 01/07/19 15:47 Wound - Right Foot Wound Culture - Final Serratia marcescens Enterococcus faecalis Coag Negative Staph Gram positive christina 01/07/19 15:47 Wound - Right Foot Anaerobic Culture - Preliminary Checking for anaerobes, further studies to follow. 01/07/19 13:00 Wound - Heel Right Gram Stain - Final 01/07/19 13:00 Wound - Heel Right Wound Culture - Final Serratia marcescens Enterococcus faecalis 01/07/19 13:00 Wound - Heel Right Anaerobic Culture - Preliminary Checking for anaerobes, further studies to follow. 01/07/19 12:30 Blood Culture (Wb) - Left Wrist Blood Culture - Preliminary No growth in 48 hours. Laboratory Results 01/10/19 11:47: POC Glucose 325 H 01/10/19 16:42: POC Glucose 153 H 01/10/19 21:51: POC Glucose 209 H 01/11/19 07:26: POC Glucose 175 H Current Medications Acetaminophen (Tylenol) 650 mg PO Q6H PRN PRN PRN Reason: Mild Pain (scale 0-3)/T>100.7 Al Hydroxide/Mg Hydroxide (Mylanta Ii) 30 ml PO Q6H PRN PRN PRN Reason: Gastric Burning Aspirin (Ecotrin) 81 mg PO DAILYCM [facility] Last Admin: 01/11/19 08:02 Dose: 81 mg Documented by: Atorvastatin Calcium (Lipitor) 40 mg PO DAILY@2200 [facility] Last Admin: 01/10/19 21:55 Dose: 40 mg Documented by: Carvedilol (Coreg) 12.5 mg PO BID [facility] Last Admin: 01/11/19 08:02 Dose: 12.5 mg Documented by: Clopidogrel Bisulfate (Plavix) 75 mg PO DAILY [facility] Last Admin: 01/11/19 08:03 Dose: 75 mg Documented by: Dextrose (D50w Syringe) 0 gm IV X1 PRN; Protocol PRN Reason: Hypoglycemia Doxazosin Mesylate (Cardura) 2 mg PO BID [facility] Last Admin: 01/10/19 22:08 Dose: 2 mg Documented by: Enoxaparin Sodium (Lovenox) 40 mg SC DAILY@1000 [facility] Last Admin: 01/10/19 08:30 Dose: 40 mg Documented by: Famotidine (Pepcid) 20 mg PO DAILY [facility] Last Admin: 01/11/19 08:03 Dose: 20 mg Documented by: Furosemide (Lasix) 40 mg PO DAILY [facility] Last Admin: 01/10/19 08:30 Dose: 40 mg Documented by: Gabapentin (Neurontin) 300 mg PO TID [facility] Last Admin: 01/11/19 06:31 Dose: 300 mg Documented by: Glucagon () 1 mg IM .X1 PRN PRN Reason: Hypoglycemia Guaifenesin (Robitussin) 20 ml PO Q4H PRN PRN PRN Reason: COUGH Hydralazine HCl (Apresoline Iv) 10 mg IV Q4H PRN PRN PRN Reason: SBP > 160 Last Admin: 01/10/19 01:28 Dose: 10 mg Documented by: Vancomycin IV Pharmacy to Dose (1 ea/ Sodium Chloride) 500 mls @ 250 mls/hr IV X1 PRN; Protocol PRN Reason: Rx to Dose Piperacillin Sod/Tazobactam (Sod 3.375 gm/ Sodium Chloride) 50 mls @ 12.5 mls/hr IV Q8 [facility] Last Admin: 01/11/19 06:31 Dose: 12.5 mls/hr Documented by: Vancomycin HCl 750 mg/ Sodium (Chloride) 265 mls @ 250 mls/hr IV Q12H [facility] Last Infusion: 01/11/19 06:32 Dose: Infused Documented by: Insulin Glargine (Lantus (Bkc)) 60 units SC QPM [facility] Last Admin: 01/10/19 21:56 Dose: 60 u Documented by: Insulin Human Lispro (Humalog Kwikpen (Bkc)) 0 unit SC ACHS [facility]; Protocol Last Admin: 01/11/19 08:00 Dose: 3 units Documented by: Insulin Human Lispro (Humalog Kwikpen (Bkc)) 15 unit SC 0800,1200,1700 [facility] Last Admin: 01/11/19 08:01 Dose: 15 units Documented by: Lisinopril (Zestril) 20 mg PO DAILY [facility] Last Admin: 01/11/19 08:03 Dose: 20 mg Documented by: Magnesium Hydroxide (Milk Of Magnesia) 30 ml PO DAILY PRN PRN PRN Reason: Constipation Last Admin: 01/08/19 21:23 Dose: 30 ml Documented by: Meclizine HCl (Antivert) 25 mg PO TID [facility] Last Admin: 01/11/19 05:11 Dose: Not Given Documented by: Melatonin (Melatonin) 3 mg PO QHS PRN PRN PRN Reason: INSOMNIA Morphine Sulfate () 2 - 4 mg IV Q3H PRN PRN PRN Reason: Severe Pain (pain scale 6-10) Last Admin: 01/11/19 08:09 Dose: 2 mg Documented by: Morphine Sulfate () 2 - 4 mg IV Q3H PRN PRN PRN Reason: Severe Pain (pain scale 6-10) Nutritional Formula (Lactose Free) (Glucerna Shake) 120 ml PO 4X/DAY [facility] Last Admin: 01/11/19 08:15 Dose: Not Given Documented by: Ondansetron HCl (Zofran) 4 mg IV Q8H PRN PRN PRN Reason: Nausea Oxycodone HCl (Oxyir) 5 mg PO Q4H PRN PRN PRN Reason: Moderate Pain (pain scale 4-5) Last Admin: 01/10/19 20:02 Dose: 5 mg Documented by: Potassium Chloride (K-Dur) 20 meq PO BIDCM [facility] Last Admin: 01/11/19 08:02 Dose: 20 meq Documented by: Sodium Chloride () 10 - 40 ml IV UD PRN PRN Reason: SALINE FLUSH Last Admin: 01/11/19 08:10 Dose: 10 ml Documented by: Venlafaxine HCl (Effexor Xr) 75 mg PO DAILY [facility] Last Admin: 01/11/19 08:02 Dose: 75 mg Documented by: Medical Necessity - Tobacco Use Smoking Status: Former smoker Tobacco Use: Cigarettes Assessment/Plan All Active Problems (Last Reviewed 01/08/19 @ 18:04 by Ryan Hurtado MD) Osteomyelitis (Acute) Gangrene (Acute) Chronic ulcer of left foot with necrosis of muscle (Resolved) Ulcer of right foot with fat layer exposed (Acute) Puncture wound (Resolved) Lymphangitis, acute, lower leg (Resolved) Stroke (Resolved) Ulcer of right lower extremity with fat layer exposed (Resolved) MRSA (methicillin resistant staph aureus) culture positive (Resolved) Malnutrition (Resolved) Cellulitis of right leg (Acute) 1. Infected Right diabetic foot noted osteomyelitis of calcaneus. occluded posterior tibial and peroneal. mild stenosis in SFA and anterior tibial artery continue abx and supportive mgmt podiatry following and their plan contingent on reperfusion post-angioplasty (wound care v debridement) 2. Right calcaneal osteomyelitis as above 3. PAD plan for angioplasty of peroneal and anterior tibial arteries on 01/12 on ASA and clopidogrel and atorvastatin 4. DM2 uncontrolled--see labs some improvement already on 60 basal QHS will increase prandial insulin from 10 to 15 w meals. 5. CAD stable continue meds 6. VTE prophylaxis: LMWH. Code Visit Inpatient E&M: 26918 Subs Hosp L2
[2019-01-11] MEDS: Enoxaparin 40 MG/0.4 ML Syringe SC (09:44)
[2019-01-11] MEDS: Furosemide 40 MG Tablet PO (09:44)
[2019-01-11] MEDS: Doxazosin 1 MG Tablet 2 MG PO ×2 (09:50→22:07)
--- NOTE | 2019-01-11 09:57 | PCM.PN.ID ---
Patient Problems: Active and Suspected Problems (Last Reviewed 01/08/19 @ 18:04 by Ryan Hurtado MD) Osteomyelitis (Acute) Subjective: Feeling well, foot with some pain, no fever, no n/v/d. - Physical Exam General: Alert, Cooperative, No apparent distress Lungs: Clear to auscultation, Normal air movement Cardiovascular: Regular rate, Regular Rhythm Abdomen: Soft, Non Tender, Non-Distended Skin: Ulcer/ Wound - reviewed photos Vital Signs Temp Pulse Resp BP Pulse Ox 99.0 F 74 18 127/71 H 95 01/11/19 09:29 01/11/19 09:29 01/11/19 09:29 01/11/19 09:29 01/11/19 09:29 Oxygen Delivery Method Room Air Weight: 98.3 kg Body Mass Index (BMI) 32.0 Intake and Output for Last 24 Hours 01/09/19 01/10/19 01/11/19 23:59 23:59 23:59 Intake Total 2684.25 / 3034.25 1518.75 / 1518.75 762.5 / 762.5 Output Total 1999 / 0 2325 / 2325 925 / 925 Balance 684.25 / 184.25 -806.25 / -806.25 -162.5 / -162.5 Microbiology Past 72 Hours 01/07/19 15:47 Gram Stain - Final Wound - Right Foot Wound Culture - Final Serratia marcescens Enterococcus faecalis Coag Negative Staph Gram positive christina Anaerobic Culture - Preliminary Checking for anaerobes, further studies to follow. 01/07/19 13:00 Gram Stain - Final Wound - Heel Right Wound Culture - Final Serratia marcescens Enterococcus faecalis Anaerobic Culture - Preliminary Checking for anaerobes, further studies to follow. 01/07/19 12:30 Blood Culture - Preliminary Blood Culture (Wb) - Left Wrist No growth in 48 hours. POC Glucose 01/11/19 01/10/19 01/10/19 07:26 21:51 16:42 POC Glucose 175 H 209 H 153 H 01/10/19 11:47 POC Glucose 325 H Medical Necessity - Tobacco Use Smoking Status: Former smoker Tobacco Use: Cigarettes Route of nutrition/ use of supplements: [] Nutritional Intake: [] IV Site: [] Brown Catheter: [] - Assessment/Plan Antibiotics: [] Assessment/Plan: [] R heel osteo, gangrene with DM and PVD - MSSA pcr (+). Wound cx with serratia, enterococcus, CoNS, GPR. Will narrow abx to vanc/ceftriaxone/flagyl. Will follow
[2019-01-11 11:21] LABS: Bedside Glucose 300 mg/dL (70-110)
--- NOTE | 2019-01-11 13:25 | CASEMGMT ---
Social Work Note SW met with pt to discuss discharge plans. SW introduced self and role at [facility]. Pt is alert and orientated x3. Pt states that he would like to return home at discharge and doesn't want to go to SNF. Pt states that he has aides M,W,F for 2 hours each day, but would like more aides and more hours. SW informed pt that this worker did speak with pt's CM Shyann Harper who had informed this worker that she has been reaching out to agencies for more aides. Pt states that he really needs someone to cook for him. Pt states his aides are supposed to cook for him but they don't. SW informed Pt that this worker will relay the message to Shyann. SW informed pt that he could likely hire private sector executive to cook for him but it would be private pay and pt states that is no an option. SW provided pt with list of SNF that accept pt's insurance in the event that SNF is needed. Pt again states I prefer to discharge home. Luz Maria Gregory CAREER INFORMATION SPECIALIST, BOTTOMING ROOM INSPECTOR
[2019-01-11] MEDS: Senna/Docusate Sodium 1 Tablet 2 TABLET PO (13:32)
[2019-01-11] MEDS: metroNIDAZOLE 500 MG Tablet PO ×2 (13:32→22:03)
[2019-01-11] MEDS: Glucerna Shake 120 ML LIQUID PO ×3 (13:32→22:06)
[2019-01-11] MEDS: oxyCODONE 5 MG Tablet PO ×3 (13:42→22:10)
[2019-01-11 16:05] LABS: Bedside Glucose 218 mg/dL (70-110)
[2019-01-11] MEDS: hydrALAZINE 20 MG/ML Vial 10 MG IV (18:13)
[2019-01-11] MEDS: Atorvastatin Calcium 40 MG Tablet PO (22:05)
[2019-01-11] MEDS: MELATONIN 3 MG TABLET PO (22:10)
[2019-01-11 22:30] LABS: Bedside Glucose 319 mg/dL (70-110)
[2019-01-12] VITALS (13 sets, daily range): BP systolic 121–168; BP diastolic 65–93; PULSE 59–81; RESP 16–18; TEMP 36.2–37.4; O2SAT 95–98
--- NOTE | 2019-01-12 05:00 | EKG12_ITS ---
Test Reason : AM EKG Blood Pressure : / mmHG Vent. Rate : 064 BPM Atrial Rate : 064 BPM P-R Int : 176 ms QRS Dur : 114 ms QT Int : 442 ms P-R-T Axes : 030 025 118 degrees QTc Int : 455 ms Sinus rhythm with occasional Premature ventricular complexes T wave abnormality, consider lateral ischemia Abnormal ECG When compared with ECG of 31-DEC-2018 14:50, Premature ventricular complexes are now Present Premature atrial complexes are no longer Present Confirmed by TRAN SANCHEZ ([id number]), scientific publications editor MICHELLE MCCABE ([id number] on 01/18/2019 1:27:39 PM Referred By: Ivan [place] Confirmed By:TRAN SANCHEZ
[2019-01-12] MEDS: Morphine 2 MG/ML Syringe IV ×4 (05:20→22:19)
[2019-01-12] MEDS: 0.9% NaCl Peripheral Flush Adult/Peds IV ×5 (05:21→22:19)
[2019-01-12 05:34] LABS: Absolute Lymphocyte Count 2.03 X10^3/uL (0.83-4.51); Absolute Neutrophil Count 8.9 X10^3/uL (2.0-7.7); Basophil# 0.03 X10^3/uL; Basophil% 0.2 % (0-1); Eosinophil# 0.19 X10^3/uL; Eosinophils% 1.6 % (0-5); Hematocrit 31.9 % (40-54); Hemoglobin 10.1 g/dL (13.0-16.5); Lymphocyte # 2.03 X10^3/ul (4.0); Lymphocyte % 16.7 % (19-41); Mean Corp Hgb Conc 31.7 g/dL (32-36); Mean Corpuscular Volume 85.3 fL (80-94); Mean Platelet Vol. 10.3 fl (6.2-12.0); Monocyte% 7.4 % (0-10); NRBC Flagged by Analyzer 0 % (0-5); Neutrophil # 8.94 X10^3/uL (2.7-7.7); Neutrophil % 73.4 % (47-70); Platelet Count 338 K/mm3 (150-450); RBC Distribution Width CV 11.9 % (11.6-14.6); RBC Distribution Width SD 36.8 fl (35.1-43.9); Red Blood Count 3.74 M/mm3 (4.6-6.2); White Blood Count 12.2 K/mm3 (4.4-11.0)
[2019-01-12 05:49] LABS: International Normalized Ratio 1.3; Prothrombin Time (Protime)PT. 15.9 SECONDS (11.7-14.9)
[2019-01-12] MEDS: Clopidogrel Bisulfate 75 MG Tablet PO (05:50)
[2019-01-12] MEDS: Carvedilol 12.5 MG Tablet PO ×2 (05:50→22:15)
[2019-01-12] MEDS: Aspirin E.C. 81 MG Tablet PO (05:50)
[2019-01-12] MEDS: Lisinopril 20 MG Tablet PO (05:51)
[2019-01-12 05:54] LABS: Anion Gap 8 (5-15); BUN 14 mg/dL (7-18); BUN/Creat Ratio 13.5 RATIO (10-20); Calcium,Total 8.2 mg/dL (8.5-10.1); Chloride 103 mmol/L (98-107); Creatinine, Serum 1.04 mg/dL (0.70-1.30); EST Glomerular Filtration Rate 78 mL/min (>60); Est Glom Filt Rate - Afr Amer 94 mL/min (>60); Estimated Creatinine Clearance 76.48 ml/min; Glucose 205 mg/dL (74-106); Potassium 3.9 mmol/L (3.5-5.1); Sodium Level 138 mmol/L (136-145)
[2019-01-12] MEDS: oxyCODONE 5 MG Tablet PO (05:54)
[2019-01-12 06:11] LABS: Bedside Glucose 187 mg/dL (70-110)
--- NOTE | 2019-01-12 07:52 | NURSING ---
Pt is off unit at this time for angiogram.
--- NOTE | 2019-01-12 08:38 | PCM.OPRPT ---
Problem List (1) PAD (peripheral artery disease) Status: Chronic (2) Ulcer of right lower extremity with fat layer exposed Status: Resolved Report of Operation Date of Procedure: 01/12/19 Pre-Operative Diagnosis: Gangrene right heel with PAD Post-Operative Diagnosis: The same Surgery/Procedure Performed:: 1. Ultrasound-guided access retrograde left common femoral artery. 2. Right lower extremity angiogram with catheter placed into the past third order anterior tibial artery on the right. 3. Balloon angioplasty of the anterior tibial artery into the popliteal artery with a 3 x 3.5 x 220 balloon. Also ballooned the proximal anterior tibia with a 3 x 100 balloon. 4. Closure with Star close Type of Anesthesia:: Sedation,Conscious Description of Procedure: Patient brought to the [employer]. Underwent the appropriate timeout consent. Underwent sedation. Was prepped and draped in a sterile fashion. We did ultrasound-guided access retrograde in the left common femoral artery. Put in a 5 Tajik sheath. We got up and over the bifurcation with an Omni catheter. We gave 4000 units of heparin and then later on gave an additional 1000 units of heparin for a total of 5000. We got the catheter to the right ethanolic artery in an oblique imaging did an angiogram from there. Showed the common femoral profunda and SFA widely patent. But the wire to the distal SFA and imaged from there. Showed some mild stenosis in the popliteal but overall good flow through the entire popliteal. Showed some tibial disease. We then brought in a long 6 Tajik sheath and image from below the knee. The posterior tibial and peroneal artery were essentially occluded throughout with some collateral distally. Anterior tibial artery was patent proximally and then in the upper part of the calf appeared to have occlusions and some subtotal occlusions to about the mid calf. From there it was patent with flow all the way into the dorsalis pedis and collaterals over to the distal peroneal and some feeling back into the plantars. Using the quick cross and Glidewire got through the area the occlusion confirmed in the [place] anterior tibial. Put an 014 wire and then balloon from the mid anterior tibial through the popliteal with 3 to 3.5 x 220 balloon for over 3 minutes. The proximal part of the anterior tib had an fully inflated and we ballooned that with a 3 x 100 for over 3-1/2 minutes. Completion was markedly improved there is great flow through the entire anterior tibial filling down to the foot. He has maximized with perfusion into this area. We then removed out the sheath over 035 wire deployed a Star close with good hemostasis. Is brought to recovery stable condition. Next Sedation: This 58-year-old gentleman underwent moderate sedation given by Dr. Ryan Hurtado. He was moderate EKG blood pressure and pulse ox for over the 30 minutes of the procedure. See the EMR for the complete record. Plan: He has maximized from perfusion and should have some better flow into the area of his ostial and gangrene of the right heel. We will continue to follow as needed.
[2019-01-12] MEDS: Furosemide 40 MG Tablet PO (10:16)
[2019-01-12] MEDS: metroNIDAZOLE 500 MG Tablet PO ×3 (10:16→22:15)
[2019-01-12] MEDS: Famotidine 20 MG Tablet PO (10:16)
[2019-01-12] MEDS: Venlafaxine XR 75 MG Capsule PO (10:17)
--- NOTE | 2019-01-12 10:25 | CASEMGMT ---
LW/Medical POA forms not on file. SW spoke w/pt, let him know the forms are not on file and asked pt to bring in the forms as able. Pt states understanding. ALIZA Conway
[2019-01-12 10:36] LABS: Bedside Glucose 131 mg/dL (70-110)
[2019-01-12] MEDS: Insulin Lispro 100 UNIT/ML INSULN.PEN 15 UNIT SC ×2 (10:55→18:02)
[2019-01-12] MEDS: Gabapentin 300 MG Capsule PO ×3 (10:55→22:15)
--- NOTE | 2019-01-12 12:39 | PCM.PN.ID ---
Subjective: Foot feels better s/p procedure. No fever, no n/v/d. - Physical Exam General: Alert, Cooperative, No apparent distress Lungs: Clear to auscultation, Normal air movement Cardiovascular: Regular rate, Regular Rhythm Abdomen: Soft, Non Tender, Non-Distended Skin: Ulcer/ Wound - foot wrapped Vital Signs Temp Pulse Resp BP Pulse Ox 97.2 F L 63 18 136/69 H 97 01/12/19 11:45 01/12/19 11:45 01/12/19 11:45 01/12/19 11:45 01/12/19 11:45 Oxygen Delivery Method Room Air Weight: 98.3 kg Body Mass Index (BMI) 32.0 Intake and Output for Last 24 Hours 01/10/19 01/11/19 01/12/19 23:59 23:59 23:59 Intake Total 1518.75 / 1518.75 1127.5 / 1687.5 1285 / 1285 Output Total 2325 / 2325 1650 / 3025 1825 / 1825 Balance -806.25 / -806.25 -522.5 / -1337.5 -540 / -540 Microbiology Past 72 Hours 01/07/19 15:47 Gram Stain - Final Wound - Right Foot Wound Culture - Final Serratia marcescens Enterococcus faecalis Coag Negative Staph Gram positive christina Anaerobic Culture - Final Anaerobic cocci 01/07/19 13:00 Gram Stain - Final Wound - Heel Right Wound Culture - Final Serratia marcescens Enterococcus faecalis Anaerobic Culture - Preliminary Anaerobic cocci 01/07/19 12:30 Blood Culture - Preliminary Blood Culture (Wb) - Left Wrist No growth in 48 hours. Laboratory Tests Past 24 Hrs 01/12/19 01/12/19 01/12/19 05:02 05:02 05:02 WBC 12.2 H RBC 3.74 L Hgb 10.1 L Hct 31.9 L MCV 85.3 MCH 27.0 MCHC 31.7 L RDW Std Deviation 36.8 RDW Coeff of Geraldine 11.9 Plt Count 338 MPV 10.3 Immature Gran % (Auto) 0.700 Neut % (Auto) 73.4 H Lymph % (Auto) 16.7 L [place] % (Auto) 7.4 Eos % (Auto) 1.6 Baso % (Auto) 0.2 Absolute Neuts (auto) 8.9 H Absolute Lymphs (auto) 2.03 Nucleated RBC % 0 PT 15.9 H INR 1.3 Sodium 138 Potassium 3.9 Chloride 103 Carbon Dioxide 27.0 Anion Gap 8 BUN 14 Creatinine 1.04 Estim Creat Clear Calc 76.48 Est GFR (MDRD) Af Amer 94 Est GFR (MDRD) Non-Af 78 BUN/Creatinine Ratio 13.5 Glucose 205 H Calcium 8.2 L POC Glucose 01/12/19 01/12/19 01/11/19 10:24 05:57 21:57 POC Glucose 131 H 187 H 319 H 01/11/19 15:52 POC Glucose 218 H Medical Necessity - Tobacco Use Smoking Status: Former smoker Tobacco Use: Cigarettes Route of nutrition/ use of supplements: [] Nutritional Intake: [] IV Site: [] Brown Catheter: [] - Assessment/Plan Antibiotics: [] Assessment/Plan: [] R heel osteo, gangrene with DM and PVD - MSSA pcr (+). Wound cx with serratia, enterococcus, CoNS, GPR. 02/11 narrowed abx to vanc/ceftriaxone/flagyl. Now s/p revascularization. Plan is for picc and 6 weeks of iv vanc/ceftriaxone and po flagyl. Stop date 02/18/19. Weekly bmp, cbc, esr, and vanc trough while on abx. Some NILS this AM. Will follow
--- NOTE | 2019-01-12 12:46 | NURSING ---
BEDREST COMPLETE. TOLERATED WELL. UNABLE TO WALK D/T PT BTKA ON THE LEFT LEG AND WOUND TO RIGHT HEEL. GAVE REPORT TO JANICE MONTES.
--- NOTE | 2019-01-12 13:08 | CASEMGMT ---
JYOTI RAYGOZA NOTE: Per Dr Pringle, pt will need IV atb's @ discharge and scripts for IV Vanco, Iv Ceftriaxone, and PO Flagyl have been written by Dr Pringle. Pt has returned to room after angioplasty. JYOTI RAYGOZA to room to talk with pt. Pt made aware he will need IV atb's @ discharge. Pt states he does not have anyone at home to assist with IV administration and is agreeable to going to a SNF. Pt states he does not want to go to the following: [facility], [place], [facility], or [facility]. Pt states, otherwise, I don't care where I go. Message left for Luz Maria LAGUNAS. Salvatore CARRINGTONN RN CM
--- NOTE | 2019-01-12 13:34 | PCM.PN.HOSP ---
Patient Problems: Active and Suspected Problems (Last Reviewed 01/08/19 @ 18:04 by Ryan Hurtado MD) Osteomyelitis (Acute) Gangrene (Acute) Subjective: s/p bypass today. No leg pain. Vitals/I&O's: Vital Signs Temp Pulse Resp BP Pulse Ox 36.2 C L 62 18 148/74 H 96 01/12/19 12:44 01/12/19 12:44 01/12/19 12:44 01/12/19 12:44 01/12/19 12:44 Oxygen Delivery Method Room Air Weight: 98.3 kg Body Mass Index (BMI) 32.0 Intake and Output for Last 24 Hours 01/10/19 01/11/19 01/12/19 23:59 23:59 23:59 Intake Total 1518.75 / 1518.75 1127.5 / 1687.5 1285 / 1285 Output Total 2325 / 2325 1650 / 3025 1825 / 1825 Balance -806.25 / -806.25 -522.5 / -1337.5 -540 / -540 General: Alert, No apparent distress HEENT: Atraumatic, Normocephalic Oral: Moist Mucosa, No Gingival or Mucosal Lesions/ Ulcerations Neck: No Nodes, Trachea Midline Lungs: Clear to auscultation, Normal air movement, No rhonchi, No wheeze Cardiovascular: Regular rate, Regular Rhythm, Normal S1, Normal S2, No murmurs Abdomen: Bowel Sounds Present, Soft, Non Tender, Non-Distended Extremities: Peripheral Pulses Normal Psych/Mental Status: Normal Affect, Appropriate Microbiology Past 72 Hours 01/07/19 15:47 Wound - Right Foot Gram Stain - Final 01/07/19 15:47 Wound - Right Foot Wound Culture - Final Serratia marcescens Enterococcus faecalis Coag Negative Staph Gram positive christina 01/07/19 15:47 Wound - Right Foot Anaerobic Culture - Final Anaerobic cocci 01/07/19 13:00 Wound - Heel Right Gram Stain - Final 01/07/19 13:00 Wound - Heel Right Wound Culture - Final Serratia marcescens Enterococcus faecalis 01/07/19 13:00 Wound - Heel Right Anaerobic Culture - Preliminary Anaerobic cocci 01/07/19 12:30 Blood Culture (Wb) - Left Wrist Blood Culture - Preliminary No growth in 48 hours. Laboratory Results 01/11/19 15:52: POC Glucose 218 H 01/11/19 21:57: POC Glucose 319 H 01/12/19 05:02: WBC 12.2 H, RBC 3.74 L, Hgb 10.1 L, Hct 31.9 L, MCV 85.3, MCH 27.0, MCHC 31.7 L, RDW Std Deviation 36.8, RDW Coeff of Geraldine 11.9, Plt Count 338, MPV 10.3, Immature Gran % (Auto) 0.700, Neut % (Auto) 73.4 H, Lymph % (Auto) 16.7 L, [place] % (Auto) 7.4, Eos % (Auto) 1.6, Baso % (Auto) 0.2, Absolute Neuts (auto) 8.9 H, Absolute Lymphs (auto) 2.03, Nucleated RBC % 0 01/12/19 05:02: PT 15.9 H, INR 1.3 01/12/19 05:02: Sodium 138, Potassium 3.9, Chloride 103, Carbon Dioxide 27.0, Anion Gap 8, BUN 14, Creatinine 1.04, Estim Creat Clear Calc 76.48, Est GFR (MDRD) Af Amer 94, Est GFR (MDRD) Non-Af 78, BUN/Creatinine Ratio 13.5, Glucose 205 H, Calcium 8.2 L 01/12/19 05:57: POC Glucose 187 H 01/12/19 10:24: POC Glucose 131 H Current Medications Acetaminophen (Tylenol) 650 mg PO Q6H PRN PRN PRN Reason: Mild Pain (scale 0-3)/T>100.7 Al Hydroxide/Mg Hydroxide (Mylanta Ii) 30 ml PO Q6H PRN PRN PRN Reason: Gastric Burning Aspirin (Ecotrin) 81 mg PO DAILYCM [facility] Last Admin: 01/12/19 05:50 Dose: 81 mg Documented by: Atorvastatin Calcium (Lipitor) 40 mg PO DAILY@2200 [facility] Last Admin: 01/11/19 22:05 Dose: 40 mg Documented by: Carvedilol (Coreg) 12.5 mg PO BID [facility] Last Admin: 01/12/19 05:50 Dose: 12.5 mg Documented by: Clopidogrel Bisulfate (Plavix) 75 mg PO DAILY [facility] Last Admin: 01/12/19 05:50 Dose: 75 mg Documented by: Dextrose (D50w Syringe) 0 gm IV X1 PRN; Protocol PRN Reason: Hypoglycemia Doxazosin Mesylate (Cardura) 2 mg PO BID [facility] Last Admin: 01/11/19 22:07 Dose: 2 mg Documented by: Enoxaparin Sodium (Lovenox) 40 mg SC DAILY@1000 [facility] Last Admin: 01/12/19 09:10 Dose: Not Given Documented by: Famotidine (Pepcid) 20 mg PO DAILY [facility] Last Admin: 01/12/19 10:16 Dose: 20 mg Documented by: Furosemide (Lasix) 40 mg PO DAILY [facility] Last Admin: 01/12/19 10:16 Dose: 40 mg Documented by: Gabapentin (Neurontin) 300 mg PO TID [facility] Last Admin: 01/12/19 10:55 Dose: 300 mg Documented by: Glucagon () 1 mg IM .X1 PRN PRN Reason: Hypoglycemia Guaifenesin (Robitussin) 20 ml PO Q4H PRN PRN PRN Reason: COUGH Hydralazine HCl (Apresoline Iv) 10 mg IV Q4H PRN PRN PRN Reason: SBP > 160 Last Admin: 01/11/19 18:13 Dose: 10 mg Documented by: Vancomycin IV Pharmacy to Dose (1 ea/ Sodium Chloride) 500 mls @ 250 mls/hr IV X1 PRN; Protocol PRN Reason: Rx to Dose Vancomycin HCl 750 mg/ Sodium (Chloride) 265 mls @ 250 mls/hr IV Q12H [facility] Last Infusion: 01/12/19 06:46 Dose: Infused Documented by: Ceftriaxone Sodium 2 gm/ (Sodium Chloride) 50 mls @ 100 mls/hr IV Q24 [facility] Last Infusion: 01/12/19 10:55 Dose: Infused Documented by: Insulin Glargine (Lantus (Bkc)) 35 units SC BID [facility] Insulin Human Lispro (Humalog Kwikpen (Bkc)) 0 unit SC ACHS [facility]; Protocol Last Admin: 01/12/19 12:01 Dose: Not Given Documented by: Insulin Human Lispro (Humalog Kwikpen (Bkc)) 15 unit SC 0800,1200,1700 [facility] Last Admin: 01/12/19 12:02 Dose: Not Given Documented by: Lisinopril (Zestril) 20 mg PO DAILY [facility] Last Admin: 01/12/19 05:51 Dose: 20 mg Documented by: Magnesium Hydroxide (Milk Of Magnesia) 30 ml PO DAILY PRN PRN PRN Reason: Constipation Last Admin: 01/08/19 21:23 Dose: 30 ml Documented by: Meclizine HCl (Antivert) 25 mg PO TID PRN PRN PRN Reason: dizziness Melatonin (Melatonin) 3 mg PO QHS PRN PRN PRN Reason: INSOMNIA Last Admin: 01/11/19 22:10 Dose: 3 mg Documented by: Metronidazole (Flagyl) 500 mg PO TID [facility] Last Admin: 01/12/19 10:16 Dose: 500 mg Documented by: Morphine Sulfate () 2 - 4 mg IV Q3H PRN PRN PRN Reason: Severe Pain (pain scale 6-10) Last Admin: 01/12/19 05:20 Dose: 2 mg Documented by: Morphine Sulfate () 2 - 4 mg IV Q3H PRN PRN PRN Reason: Severe Pain (pain scale 6-10) Nutritional Formula (Lactose Free) (Glucerna Shake) 120 ml PO 4X/DAY [facility] Last Admin: 01/12/19 10:18 Dose: Not Given Documented by: Ondansetron HCl (Zofran) 4 mg IV Q8H PRN PRN PRN Reason: Nausea Oxycodone HCl (Oxyir) 5 mg PO Q4H PRN PRN PRN Reason: Moderate Pain (pain scale 4-5) Last Admin: 01/12/19 05:54 Dose: 5 mg Documented by: Potassium Chloride (K-Dur) 20 meq PO BIDCM [facility] Last Admin: 01/12/19 10:17 Dose: 20 meq Documented by: Senna/Docusate Sodium (Senokot-S, Jacquelyn-Colace) 2 tablet PO DAILY PRN PRN PRN Reason: CONSTIPATION Last Admin: 01/11/19 13:32 Dose: 2 tablet Documented by: Sodium Chloride () 10 - 40 ml IV UD PRN PRN Reason: SALINE FLUSH Last Admin: 01/12/19 05:21 Dose: 10 ml Documented by: Venlafaxine HCl (Effexor Xr) 75 mg PO DAILY [facility] Last Admin: 01/12/19 10:17 Dose: 75 mg Documented by: Medical Necessity - Tobacco Use Smoking Status: Former smoker Tobacco Use: Cigarettes Assessment/Plan All Active Problems (Last Reviewed 01/08/19 @ 18:04 by Ryan Hurtado MD) Osteomyelitis (Acute) Gangrene (Acute) Chronic ulcer of left foot with necrosis of muscle (Resolved) Ulcer of right foot with fat layer exposed (Acute) Puncture wound (Resolved) Lymphangitis, acute, lower leg (Resolved) Stroke (Resolved) Ulcer of right lower extremity with fat layer exposed (Resolved) MRSA (methicillin resistant staph aureus) culture positive (Resolved) Malnutrition (Resolved) Cellulitis of right leg (Acute) 1. Infected Right diabetic foot noted osteomyelitis of calcaneus. occluded posterior tibial and peroneal. mild stenosis in SFA and anterior tibial artery continue abx and supportive mgmt podiatry following and their plan contingent on reperfusion post-angioplasty (wound care v debridement) polymicrobial: Serratia, Enteroccus, ART CLASS MODEL, GPR per ID: plan for 6 weeks of IV vanc, CTX and PO metro 2. Right calcaneal osteomyelitis as above 3. PAD angioplasty of anterior tibial artery into the popliteal artery with a 3 x 3.5 x 220 balloon. Also ballooned the proximal anterior tibia with a 3 x 100 balloon. on ASA and clopidogrel and atorvastatin 4. DM2 uncontrolled--see labs some improvement already on 60 basal QHS, change to 35 BID, starting tonight. continue with prandial insulin 15 w meals. 5. CAD stable continue meds 6. VTE prophylaxis: LMWH. Discharge planning Code Visit Inpatient E&M: 55062 Subs Hosp L2
--- NOTE | 2019-01-12 13:39 | PCM.PROGNOTE ---
Patient Problems: Active and Suspected Problems (Last Reviewed 01/08/19 @ 18:04 by Ryan Hurtado MD) Osteomyelitis (Acute) Gangrene (Acute) Subjective: This 58-year-old male with diabetes and peripheral vascular disease was seen bedside for right heel gangrene secondary to severe peripheral vascular disease. He denies current chills, fever, nausea, vomiting. He had vascular surgery intervention this morning with improved perfusion to the heel. He is resting in the progressive care unit at this time during his immediate postoperative timeframe. - Physical Exam General: Alert, Oriented x3, Cooperative Extremities: No cyanosis - To any digits of the right foot, Capillary Refill Less than 3 Seconds, No Calf Tenderness - Negative Castillo and Brooks sign right lower extremity, Diminished Peripheral Pulses, Edema, - - Left lower extremity amputation Skin: Ulcer/ Wound - Full-thickness eschar to posterior and medial heel which is well adhered with unknown depth. There is no probe to bone. The erythema adjacent to the site has resolved and there is no longer a lymphangitic streak. There is no purulence or odor or bogginess or fluctuance, - - The peripheral skin is atrophic Musculoskeletal: No Tenderness to Palpation of Joints or Extremities, Muscle Wasting Neurological: - - Lack of normal epicritic sensation Psych/Mental Status: Normal Affect, Appropriate Vital Signs Temp Pulse Resp BP Pulse Ox 97.2 F L 62 18 148/74 H 96 01/12/19 12:44 01/12/19 12:44 01/12/19 12:44 01/12/19 12:44 01/12/19 12:44 Oxygen Delivery Method Room Air Weight: 98.3 kg Body Mass Index (BMI) 32.0 Intake and Output for Last 24 Hours 01/10/19 01/11/19 01/12/19 23:59 23:59 23:59 Intake Total 1518.75 / 1518.75 1127.5 / 1687.5 1285 / 1285 Output Total 2325 / 2325 1650 / 3025 1825 / 1825 Balance -806.25 / -806.25 -522.5 / -1337.5 -540 / -540 Microbiology Past 72 Hours 01/07/19 15:47 Gram Stain - Final Wound - Right Foot Wound Culture - Final Serratia marcescens Enterococcus faecalis Coag Negative Staph Gram positive christina Anaerobic Culture - Final Anaerobic cocci 01/07/19 13:00 Gram Stain - Final Wound - Heel Right Wound Culture - Final Serratia marcescens Enterococcus faecalis Anaerobic Culture - Preliminary Anaerobic cocci 01/07/19 12:30 Blood Culture - Preliminary Blood Culture (Wb) - Left Wrist No growth in 48 hours. Laboratory Tests Past 24 Hrs 01/12/19 01/12/19 01/12/19 05:02 05:02 05:02 WBC 12.2 H RBC 3.74 L Hgb 10.1 L Hct 31.9 L MCV 85.3 MCH 27.0 MCHC 31.7 L RDW Std Deviation 36.8 RDW Coeff of Geraldine 11.9 Plt Count 338 MPV 10.3 Immature Gran % (Auto) 0.700 Neut % (Auto) 73.4 H Lymph % (Auto) 16.7 L [place] % (Auto) 7.4 Eos % (Auto) 1.6 Baso % (Auto) 0.2 Absolute Neuts (auto) 8.9 H Absolute Lymphs (auto) 2.03 Nucleated RBC % 0 PT 15.9 H INR 1.3 Sodium 138 Potassium 3.9 Chloride 103 Carbon Dioxide 27.0 Anion Gap 8 BUN 14 Creatinine 1.04 Estim Creat Clear Calc 76.48 Est GFR (MDRD) Af Amer 94 Est GFR (MDRD) Non-Af 78 BUN/Creatinine Ratio 13.5 Glucose 205 H Calcium 8.2 L POC Glucose 01/12/19 01/12/19 01/11/19 10:24 05:57 21:57 POC Glucose 131 H 187 H 319 H 01/11/19 15:52 POC Glucose 218 H Medical Necessity - Tobacco Use Smoking Status: Former smoker Tobacco Use: Cigarettes Assessment/Plan All Active Problems (Last Reviewed 01/08/19 @ 18:04 by Ryan Hurtado MD) Osteomyelitis (Acute) Gangrene (Acute) Chronic ulcer of left foot with necrosis of muscle (Resolved) Ulcer of right foot with fat layer exposed (Acute) Puncture wound (Resolved) Lymphangitis, acute, lower leg (Resolved) Stroke (Resolved) Ulcer of right lower extremity with fat layer exposed (Resolved) MRSA (methicillin resistant staph aureus) culture positive (Resolved) Malnutrition (Resolved) Cellulitis of right leg (Acute) -Severe peripheral arterial disease right lower extremity with heel ulcer/necrosis gangrene; now postoperative right lower extremity angiogram with catheter placement of anterior tibial artery, balloon angioplasty of anterior tibial artery into the popliteal artery and also to the proximal anterior tibia performed this morning with Dr. Hurtado -Cellulitis right heel, resolved -Osteomyelitis right calcaneus -Diabetes, peripheral neuropathy -Left BKA -Other comorbidities I reviewed his case. He is afebrile and his vital signs are stable. WBC at 12.2. He had a successful vascular surgery procedure performed this morning. His ulcer site was evaluated and is a dry gangrenous cap to the heel with unknown depth. The dressing was reapplied. I do recommend surgical debridement to obtain a healthy margin. This is tentatively scheduled for tomorrow at 14:45. A bone biopsy will also be considered pending intraoperative findings. This plan was communicated with Dr. Blackburn. It is okay for him to continue on anticoagulation medication during the podiatric surgery. The indication, planned procedure, possible benefits, risk, complications, anticipated healing time is were discussed in detail with patient. He understands and elects to proceed with surgery at this time. No guarantees were made. He understands the following risks and complications include but are not limited to the following: Pain, swelling, scarring, continued delayed or nonhealing, continued or returned infection, need for further surgery, blood clot, allergic reaction, loss of limb, function, life, or continued gangrenous changes to the limb. Subsequent follow-up in outpatient wound care center will be scheduled. The informed surgical consent will be signed. I answered all of his questions. N.p.o. and other preoperative orders will be entered electronically. Medical optimization per primary team is greatly appreciated. Cultures have been obtained and demonstrate multi-organism growth (Serratia, enterococcus,CoNS, GPR). MSSA pcr positive was noted. To continue with antibiotic therapy (vancomycin, ceftriaxone, Flagyl) until 02/18/2019. Dr. Dent's infectious disease management is appreciated No weightbearing right heel. Keep right heel offloaded at all times. Podiatry will continue to follow. Please not hesitate to call for any questions. Beulah Schultz DPM, [facility] [phone]
[2019-01-12] MEDS: Glucerna Shake 120 ML LIQUID PO ×2 (14:09→18:06)
[2019-01-12] MEDS: Doxazosin 1 MG Tablet 2 MG PO ×2 (14:14→22:15)
--- NOTE | 2019-01-12 15:07 | CASEMGMT ---
Addendum entered by Luz Maria Gregory 01/12/19 15:59: SW received message from Gem at [facility] stating she will have a bed for pt and will submit for pre-cert. Pt updated. Plan: [facility] pending pre-cert Addendum entered by Luz Maria Gregory 01/12/19 15:43: SW received call from Gem at [facility] stating she is able to accept pt but has to check on bed availability and then give this worker a call back. Original Note: Social Work Note SW received update that pt will be discharged on IV antibiotics and is agreeable to SNF. Per notes, pt does NOT want to go to [facility], [facility], or [facility]. SW in to speak with pt to discuss discharge plans. SW informed pt that the only facilities left that accept pt's insurance are [facility], [facility], [facility], and [facility]. SW informed pt that currently [facility] doesn't have any beds available. Pt is agreeable to referral being sent to [facility]. SW explained referral process and that pt will need pre-cert. Pt states understanding. SW placed a call to Gem at [facility] and provided referral. SW faxed referral. Plan: [facility] pending acceptance and pre-cert Luz Maria Gregory BIOLOGY TUTOR, HOLIDAY DETECTOR OPERATOR
[2019-01-12 16:31] LABS: Bedside Glucose 147 mg/dL (70-110)
[2019-01-12] MEDS: Senna/Docusate Sodium 1 Tablet 2 TABLET PO (17:59)
[2019-01-12] MEDS: Mag Hydrox/Al Hydrox/Simeth 30 ML UDC PO (20:17)
[2019-01-12 20:31] LABS: Bedside Glucose 165 mg/dL (70-110)
[2019-01-12] MEDS: MELATONIN 3 MG TABLET PO (22:13)
[2019-01-12] MEDS: Atorvastatin Calcium 40 MG Tablet PO (22:14)
[2019-01-12 22:36] LABS: Bedside Glucose 127 mg/dL (70-110)
[2019-01-13] VITALS (11 sets, daily range): BP systolic 103–162; BP diastolic 60–91; PULSE 67–84; RESP 14–18; TEMP 35.7–37.3; O2SAT 90–100; BMI 32.0
--- NOTE | 2019-01-13 | BON_PTH ---
PATIENT: ANGEL GUEVARA LOC: MS3 U#:[id number] AGE/SX: 58/M ROOM: [facility] RE01/07/[address]: Dr. Reggie Blackburn DO : 1960 BED: 1 DIS: 01/14/2019 SPEC #: [id number] RECD: 01/13/19 16:26 STATUS: ELINA REQ #: [id number] NADINE: 01/13/19 00:[address]: Beulah Schultz DEPT: SURGICAL PATHOLOGY RECD BY: Raj Marin ENTERED: 01/14/19 09:14 SP TYPE: Bone OTHR DR: MD Dr. Reynaldo Banerjee DO Dr. David Kittoe, MD Dr. Eric Jopperi, DO Dr. Jeanna Fascione, DPM Dr. Jean Pierre Pringle MD Tissues: Bone of foot, NOS Procedures: Decalcification bone/plaque Surgery Specimen Level IV Comments: @ Ordering doctor for DEC edited from to DR.JFASCI Sandra ALVAREZ at 01/14/19 1249 @ Ordering doctor for SUIII edited from to @ by KIM at 01/14/19 124Ashlyn @ Submitting doctor edited from to @ kristin ALVAREZ at 01/14/19 1249 HEADER OPERATION: Right heel soft tissue and bone debridement with bone biopsy PRE-OP DIAGNOSIS: Ulcer right heel, osteomyelitis TISSUE SUBMITTED: Right heel calcaneal bone biopsy MICROSCOPIC DIAGNOSIS Right heel calcaneal bone, biopsy: A piece of bone with reactive changes, negative for acute osteomyelitis. TIKI:teresa 01/19/19 COMMENT Case has been reviewed in consultation with Dr. Hurley who concurs with the above diagnosis. IDC:AM MICROSCOPIC DESCRIPTION Slides are reviewed. GROSS DESCRIPTION Received in fixative is one container labeled with the patient's name and designated right calcaneus bone biopsy. The specimen consists of a piece of hopkins bone measuring 0.5 x 0.3 x 0.2 cm. The entire specimen is submitted in one cassette after decalcification. / TIKI:teresa 01/14/19 TC:5 CPT: 00228, 58092
[2019-01-13] MEDS: 0.9% NaCl Peripheral Flush Adult/Peds IV ×2 (04:48→06:25)
[2019-01-13 04:51] LABS: Vancomycin, Trough Level 13.3 ug/mL (5.0-15.0)
--- NOTE | 2019-01-13 05:08 | PCM.RX.CS ---
Consult Pharmacy has been consulted to manage selected antiobiotic: Vancomycin Type of Consult: Follow-up Suspected Infection: Skin/Soft tissue Prior Doses of Antibiotics Received/Current Regimen: Medications Vancomycin HCl 750 mg/ Sodium (Chloride) 265 mls @ 250 mls/hr IV Q12H ESTELA Last Admin: 01/13/19 04:47 Dose: 250 mls/hr Labs: Sodium 138 mmol/L (136-145) 01/12/19 05:02 Potassium 3.9 mmol/L (3.5-5.1) 01/12/19 05:02 Chloride 103 mmol/L (98-107) 01/12/19 05:02 Carbon Dioxide 27.0 mmol/L (21.0-32.0) 01/12/19 05:02 Anion Gap 8 (5-15) 01/12/19 05:02 BUN 14 mg/dL (7-18) 01/12/19 05:02 Creatinine 1.04 mg/dL (0.70-1.30) 01/12/19 05:02 Est GFR (MDRD) Af Amer 94 mL/min (>60) 01/12/19 05:02 Est GFR (MDRD) Non-Af 78 mL/min (>60) 01/12/19 05:02 BUN/Creatinine Ratio 13.5 RATIO (10-20) 01/12/19 05:02 Glucose 205 mg/dL (74-106) H 01/12/19 05:02 Vancomycin Trough 13.3 ug/mL (5.0-15.0) 01/13/19 04:08 Microbiology: Microbiology 01/07/19 12:30 Blood Culture (Wb) - Left Wrist Blood Culture - Final No growth in 5 days. 01/07/19 13:00 Wound - Heel Right Gram Stain - Final 01/07/19 13:00 Wound - Heel Right Wound Culture - Final Serratia marcescens Enterococcus faecalis 01/07/19 13:00 Wound - Heel Right Anaerobic Culture - Preliminary Gram negative cocco bacillus Propionibacterium granulosum Anaerobic cocci 01/07/19 15:47 Wound - Right Foot Gram Stain - Final 01/07/19 15:47 Wound - Right Foot Wound Culture - Final Serratia marcescens Enterococcus faecalis Coag Negative Staph Gram positive christina 01/07/19 15:47 Wound - Right Foot Anaerobic Culture - Final Anaerobic cocci Weight used for dosin.3 kg Estimated Creatinine Clearance: 76 Pharmacy Plan for Drug Dosing: Trough level of 13.3 was within target range of 10-15. Will continue current vancomycin dosing and re-draw trough in 4 days. Pharmacy Service will continue to monitor and adjust dosing as required. Follow-Up Labs: Trough Vancomycin Labs to be done on [date and time ordered]: 01/16/19 @1620
[2019-01-13] MEDS: Morphine 2 MG/ML Syringe IV ×3 (06:23→21:54)
[2019-01-13] MEDS: Gabapentin 300 MG Capsule PO ×2 (06:30→22:00)
[2019-01-13] MEDS: metroNIDAZOLE 500 MG Tablet PO ×2 (06:30→22:08)
[2019-01-13 06:45] LABS: Bedside Glucose 124 mg/dL (70-110)
[2019-01-13 07:45] LABS: Hemoglobin A1c 12.3 % (4.2-6.3)
--- NOTE | 2019-01-13 08:54 | PN_ITS ---
Patient Problems: Active and Suspected Problems (Last Reviewed 01/08/19 @ 18:04 by Ryan Hurtado MD) Osteomyelitis (Acute) Gangrene (Acute) Subjective: Feels well. Some pain in foot, but not severe. Vitals/I&O's: Vital Signs Temp Pulse Resp BP Pulse Ox 36.9 C 69 16 134/76 H 100 01/13/19 08:13 01/13/19 08:13 01/13/19 08:13 01/13/19 08:13 01/13/19 08:13 Oxygen Delivery Method Room Air Weight: 98.3 kg Body Mass Index (BMI) 32.0 Intake and Output for Last 24 Hours 01/11/19 01/12/19 01/13/19 23:59 23:59 23:59 Intake Total 1127.5 / 1687.5 1900 / 2100 665 / 665 Output Total 1650 / 3025 2475 / 2475 450 / 450 Balance -522.5 / -1337.5 -575 / -375 215 / 215 General: Alert, No apparent distress HEENT: Atraumatic, Normocephalic Oral: Moist Mucosa, No Gingival or Mucosal Lesions/ Ulcerations Neck: No Nodes, Thyroid Normal Size and Texture Lungs: Clear to auscultation, Normal air movement, No rhonchi, No wheeze Cardiovascular: Regular rate, Regular Rhythm, Normal S1, Normal S2, No murmurs Abdomen: Bowel Sounds Present, Soft, Non Tender, Non-Distended, No Hepato- splenomegaly Extremities: No edema, No Calf Tenderness, - - right foot wrapped--did not remove. left stump intact. Skin: No rashes, No breakdown Musculoskeletal: No Tenderness to Palpation of Joints or Extremities, No Muscle Wasting Microbiology Past 72 Hours 01/07/19 13:00 Wound - Heel Right Gram Stain - Final 01/07/19 13:00 Wound - Heel Right Wound Culture - Final Serratia marcescens Enterococcus faecalis 01/07/19 13:00 Wound - Heel Right Anaerobic Culture - Preliminary Gram negative cocco bacillus Propionibacterium granulosum Anaerobic cocci 01/07/19 12:30 Blood Culture (Wb) - Left Wrist Blood Culture - Final No growth in 5 days. 01/07/19 15:47 Wound - Right Foot Gram Stain - Final 01/07/19 15:47 Wound - Right Foot Wound Culture - Final Serratia marcescens Enterococcus faecalis Coag Negative Staph Gram positive christina 01/07/19 15:47 Wound - Right Foot Anaerobic Culture - Final Anaerobic cocci Laboratory Results 01/12/19 10:24: POC Glucose 131 H 01/12/19 16:23: POC Glucose 147 H 01/12/19 20:22: POC Glucose 165 H 01/12/19 22:29: POC Glucose 127 H 01/13/19 04:08: Vancomycin Trough 13.3 01/13/19 04:08: Hemoglobin A1c 12.3 H 01/13/19 06:40: POC Glucose 124 H Current Medications Acetaminophen (Tylenol) 650 mg PO Q6H PRN PRN PRN Reason: Mild Pain (scale 0-3)/T>100.7 Al Hydroxide/Mg Hydroxide (Mylanta Ii) 30 ml PO Q6H PRN PRN PRN Reason: Gastric Burning Last Admin: 01/12/19 20:17 Dose: 30 ml Documented by: [facility]cot[facility]) [facility] Last Admin: 01/13/19 08:19 Dose: Not Given Documented by: Atorvastatin Calcium (Lipitor) 40 mg PO DAILY@2200 [facility] Last Admin: 01/12/19 22:14 Dose: 40 mg Documented by: Carvedilol (Coreg) 12.5 mg PO BID [facility] Last Admin: 01/12/19 22:15 Dose: 12.5 mg Documented by: Clopidogrel Bisulfate (Plavix) 75 mg PO DAILY [facility] Last Admin: 01/12/19 05:50 Dose: 75 mg Documented by: Dextrose (D50w Syringe) 0 gm IV X1 PRN; Protocol PRN Reason: Hypoglycemia Doxazosin Mesylate (Cardura) 2 mg PO BID [facility] Last Admin: 01/12/19 22:15 Dose: 2 mg Documented by: Enoxaparin Sodium (Lovenox) 40 mg SC DAILY@1000 [facility] Last Admin: 01/12/19 09:10 Dose: Not Given Documented by: Famotidine (Pepcid) 20 mg PO DAILY [facility] Last Admin: 01/12/19 10:16 Dose: 20 mg Documented by: Furosemide (Lasix) 40 mg PO DAILY [facility] Last Admin: 01/12/19 10:16 Dose: 40 mg Documented by: Gabapentin (Neurontin) 300 mg PO TID [facility] Last Admin: 01/13/19 06:30 Dose: 300 mg Documented by: Glucagon () 1 mg IM .X1 PRN PRN Reason: Hypoglycemia Guaifenesin (Robitussin) 20 ml PO Q4H PRN PRN PRN Reason: COUGH Hydralazine HCl (Apresoline Iv) 10 mg IV Q4H PRN PRN PRN Reason: SBP > 160 Last Admin: 01/11/19 18:13 Dose: 10 mg Documented by: Vancomycin IV Pharmacy to Dose (1 ea/ Sodium Chloride) 500 mls @ 250 mls/hr IV X1 PRN; Protocol PRN Reason: Rx to Dose Vancomycin HCl 750 mg/ Sodium (Chloride) 265 mls @ 250 mls/hr IV Q12H [facility] Last Infusion: 01/13/19 06:23 Dose: Infused Documented by: Ceftriaxone Sodium 2 gm/ (Sodium Chloride) 50 mls @ 100 mls/hr IV Q24 [facility] Last Infusion: 01/12/19 10:55 Dose: Infused Documented by: Insulin Glargine (Lantus (Bkc)) 35 units SC BID [facility] Last Admin: 01/12/19 22:30 Dose: Not Given Documented by: Insulin Glargine (Lantus (Bkc)) 20 units SC X1 ONE Stop: 01/13/19 08:53 Insulin Human Lispro (Humalog Kwikpen (Bkc)) 0 unit SC ACHS [facility]; Protocol Last Admin: 01/13/19 06:40 Dose: Not Given Documented by: Insulin Human Lispro (Humalog Kwikpen (Bkc)) 15 unit SC 0800,1200,1700 [facility] Last Admin: 01/12/19 18:02 Dose: 15 units Documented by: Lisinopril (Zestril) 20 mg PO DAILY [facility] Last Admin: 01/12/19 05:51 Dose: 20 mg Documented by: Magnesium Hydroxide (Milk Of Magnesia) 30 ml PO DAILY PRN PRN PRN Reason: Constipation Last Admin: 01/08/19 21:23 Dose: 30 ml Documented by: Meclizine HCl (Antivert) 25 mg PO TID PRN PRN PRN Reason: dizziness Melatonin (Melatonin) 3 mg PO QHS PRN PRN PRN Reason: INSOMNIA Last Admin: 01/12/19 22:13 Dose: 3 mg Documented by: Metronidazole (Flagyl) 500 mg PO TID [facility] Last Admin: 01/13/19 06:30 Dose: 500 mg Documented by: Morphine Sulfate () 2 - 4 mg IV Q3H PRN PRN PRN Reason: Severe Pain (pain scale 6-10) Last Admin: 01/13/19 06:23 Dose: 2 mg Documented by: Morphine Sulfate () 2 - 4 mg IV Q3H PRN PRN PRN Reason: Severe Pain (pain scale 6-10) Nutritional Formula (Lactose Free) (Glucerna Shake) 120 ml PO 4X/DAY [facility] Last Admin: 01/12/19 22:24 Dose: Not Given Documented by: Ondansetron HCl (Zofran) 4 mg IV Q8H PRN PRN PRN Reason: Nausea Oxycodone HCl (Oxyir) 5 mg PO Q4H PRN PRN PRN Reason: Moderate Pain (pain scale 4-5) Last Admin: 01/12/19 05:54 Dose: 5 mg Documented by: Potassium Chloride (K-Dur) [facility] Last Admin: 01/12/19 18:03 Dose: 20 meq Documented by: Senna/Docusate Sodium (Senokot-S, Jacquelyn-Colace) 2 tablet PO DAILY PRN PRN PRN Reason: CONSTIPATION Last Admin: 01/12/19 17:59 Dose: 2 tablet Documented by: Sodium Chloride () 10 - 40 ml IV UD PRN PRN Reason: SALINE FLUSH Last Admin: 01/13/19 06:25 Dose: 10 ml Documented by: Venlafaxine HCl (Effexor Xr) 75 mg PO DAILY [facility] Last Admin: 01/12/19 10:17 Dose: 75 mg Documented by: Medical Necessity - Tobacco Use Smoking Status: Former smoker Tobacco Use: Cigarettes Assessment/Plan All Active Problems (Last Reviewed 01/08/19 @ 18:04 by Ryan Hurtado MD) Osteomyelitis (Acute) Gangrene (Acute) Chronic ulcer of left foot with necrosis of muscle (Resolved) Ulcer of right foot with fat layer exposed (Acute) Puncture wound (Resolved) Lymphangitis, acute, lower leg (Resolved) Stroke (Resolved) Ulcer of right lower extremity with fat layer exposed (Resolved) MRSA (methicillin resistant staph aureus) culture positive (Resolved) Malnutrition (Resolved) Cellulitis of right leg (Acute) 1. Infected Right diabetic foot * noted osteomyelitis of calcaneus. * occluded posterior tibial and peroneal. mild stenosis in SFA and anterior tibial artery * continue abx and supportive mgmt * podiatry following and their plan contingent on reperfusion post-angioplasty (wound care v debridement) * polymicrobial: Serratia, Enteroccus, SYSTEM AUDITOR, GPR * per ID: plan for 6 weeks of IV vanc, CTX and PO metro * to OR today for further debridement 2. Right calcaneal osteomyelitis * as above 3. PAD * angioplasty of anterior tibial artery into the popliteal artery with a 3 x 3.5 x 220 balloon. Also ballooned the proximal anterior tibia with a 3 x 100 balloon. * on ASA and clopidogrel and atorvastatin 4. DM2 * uncontrolled--see labs * A1c 12.3 * some improvement * already on 60 basal QHS, change to 35 BID, starting 01/12. * continue with prandial insulin 15 w meals. * will only give 20 of lantus this AM for surgery this afternoon. 5. CAD * stable * continue meds 6. VTE prophylaxis: LMWH. Discharge planning, hopefully next 24-48h. Code Visit Inpatient E&M: 72546 Subs Hosp L2
[2019-01-13] MEDS: Insulin Lispro 100 UNIT/ML INSULN.PEN 15 UNIT SC ×2 (09:52→18:02)
[2019-01-13] MEDS: Doxazosin 1 MG Tablet 2 MG PO ×2 (09:58→21:59)
[2019-01-13] MEDS: Carvedilol 12.5 MG Tablet PO ×2 (09:59→22:00)
[2019-01-13] MEDS: Venlafaxine XR 75 MG Capsule PO (09:59)
[2019-01-13] MEDS: Furosemide 40 MG Tablet PO (09:59)
[2019-01-13] MEDS: Famotidine 20 MG Tablet PO (10:00)
[2019-01-13] MEDS: Lisinopril 20 MG Tablet PO (10:00)
[2019-01-13] MEDS: Ondansetron 4 MG/2 ML Vial IV (10:21)
--- NOTE | 2019-01-13 10:26 | NURSING ---
Pt. reports feeling heartburn and states that only Nexium helps relieve this discomfort. Relayed this information to primary RN Amber.
--- NOTE | 2019-01-13 10:29 | NURSING ---
Addendum entered by Jg Riojas 01/13/19 10:31: Aspirin and Lovenox scheduled for 0800. Plavix scheduled for 1000 also held. Original Note: Primary RN Amber held aspirin and Lovenox.
[2019-01-13] MEDS: Calcium Carbonate 500 MG Tablet PO (11:15)
[2019-01-13 11:25] LABS: Bedside Glucose 216 mg/dL (70-110)
--- NOTE | 2019-01-13 13:52 | NURSING ---
0930 am Rafael Clark RN reports Plavix, Lovenox, ASA and AM Humalog and Lantus to be held until Physician contacted to clarify if meds need to be held for procedure this afternoon.
--- NOTE | 2019-01-13 13:54 | NURSING ---
satish Clark, Primary RN reports she clarified with Physician meds to be held-new orders placed
--- NOTE | 2019-01-13 13:55 | CASEMGMT ---
Addendum entered by Luz Maria Gregory 01/13/19 14:53: OT evaluations are available. SW placed a call to Maddy with TCU and left her a message informing her OT evaluations are available and to submit for pre-cert. Original Note: Social Work Note SW received message that pt is requesting to speak to this worker. SW met with pt. Pt states that he spoke with a friend and his friend told pt that [facility] is filled with demented patients that yell at night and he doesn't want to go there. Pt states he would like to stay at [facility]. SW explained that with pt's insurance because it is a dual plan and has medicaid pt will only be able to stay at [facility] for 20 days. SW informed pt that his IV antibiotics stop date is 02/18/2019 which is longer than 20 days. Pt states that he will either stop his antibiotics are go to a different SNF for the remainder of his antibiotics. Pt states he would like this worker to stop referral for [facility] and [facility] BEBO placed a call to Maddy with TCU and provided referral. Maddy states she will need OT notes for pt before she can submit for pre-cert. BEBO placed a call to Mady with OT and asked Mady to evaluate pt before surgery. SW informed pt that [facility] is able to accept pt but pt will need to work with OT before pre-cert can be submitted. Pt states understanding. Plan: TCU pending pre-cert Luz Maria Gregory PUBLIC RELATIONS SPECIALIST, HEALTH INFORMATION TECHNOLOGIST
--- NOTE | 2019-01-13 14:34 | NURSING ---
called report to ac. pt transferred to surgery.
[2019-01-13] MEDS: 0.9% Normal Saline 1,000 ML 100 ML IV (14:45)
[2019-01-13 14:50] LABS: Bedside Glucose 213 mg/dL (70-110)
--- NOTE | 2019-01-13 14:53 | RAD_ITS ---
STUDY: X-RAY - RIGHT FOOT CLINICAL: Male, 58 years old. Surgical guidance for wound debridement TECHNIQUE: Single fluoroscopic view. Dose area product: 0.196 mGycm2 COMPARISON: None. FINDINGS: Surgical device projects over the peripheral calcaneus. RAD/Foot 2 Views IMPRESSION: Fluoroscopic guidance for calcaneal surgery. Please see procedural report. Electronically Signed: Ramsey Martinez MD (Brooks) at 13:06 EDT , Service support ,
[2019-01-13] MEDS: Bupivacaine Mpf 0.5% 30 ML VIAL (15:15)
--- NOTE | 2019-01-13 16:00 | PCM.OPRPT ---
Problem List (1) Ulcer of right foot with fat layer exposed Status: Chronic (2) Other specified peripheral vascular diseases Status: Chronic (3) Cellulitis of right leg Status: Acute (4) Type 2 diabetes mellitus with diabetic polyneuropathy Status: Chronic (5) Amputation of left lower extremity below knee Status: Chronic (6) Localized edema Status: Chronic (7) Delayed wound healing Status: Chronic (8) Osteomyelitis Status: Acute Report of Operation Date of Procedure: 01/13/19 Pre-Operative Diagnosis: infected dry gangrenous ulcer right heel. osteomyelitis right calcaneus Post-Operative Diagnosis: infected dry gangrenous ulcer right heel. osteomyelitis right calcaneus Surgery/Procedure Performed:: Muscle and subcutaneous excisional debridement right heel with versa jet. Bone biopsy right calcaneus Description of Surgical Findings:: Hemostasis: Controlled with anatomic dissection. No tourniquet utilized Materials: None Specimens were sent Intraoperative fluoroscopy was used to confirm proper bone biopsy placement Complications: None The patient tolerated the procedure and anesthesia well. He was transported to the PACU vital signs stable and vascular status intact to the right lower extremity as compared to his preoperative status. Postoperative orders were entered electronically. He will be transferred back to the medical surgical floor upon continued stability. It is noted he had vascular surgery intervention yesterday with significant improvement in limb perfusion. technician preventative medicine: none - surgeon: Beulah Schultz DPM Type of Anesthesia:: General - LMA, Local - Preoperative: One-to-one mixture 1% lidocaine plain and 0.5% Marcaine plain administered to right ankle block fashion, 17 cc Specimen's removed: Calcaneus bone biopsy sent to microbiology for aerobic, anaerobic, acid-fast, and fungal. Calcaneus bone biopsy sent to pathology Estimated Blood Loss (mL): < 50 mL Description of Procedure: Indications: This is a 58-year-old male with significant past medical history of diabetes with neuropathy, peripheral vascular disease, sleep apnea, chronic kidney disease, hypertension, GERD with prior left below-knee amputation presents with a progressive gangrenous To the right heel secondary to severe peripheral vascular disease. Upon presentation to the hospital he did have cellulitis and lymphangitis and osteomyelitis confirmed with MRI evaluation. Preoperative x-rays did not demonstrate any acute fractures dislocations, soft tissue emphysema or foreign body. He responded initially to IV antibiotics. He did well with his vascular surgery intervention yesterday with balloon angioplasties and improved perfusion to the heel angiosome. Preoperative medical optimization was performed by the medicine team. His preoperative diagnostic data was evaluated including labs and vitals. The preoperative indication, planned procedure, possible benefits, risk, complications, and anticipated healing time and management were discussed in detail with the patient. He understands and elects to proceed with surgery at this time. No guarantees were made. Risks and complications include but are not limited to the following: Pain, swelling, scarring, continued delayed or nonhealing, continued infection, need for further surgery, blood clot, allergic reaction, chronic pain, transfer lesions, loss of limb, function, or life. He understands he is still high risk for additional limb loss of the right lower extremity. I answered all his questions. His surgical limb and consent were signed. Procedure in detail: The patient was transported to the operating room via cart and placed on the operating table in supine position. Final verification of patient, surgery, and limb designation was confirmed via the timeout procedure. No tourniquet was utilized. Preoperative injection was administered at this time by myself. LMA was initiated by anesthesia team. It is noted he is already receiving ceftriaxone, vancomycin, and Flagyl antibiotics on the medical surgical floor. The right lower extremity was prepped and draped in the usual aseptic manner. Surgery began as the following: Attention was first directed to the right posterior heel which there was a semi-moist eschar measuring 4.7 cm x 6 cm with unknown depth. A 15 blade scalpel was used to excise this gangrenous tissue to healthy bleeding tissue margins and it was noted that there was devitalized heller discolored deep muscle tissue and subcutaneous tissue in close approximation with the posterior and plantar calcaneus. Next, a versa jet on setting 8 was used to further debridement devitalized tissue and this was performed successfully to healthy tissue. The post debridement measurement was 5.5 cm x 7.0 cm with a depth of 2 cm at the deepest point. The bone was firm to touch. A clean incision was made to the plantar aspect of the heel and a Sachin needle biopsy trocar was entered in which a bone biopsy was obtained corresponding to the area of suspicious osteomyelitis on the MRI. Proper positioning was confirmed with intraoperative fluoroscopy. The specimen was sent to microbiology and pathology. No pulsatile bleeding was noted and pressure was applied to maintain hemostasis. None of the remaining tissue was necrotic or with purulence. A postoperative dressing consisting of Adaptic, saline wet-to-dry gauze, Kerlix, and abdominal pads were applied. After procedure: The patient tolerated the procedure and anesthesia well. He was transported to PACU with vital signs stable and vascular status consistent with his prior preoperative exam to the right lower extremity (intact). He is advised to continue with strict offloading to this site and to remain nonweightbearing. To continue with proper glycemic control, medical management, DVT prophylaxis per primary team. To continue follow-up with vascular surgery and infectious disease as well. His bone biopsy specimens were sent and the results are pending. To keep his dressing clean, dry, intact. A wound vac will be considered pending tissue survival on next exam. He will be transferred back to the medical surgical floor. I will continue to follow him close while in house. All of his post operative orders were entered electronically. Beulah Schultz DPM, [facility] [place] Grafts/Implants Used: none - Complications none - Admit VTE Documentation VTE Present on Admission: No VTE Mechan Device Prophylaxis: None VTE Pharm Prophylaxis ordered?: Yes
[2019-01-13 16:26] LABS: Bedside Glucose 209 mg/dL (70-110)
[2019-01-13] MEDS: Glucerna Shake 120 ML LIQUID PO (18:06)
[2019-01-13] MEDS: Atorvastatin Calcium 40 MG Tablet PO (22:00)
[2019-01-13] MEDS: Insulin Lispro 100 UNIT/ML INSULN.PEN SC (22:04)
[2019-01-13 22:55] LABS: Bedside Glucose 259 mg/dL (70-110)
[2019-01-14] MEDS: 0.9% Normal Saline 1,000 ML 100 ML IV (00:32)
[2019-01-14] MEDS: MELATONIN 3 MG TABLET PO (00:33)
[2019-01-14] MEDS: oxyCODONE 5 MG Tablet PO ×3 (02:19→12:15)
[2019-01-14 03:47] VITALS: BP 141/75; PULSE 76; RESP 16; TEMP 37; O2SAT 96
[2019-01-14] MEDS: Gabapentin 300 MG Capsule PO ×2 (05:03→13:32)
[2019-01-14] MEDS: metroNIDAZOLE 500 MG Tablet PO ×2 (05:03→13:32)
[2019-01-14 06:39] LABS: Absolute Lymphocyte Count 2.21 X10^3/uL (0.83-4.51); Absolute Neutrophil Count 10.3 X10^3/uL (2.0-7.7); Basophil# 0.04 X10^3/uL; Basophil% 0.3 % (0-1); Eosinophil# 0.18 X10^3/uL; Eosinophils% 1.3 % (0-5); Hematocrit 29.8 % (40-54); Hemoglobin 9.4 g/dL (13.0-16.5); Lymphocyte # 2.21 X10^3/ul (4.0); Mean Corp Hgb Conc 31.5 g/dL (32-36); Mean Corpuscular Hgb 26.9 pg (27.0-32.0); Mean Corpuscular Volume 85.4 fL (80-94); Mean Platelet Vol. 10.4 fl (6.2-12.0); Monocyte% 7.2 % (0-10); NRBC Flagged by Analyzer 0 % (0-5); Neutrophil # 10.33 X10^3/uL (2.7-7.7); Neutrophil % 74.8 % (47-70); Platelet Count 380 K/mm3 (150-450); RBC Distribution Width CV 12.1 % (11.6-14.6); RBC Distribution Width SD 37.5 fl (35.1-43.9); Red Blood Count 3.49 M/mm3 (4.6-6.2); White Blood Count 13.8 K/mm3 (4.4-11.0)
[2019-01-14 06:52] LABS: Anion Gap 6 (5-15); BUN 13 mg/dL (7-18); BUN/Creat Ratio 13.1 RATIO (10-20); Calcium,Total 8.2 mg/dL (8.5-10.1); Chloride 107 mmol/L (98-107); EST Glomerular Filtration Rate 81 mL/min (>60); Est Glom Filt Rate - Afr Amer 99 mL/min (>60); Estimated Creatinine Clearance 79.54 ml/min; Glucose 102 mg/dL (74-106); Sodium Level 142 mmol/L (136-145)
[2019-01-14 07:44] VITALS: BP 153/90; PULSE 74; RESP 16; TEMP 37.1; O2SAT 97
--- NOTE | 2019-01-14 07:49 | NURSING ---
01/13/192299 Patient refused continuous pulse ox. He said, Either you take it off or I will. This RN asked if he would wear it on his foot. He refused.
[2019-01-14] MEDS: Aspirin E.C. 81 MG Tablet PO (08:08)
--- NOTE | 2019-01-14 08:30 | NURSING ---
Pt states that surgery went well yesterday. possible wound VAC placement. will wait to see what Dr Schultz recommends. pt would like to shower prior to VAC application if ordered. pt states he will be going to TCU for approx 20 days.
[2019-01-14] MEDS: Insulin Lispro 100 UNIT/ML INSULN.PEN 15 UNIT SC ×2 (08:42→12:18)
[2019-01-14 08:56] LABS: Bedside Glucose 131 mg/dL (70-110)
[2019-01-14] MEDS: Glucerna Shake 120 ML LIQUID PO (09:51)
[2019-01-14] MEDS: Carvedilol 12.5 MG Tablet PO (09:52)
[2019-01-14] MEDS: Doxazosin 1 MG Tablet 2 MG PO (09:52)
[2019-01-14] MEDS: Clopidogrel Bisulfate 75 MG Tablet PO (09:54)
[2019-01-14] MEDS: Furosemide 40 MG Tablet PO (09:54)
[2019-01-14] MEDS: Lisinopril 20 MG Tablet PO (09:55)
[2019-01-14] MEDS: 0.9% NaCl Peripheral Flush Adult/Peds IV ×2 (10:07→17:55)
[2019-01-14] MEDS: Calcium Carbonate 500 MG Tablet PO (10:11)
[2019-01-14] MEDS: Venlafaxine XR 75 MG Capsule PO (11:02)
[2019-01-14] MEDS: Enoxaparin 40 MG/0.4 ML Syringe SC (11:03)
--- NOTE | 2019-01-14 11:55 | PCM.PN.HOSP ---
Patient Problems: Active and Suspected Problems (Last Reviewed 01/08/19 @ 18:04 by Ryan Hurtado MD) Osteomyelitis (Acute) Gangrene (Acute) Subjective: No new complaints. Vitals/I&O's: Vital Signs Temp Pulse Resp BP Pulse Ox 37.1 C 74 16 153/90 H 97 01/14/19 07:44 01/14/19 07:44 01/14/19 07:44 01/14/19 07:44 01/14/19 07:44 Oxygen Flow Rate (L/min) 2 Oxygen Delivery Method Room Air Weight: 98.3 kg Body Mass Index (BMI) 32.0 Intake and Output for Last 24 Hours 01/12/19 01/13/19 01/14/19 23:59 23:59 23:59 Intake Total 1900 / 2100 1080 / 1530 2496.66 / 2496.66 Output Total 2475 / 2475 450 / 850 400 / 400 Balance -575 / -375 630 / 680 2096.66 / 2096.66 General: Alert, No apparent distress HEENT: Atraumatic, Normocephalic Oral: Moist Mucosa, No Gingival or Mucosal Lesions/ Ulcerations Neck: No Nodes, Thyroid Normal Size and Texture Lungs: Clear to auscultation, Normal air movement, No rhonchi, No wheeze Cardiovascular: Regular rate, Regular Rhythm, Normal S1, Normal S2, No murmurs Abdomen: Bowel Sounds Present, Soft, Non Tender, Non-Distended Psych/Mental Status: Normal Affect, Appropriate Microbiology Past 72 Hours 01/13/19 15:40 Bone - Right Foot Gram Stain - Final 01/13/19 15:40 Bone - Right Foot Wound Culture - Preliminary Gram negative christina 01/07/19 13:00 Wound - Heel Right Gram Stain - Final 01/07/19 13:00 Wound - Heel Right Wound Culture - Final Serratia marcescens Enterococcus faecalis 01/07/19 13:00 Wound - Heel Right Anaerobic Culture - Final Actinomyces neuii Propionibacterium granulosum Anaerobic cocci 01/07/19 12:30 Blood Culture (Wb) - Left Wrist Blood Culture - Final No growth in 5 days. 01/07/19 15:47 Wound - Right Foot Gram Stain - Final 01/07/19 15:47 Wound - Right Foot Wound Culture - Final Serratia marcescens Enterococcus faecalis Coag Negative Staph Gram positive christina 01/07/19 15:47 Wound - Right Foot Anaerobic Culture - Final Anaerobic cocci Laboratory Results 01/13/19 14:47: POC Glucose 213 H 01/13/19 16:21: POC Glucose 209 H 01/13/19 21:48: POC Glucose 259 H 01/14/19 05:54: WBC 13.8 H, RBC 3.49 L, Hgb 9.4 L, Hct 29.8 L, MCV 85.4, MCH 26.9 L, MCHC 31.5 L, RDW Std Deviation 37.5, RDW Coeff of Geraldine 12.1, Plt Count 380, MPV 10.4, Immature Gran % (Auto) 0.400, Neut % (Auto) 74.8 H, Lymph % (Auto) 16.0 L, [place] % (Auto) 7.2, Eos % (Auto) 1.3, Baso % (Auto) 0.3, Absolute Neuts (auto) 10.3 H, Absolute Lymphs (auto) 2.21, Nucleated RBC % 0 01/14/19 05:54: Sodium 142, Potassium 4.0, Chloride 107, Carbon Dioxide 29.0, Anion Gap 6, BUN 13, Creatinine 1.00, Estim Creat Clear Calc 79.54, Est GFR (MDRD) Af Amer 99, Est GFR (MDRD) Non-Af 81, BUN/Creatinine Ratio 13.1, Glucose 102, Calcium 8.2 L 01/14/19 08:37: POC Glucose 131 H Current Medications Acetaminophen (Tylenol) 650 mg PO Q6H PRN PRN PRN Reason: Mild Pain (scale 0-3)/T>100.7 Al Hydroxide/Mg Hydroxide (Mylanta Ii) 30 ml PO Q6H PRN PRN PRN Reason: Gastric Burning Last Admin: 01/12/19 20:17 Dose: 30 ml Documented by: Aspirin (Ecotrin) 81 mg PO DAILYCM [facility] Last Admin: 01/14/19 08:08 Dose: 81 mg Documented by: Atorvastatin Calcium (Lipitor) 40 mg PO DAILY@2200 [facility] Last Admin: 01/13/19 22:00 Dose: 40 mg Documented by: Calcium Carbonate (Tums) 500 mg PO Q4H PRN PRN PRN Reason: HEARTBURN OR INDIGESTION Last Admin: 01/14/19 10:11 Dose: 500 mg Documented by: Carvedilol (Coreg) 12.5 mg PO BID [facility] Last Admin: 01/14/19 09:52 Dose: 12.5 mg Documented by: Clopidogrel Bisulfate (Plavix) 75 mg PO DAILY [facility] Last Admin: 01/14/19 09:54 Dose: 75 mg Documented by: Dextrose (D50w Syringe) 0 gm IV X1 PRN; Protocol PRN Reason: Hypoglycemia Doxazosin Mesylate (Cardura) 2 mg PO BID [facility] Last Admin: 01/14/19 09:52 Dose: 2 mg Documented by: Enoxaparin Sodium (Lovenox) 40 mg SC DAILY@1000 [facility] Last Admin: 01/14/19 11:03 Dose: 40 mg Documented by: Esomeprazole Magnesium (Nexium) 20 mg PO DAILY [facility] Last Admin: 01/14/19 08:47 Dose: 20 mg Documented by: Furosemide (Lasix) 40 mg PO DAILY [facility] Last Admin: 01/14/19 09:54 Dose: 40 mg Documented by: Gabapentin (Neurontin) 300 mg PO TID [facility] Last Admin: 01/14/19 05:03 Dose: 300 mg Documented by: Glucagon () 1 mg IM .X1 PRN PRN Reason: Hypoglycemia Guaifenesin (Robitussin) 20 ml PO Q4H PRN PRN PRN Reason: COUGH Hydralazine HCl (Apresoline Iv) 10 mg IV Q4H PRN PRN PRN Reason: SBP > 160 Last Admin: 01/11/19 18:13 Dose: 10 mg Documented by: Vancomycin IV Pharmacy to Dose (1 ea/ Sodium Chloride) 500 mls @ 250 mls/hr IV X1 PRN; Protocol PRN Reason: Rx to Dose Vancomycin HCl 750 mg/ Sodium (Chloride) 265 mls @ 250 mls/hr IV Q12H [facility] Last Infusion: 01/14/19 06:07 Dose: Infused Documented by: Ceftriaxone Sodium 2 gm/ (Sodium Chloride) 50 mls @ 100 mls/hr IV Q24 [facility] Last Infusion: 01/14/19 10:35 Dose: Infused Documented by: Sodium Chloride () 1,000 mls @ 100 mls/hr IV .Q10H [facility] Last Infusion: 01/14/19 05:04 Dose: 0 mls/hr Documented by: Insulin Glargine (Lantus (Bkc)) 35 units SC BID [facility] Last Admin: 01/14/19 09:58 Dose: 35 units Documented by: Insulin Human Lispro (Humalog Kwikpen (Bk)) 0 unit SC ACHS [facility]; Protocol Last Admin: 01/14/19 08:39 Dose: Not Given Documented by: Insulin Human Lispro (Humalog Kwikpen ([facility])) 15 unit SC 0800,1200,1700 [facility] Last Admin: 01/14/19 08:42 Dose: 15 units Documented by: Lisinopril (Zestril) 20 mg PO DAILY [facility] Last Admin: 01/14/19 09:55 Dose: 20 mg Documented by: Magnesium Hydroxide (Milk Of Magnesia) 30 ml PO DAILY PRN PRN PRN Reason: Constipation Last Admin: 01/08/19 21:23 Dose: 30 ml Documented by: Meclizine HCl (Antivert) 25 mg PO TID PRN PRN PRN Reason: dizziness Melatonin (Melatonin) 3 mg PO QHS PRN PRN PRN Reason: INSOMNIA Last Admin: 01/14/19 00:33 Dose: 3 mg Documented by: Metronidazole (Flagyl) 500 mg PO TID [facility] Last Admin: 01/14/19 05:03 Dose: 500 mg Documented by: Morphine Sulfate () 2 - 4 mg IV Q3H PRN PRN PRN Reason: Severe Pain (pain scale 6-10) Last Admin: 01/13/19 21:54 Dose: 2 mg Documented by: Morphine Sulfate () 2 - 4 mg IV Q3H PRN PRN PRN Reason: Severe Pain (pain scale 6-10) Nutritional Formula (Lactose Free) (Glucerna Shake) 120 ml PO 4X/DAY [facility] Last Admin: 01/14/19 09:51 Dose: 120 ml Documented by: Ondansetron HCl (Zofran) 4 mg IV Q8H PRN PRN PRN Reason: Nausea Last Admin: 01/13/19 10:21 Dose: 4 mg Documented by: Oxycodone HCl (Oxyir) 5 mg PO Q4H PRN PRN PRN Reason: Moderate Pain (pain scale 4-5) Last Admin: 01/14/19 08:07 Dose: 5 mg Documented by: [facility] Last Admin: 01/14/19 08:08 Dose: 20 meq Documented by: Senna/Docusate Sodium (Senokot-S, Jacquelyn-Colace) 2 tablet PO DAILY PRN PRN PRN Reason: CONSTIPATION Last Admin: 01/12/19 17:59 Dose: 2 tablet Documented by: Sodium Chloride () 10 - 40 ml IV UD PRN PRN Reason: SALINE FLUSH Last Admin: 01/14/19 10:07 Dose: 10 ml Documented by: Venlafaxine HCl (Effexor Xr) 75 mg PO DAILY [facility] Last Admin: 01/14/19 11:02 Dose: 75 mg Documented by: Medical Necessity - Tobacco Use Smoking Status: Former smoker Tobacco Use: Cigarettes Assessment/Plan All Active Problems (Last Reviewed 01/08/19 @ 18:04 by Ryan Hurtado MD) Osteomyelitis (Acute) Gangrene (Acute) Chronic ulcer of left foot with necrosis of muscle (Resolved) Ulcer of right foot with fat layer exposed (Acute) Puncture wound (Resolved) Lymphangitis, acute, lower leg (Resolved) Stroke (Resolved) Ulcer of right lower extremity with fat layer exposed (Resolved) MRSA (methicillin resistant staph aureus) culture positive (Resolved) Malnutrition (Resolved) Cellulitis of right leg (Acute) 1. Infected Right diabetic foot noted osteomyelitis of calcaneus. occluded posterior tibial and peroneal. mild stenosis in SFA and anterior tibial artery continue abx and supportive mgmt podiatry following and their plan contingent on reperfusion post-angioplasty (wound care v debridement) polymicrobial: Serratia, Enteroccus, BUSINESS INSURANCE AGENT, GPR per ID: plan for 6 weeks of IV vanc, CTX and PO metro to OR today for further debridement 2. Right calcaneal osteomyelitis as above 3. PAD angioplasty of anterior tibial artery into the popliteal artery with a 3 x 3.5 x 220 balloon. Also ballooned the proximal anterior tibia with a 3 x 100 balloon. on ASA and clopidogrel and atorvastatin 4. DM2 uncontrolled--see labs improved A1c 12.3 some improvement already on 60 basal QHS, change to 35 BID, starting 01/12. continue with prandial insulin 15 w meals. will only give 20 of lantus this AM for surgery this afternoon. 5. CAD stable continue meds 6. VTE prophylaxis: LMWH. Discharge planning, pending precert. Code Visit Inpatient E&M: 67131 Subs Hosp L2
[2019-01-14 12:01] LABS: Bedside Glucose 206 mg/dL (70-110)
[2019-01-14] MEDS: Insulin Lispro 100 UNIT/ML INSULN.PEN SC (12:17)
--- NOTE | 2019-01-14 12:37 | CASEMGMT ---
Addendum entered by Luz Maria Gregory 01/14/19 16:29: BEBO placed a call to pt's CM Shyann Harper at [facility] and left her a message that pt is discharging to TCU today. Addendum entered by Luz Maria Gregory 01/14/19 14:38: SW received message from Maddy with TCU stating pre-cert has been obtained and pt can discharge to TCU today. Maddy states pre-cert is only good today and tomorrow. Physician updated. Physician is discharging to TCU today. BEBO placed a call to Maddy with TCU and updated her on this. Pt updated on approval and discharge today. Plan: TCU today Original Note: Social Work Note BEBO spoke with Maddy with TCU who confirms she submitted for pre-cert. BEBO placed green sheet on chart in the event pre-cert is obtained. Plan: TCU pending pre-cert Luz Maria Gregory MSW, [employer]
--- NOTE | 2019-01-14 13:47 | PCM.PN.ID ---
Patient Problems: Active and Suspected Problems (Last Reviewed 01/08/19 @ 18:04 by Ryan Hurtado MD) Osteomyelitis (Acute) Gangrene (Acute) Subjective: C/o pain in foot, no fever, no n/v/d. - Physical Exam General: Alert, Cooperative, No apparent distress Lungs: Clear to auscultation, Normal air movement Cardiovascular: Regular rate, Regular Rhythm Abdomen: Soft, Non Tender, Non-Distended Skin: Ulcer/ Wound - foot wrapped Vital Signs Temp Pulse Resp BP Pulse Ox 98.8 F 74 16 153/90 H 97 01/14/19 07:44 01/14/19 07:44 01/14/19 07:44 01/14/19 07:44 01/14/19 07:44 Oxygen Flow Rate (L/min) 2 Oxygen Delivery Method Room Air Weight: 98.3 kg Body Mass Index (BMI) 32.0 Intake and Output for Last 24 Hours 01/12/19 01/13/19 01/14/19 23:59 23:59 23:59 Intake Total 1900 / 2100 1080 / 1530 2496.66 / 2496.66 Output Total 2475 / 2475 450 / 850 400 / 400 Balance -575 / -375 630 / 680 2096.66 / 2096.66 Microbiology Past 72 Hours 01/13/19 15:40 Gram Stain - Final Bone - Right Foot Wound Culture - Preliminary Gram negative christina 01/07/19 13:00 Gram Stain - Final Wound - Heel Right Wound Culture - Final Serratia marcescens Enterococcus faecalis Anaerobic Culture - Final Actinomyces neuii Propionibacterium granulosum Anaerobic cocci 01/07/19 12:30 Blood Culture - Final Blood Culture (Wb) - Left Wrist No growth in 5 days. 01/07/19 15:47 Gram Stain - Final Wound - Right Foot Wound Culture - Final Serratia marcescens Enterococcus faecalis Coag Negative Staph Gram positive christina Anaerobic Culture - Final Anaerobic cocci Laboratory Tests Past 24 Hrs 01/14/19 01/14/19 05:54 05:54 WBC 13.8 H RBC 3.49 L Hgb 9.4 L Hct 29.8 L MCV 85.4 MCH 26.9 L MCHC 31.5 L RDW Std Deviation 37.5 RDW Coeff of Geraldine 12.1 Plt Count 380 MPV 10.4 Immature Gran % (Auto) 0.400 Neut % (Auto) 74.8 H Lymph % (Auto) 16.0 L [place] % (Auto) 7.2 Eos % (Auto) 1.3 Baso % (Auto) 0.3 Absolute Neuts (auto) 10.3 H Absolute Lymphs (auto) 2.21 Nucleated RBC % 0 Sodium 142 Potassium 4.0 Chloride 107 Carbon Dioxide 29.0 Anion Gap 6 BUN 13 Creatinine 1.00 Estim Creat Clear Calc 79.54 Est GFR (MDRD) Af Amer 99 Est GFR (MDRD) Non-Af 81 BUN/Creatinine Ratio 13.1 Glucose 102 Calcium 8.2 L POC Glucose 01/14/19 01/14/19 01/13/19 11:56 08:37 21:48 POC Glucose 206 H 131 H 259 H 01/13/19 01/13/19 16:21 14:47 POC Glucose 209 H 213 H Medical Necessity - Tobacco Use Smoking Status: Former smoker Tobacco Use: Cigarettes Route of nutrition/ use of supplements: [] Nutritional Intake: [] IV Site: [] Brown Catheter: [] - Assessment/Plan Antibiotics: [] Assessment/Plan: [] R heel osteo, gangrene with DM and PVD - MSSA pcr (+). Wound cx with serratia, enterococcus, CoNS, GPR. 02/11 narrowed abx to vanc/ceftriaxone/flagyl. Now s/p revascularization. Plan is for picc and 6 weeks of iv vanc/ceftriaxone and po flagyl. Stop date 02/18/19. Weekly bmp, cbc, esr, and vanc trough while on abx. Now s/p OR debridement 01/13, bone cx with GNR. Will follow
[2019-01-14] MEDS: Morphine 2 MG/ML Syringe IV (13:49)
--- NOTE | 2019-01-14 14:13 | PCM.TXEXTCAR ---
- Diet 01/13/19 16:00 Diet: Carbohydrate Controlled Is pt able to select menu?: Yes - Routine Orders/Code Status Routine Lab Work: CBC, BMP - Wound(s) RIGHT HEEL Wound Type: Open Surgical Wound Dressing Change: betadine with dry dressing right hand 3rd & 4th fingers Wound Type: chews fingers left hand 4th finger nail bed Wound Type: chews fingers right hand 4th finger tip Wound Type: Open sore, chews fingers LEFT GROIN Wound Type: Puncture - Therapies Weight Bearing: Non weight bearing Physical Therapy: Eval and Treat Occupational Therapy: Eval and Treat - Allergies/Procedures Done in Hospital Allergies/Adverse Reactions: Allergies No Known Allergies Allergy (Verified 01/07/19 11:22) Procedures: - - Muscle and subcutaneous excisional debridement right heel with versa jet. Bone biopsy right calcaneus. 1. Ultrasound-guided access retrograde left common femoral artery. 2. Right lower extremity angiogram with catheter placed into the past third order anterior tibial artery on the right. 3. Balloon angioplasty of the anterior tibial artery into the popliteal artery with a 3 x 3.5 x 220 balloon. Also ballooned the proximal anterior tibia with a 3 x 100 balloon. 4. Closure with Star close - Type of Care/Length of Stay Estimated LOS: Convalescent Care Less Than 30 days Type of Care Needed: Skilled Rehab Potential: Fair Prognosis: Fair - Additional Orders/Day of Discharge Day of Discharge: 01/14/19 - Dietary and Speech Recommendations Dietitian Recommendations/Changes: Rec continue 2000 calorie diet. Rec Prashant 1 packet BID to promote wound healing - order from pharmacy. - Follow Up Care Primary Care Physician: Reynaldo Lou DO [Primary Care Provider] - Within 2 Weeks Please Follow Up With: Ryan Hurtado MD - vascular surgery When: 2 weeks Please Follow Up With: Beulah Schultz DPM - podiatry When: 1-2 weeks
--- NOTE | 2019-01-14 14:18 | DS.PCM_ITS ---
Discharge Date and Diagnosis - Problem List Patient Problems: Active and Suspected Problems (Last Reviewed 01/08/19 @ 18:04 by Ryan Hurtado MD) Osteomyelitis (Acute) Gangrene (Acute) Date of Admission: 01/07/19 Date of Discharge: 01/14/19 - Primary Discharge Diagnosis Active and Suspected Problems (Last Reviewed 01/08/19 @ 18:04 by Ryan Hurtado MD) Osteomyelitis (Acute) Gangrene (Acute) 1. Infected Right diabetic foot * noted osteomyelitis of calcaneus. * occluded posterior tibial and peroneal. mild stenosis in SFA and anterior tibial artery * continue abx and supportive mgmt * podiatry following and their plan contingent on reperfusion post-angioplasty (wound care v debridement) * polymicrobial: Serratia, Enteroccus, FILTER TANK TENDER, GPR * per ID: plan for 6 weeks of IV vanc, CTX and PO metro. abx through 02/18/19 * status post Muscle and subcutaneous excisional debridement right heel with versa jet. Bone biopsy right calcaneus on 01/13 2. Right calcaneal osteomyelitis * as above 3. PAD * angioplasty of anterior tibial artery into the popliteal artery with a 3 x 3.5 x 220 balloon. Also ballooned the proximal anterior tibia with a 3 x 100 balloon. * on ASA and clopidogrel and atorvastatin 4. DM2 * uncontrolled--see labs * improved * A1c 12.3 * some improvement * already on 60 basal QHS, change to 35 BID, starting 01/12. * continue with prandial insulin 15 w meals. - Secondary Discharge Diagnosis Chronic Problems (Last Reviewed 01/08/19 @ 18:04 by Ryan Hurtado MD) Type 2 diabetes mellitus with diabetic polyneuropathy (Chronic) Ulcer of right foot with fat layer exposed (Chronic) PAD (peripheral artery disease) (Chronic) Amputation of left lower extremity below knee (Chronic) History of myocardial infarction (Chronic) Chronic kidney disease, stage III (moderate) (Chronic) HTN (hypertension) (Chronic) Heart disease (Chronic) Diabetes (Chronic) Benign hypertension (Chronic) Chronic kidney disease, stage III (moderate) (Chronic) Type 2 diabetes mellitus (Chronic) Gastroesophageal reflux disease (Chronic) Obesity (Chronic) History of CHF (congestive heart failure) (Chronic) Obstructive sleep apnea syndrome (Chronic) Chronic ulcer of right leg with necrosis of muscle (Chronic) Type 2 diabetes mellitus with diabetic polyneuropathy (Chronic) Other specified peripheral vascular diseases (Chronic) Localized edema (Chronic) Delayed wound healing (Chronic) Hospital Course and Treatment Imaging Results: Clinical Impression(s) from Imaging Studies Foot X-Ray 01/07/19 12:51 IMPRESSION: Heel ulcer without radiographic evidence of acute osteomyelitis 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 Electronically Signed: Fernando Sprague MD at 10:50 EDT , Service support , Consultations 01/07/19 15:26 Consult: Onc/Wound/package maker Routine Comment: Ryan Hurtado: vascular surgery Beata Schultz: podiatry Jean Pierre Pringle: ID Operations: - - 01/13/19: Muscle and subcutaneous excisional debridement right heel with versa jet. Bone biopsy right calcaneus 01/12/19: 1. Ultrasound-guided access retrograde left common femoral artery. 2. Right lower extremity angiogram with catheter placed into the past third order anterior tibial artery on the right. 3. Balloon angioplasty of the anterior tibial artery into the popliteal artery with a 3 x 3.5 x 220 balloon. Also ballooned the proximal anterior tibia with a 3 x 100 balloon. 4. Closure with Star close Summary of Care Provided: The patient is a 58 year old M presents with right heel ulcer. Patient been treated for this for about 3 weeks prior. Was seen in the emergency room 4 days prior to this admission and presented again with worsening symptoms. Patient underwent some local I&D in the emergency room and started on broad-spectrum antibiotics. Patient did undergo an MRI that showed a marrow edema consistent with ostium mellitus of the posterior calcaneus. Patient was seen in consultation by podiatry. Patient underwent ankle-brachial index that showed occluded posterior and to tibial and mid peroneal arteries in the right lower extremity. Patient was seen by vascular surgery and on the second underwent ultrasound-guided access of the left common femoral artery with angioplasty of the anterior tibial artery into the popliteal artery and also the proximal anterior tibial artery. On the third, patient underwent further debridement of his heel with bone biopsy. Patient seen by Dr. Ortega who ceftriaxone and vancomycin and metronidazole for polymicrobial infection. Patient continue the antibiotics through 18 February. [] Patient Problems: Active and Suspected Problems (Last Reviewed 01/08/19 @ 18:04 by Ryan Hurtado MD) Osteomyelitis (Acute) Gangrene (Acute) - Physical Exam Vital Signs Temp Pulse Resp BP Pulse Ox 37.1 C 74 16 153/90 H 97 01/14/19 07:44 01/14/19 07:44 01/14/19 07:44 01/14/19 07:44 01/14/19 07:44 Oxygen Flow Rate (L/min) 2 Oxygen Delivery Method Room Air Weight: 98.3 kg Body Mass Index (BMI) 32.0 Intake and Output for Last 24 Hours 01/12/19 01/13/19 01/14/19 23:59 23:59 23:59 Intake Total 1900 / 2100 1080 / 1530 2496.66 / 2496.66 Output Total 2475 / 2475 450 / 850 400 / 400 Balance -575 / -375 630 / 680 2096.66 / 2096.66 Microbiology Past 72 Hours 01/13/19 15:40 Gram Stain - Final Bone - Right Foot Wound Culture - Preliminary Gram negative christina 01/07/19 13:00 Gram Stain - Final Wound - Heel Right Wound Culture - Final Serratia marcescens Enterococcus faecalis Anaerobic Culture - Final Actinomyces neuii Propionibacterium granulosum Anaerobic cocci 01/07/19 12:30 Blood Culture - Final Blood Culture (Wb) - Left Wrist No growth in 5 days. 01/07/19 15:47 Gram Stain - Final Wound - Right Foot Wound Culture - Final Serratia marcescens Enterococcus faecalis Coag Negative Staph Gram positive christina Anaerobic Culture - Final Anaerobic cocci Laboratory Tests Past 24 Hrs 01/14/19 01/14/19 05:54 05:54 WBC 13.8 H RBC 3.49 L Hgb 9.4 L Hct 29.8 L MCV 85.4 MCH 26.9 L MCHC 31.5 L RDW Std Deviation 37.5 RDW Coeff of Geraldine 12.1 Plt Count 380 MPV 10.4 Immature Gran % (Auto) 0.400 Neut % (Auto) 74.8 H Lymph % (Auto) 16.0 L [place] % (Auto) 7.2 Eos % (Auto) 1.3 Baso % (Auto) 0.3 Absolute Neuts (auto) 10.3 H Absolute Lymphs (auto) 2.21 Nucleated RBC % 0 Sodium 142 Potassium 4.0 Chloride 107 Carbon Dioxide 29.0 Anion Gap 6 BUN 13 Creatinine 1.00 Estim Creat Clear Calc 79.54 Est GFR (MDRD) Af Amer 99 Est GFR (MDRD) Non-Af 81 BUN/Creatinine Ratio 13.1 Glucose 102 Calcium 8.2 L POC Glucose 01/14/19 01/14/19 01/13/19 11:56 08:37 21:48 POC Glucose 206 H 131 H 259 H 01/13/19 01/13/19 16:21 14:47 POC Glucose 209 H 213 H Discharge Diet: 1800 Calorie Control Diet Weight Bearing Status: No weight bearing - RLE Call your doctor if your incision/area has: Continuous Slow Oozing, Sudden Increased Bleeding, Increased Pain/ Swelling, Increased Redness Home Medications: Medications to take at Discharge lisinopril 20 mg tablet 20 mg PO DAILY #90 tab 10/19/18 furosemide 40 mg tablet 40 mg PO DAILY 12/09/18 Clopidogrel Bisulfate [Clopidogrel] 75 mg PO DAILY 12/31/18 Gabapentin [Neurontin] 300 mg PO TID 12/31/18 Terazosin HCl 2 mg PO BID 12/31/18 Venlafaxine HCl [Venlafaxine HCl ER] 75 mg PO DAILY 12/31/18 Aspirin E.C. [Ecotrin] 81 mg PO DAILY@0800 01/07/19 Atorvastatin Calcium 40 mg PO QHS 01/07/19 Esomeprazole Magnesium 20 mg PO DAILY 01/07/19 carvedilol 12.5 mg tablet 12.5 mg PO BID #180 tab 01/07/19 Ceftriaxone 2 gm IV Q24 38 Days #38 vial 01/12/19 Vancomycin IV 750 mg IV Q12H 38 Days #76 vial 01/12/19 metroNIDAZOLE [Flagyl] 500 mg PO TID 40 Days #120 tab 01/12/19 Acetaminophen [Tylenol Tablet] 650 mg PO Q6H PRN PRN tablet 01/14/19 Enoxaparin [Lovenox] 40 mg SC DAILY@1000 syringe 01/14/19 Insulin Glargine [Lantus SoloStar Pen] 35 units SC BID pen 01/14/19 Insulin Lispro [Humalog KwikPen] 15 unit SC 0800,1200,1700 insuln.pen 01/14/19 Meclizine HCl [Antivert] 25 mg PO TID PRN PRN tablet 01/14/19 Melatonin 3 mg PO QHS PRN PRN tablet 01/14/19 Oxycodone [Oxyir] 5 mg PO Q6H PRN 3 Days #12 tab 01/14/19 Senna/Docusate Sodium [Senokot-S] 2 tablet PO DAILY PRN PRN tablet 01/14/19 Following Prescrptions Were Given to Patient: Ceftriaxone 2 gm IV Q24 38 Days #38 vial Prescription Printed metroNIDAZOLE [Flagyl] 500 mg PO TID 40 Days #120 tab Prescription Printed Oxycodone [Oxyir] 5 mg PO Q6H PRN 3 Days #12 tab PRN Reason: moderate to severe pain Prescription Printed Vancomycin IV 750 mg IV Q12H 38 Days #76 vial Prescription Printed Primary Care Physician: Reynaldo Lou DO [Primary Care Provider] - Within 2 Weeks Please Follow Up With: Ryan Hurtado MD - vascular surgery When: 2 weeks Please Follow Up With: Beulah Schultz DPM - podiatry When: 1-2 weeks Disposition: Snf facility Minutes spent on discharge:: 35 Patient Condition:: Fair Medical Necessity - Tobacco Use Smoking Status: Former smoker Tobacco Use: Cigarettes Meaningful Use Info Meaningful Use Diagnoses (Choose all that apply): None applicable Code Visit Inpatient E&M: 36279 Disch Hosp
[2019-01-14 14:33] VITALS: BP 144/80; PULSE 73; RESP 16; TEMP 37.2; O2SAT 98
--- NOTE | 2019-01-14 15:15 | DCINST_ITS ---
Discharge Diet: 1800 Calorie Control Diet Weight Bearing Status: No weight bearing - RLE Additional Activity Instructions:: while laying in bed, he must stack a couple of pillows behind the lower leg to float the heel in the air. Call your doctor if your incision/area has: Continuous Slow Oozing, Sudden Increased Bleeding, Increased Pain/ Swelling, Increased Redness Cleanse incision/area with: Keep Dressing Clean & Dry - wound vac change q 72 hours; continuous 150 mmHg Allergies/Adverse Reactions: Allergies No Known Allergies Allergy (Verified 01/07/19 11:22) Medications to take at Discharge lisinopril 20 mg tablet 20 mg PO DAILY #90 tab 10/19/18 furosemide 40 mg tablet 40 mg PO DAILY 12/09/18 Clopidogrel Bisulfate [Clopidogrel] 75 mg PO DAILY 12/31/18 Gabapentin [Neurontin] 300 mg PO TID 12/31/18 Terazosin HCl 2 mg PO BID 12/31/18 Venlafaxine HCl [Venlafaxine HCl ER] 75 mg PO DAILY 12/31/18 Aspirin E.C. [Ecotrin] 81 mg PO DAILY@0800 01/07/19 Atorvastatin Calcium 40 mg PO QHS 01/07/19 Esomeprazole Magnesium 20 mg PO DAILY 01/07/19 carvedilol 12.5 mg tablet 12.5 mg PO BID #180 tab 01/07/19 Ceftriaxone 2 gm IV Q24 38 Days #38 vial 01/12/19 Vancomycin IV 750 mg IV Q12H 38 Days #76 vial 01/12/19 metroNIDAZOLE [Flagyl] 500 mg PO TID 40 Days #120 tab 01/12/19 Acetaminophen [Tylenol Tablet] 650 mg PO Q6H PRN PRN tab 01/14/19 Enoxaparin [Lovenox] 40 mg SUBCUT DAILY@1000 syringe 01/14/19 Insulin Glargine [Lantus SoloStar Pen] 35 units SUBCUT BID pen 01/14/19 Insulin Lispro [Humalog KwikPen] 15 unit SUBCUT 0800,1200,1700 insuln.pen 01/14/19 Meclizine HCl [Antivert] 25 mg PO TID PRN PRN tab 01/14/19 Melatonin 3 mg PO QHS PRN PRN tab 01/14/19 Oxycodone [Oxyir] 5 mg PO Q6H PRN 3 Days #12 tab 01/14/19 Senna/Docusate Sodium [Senokot-S] 2 tab PO DAILY PRN PRN tab 01/14/19 The following prescriptions were given: Ceftriaxone 2 gm IV Q24 38 Days #38 vial Prescription Printed metroNIDAZOLE [Flagyl] 500 mg PO TID 40 Days #120 tab Prescription Printed Oxycodone [Oxyir] 5 mg PO Q6H PRN 3 Days #12 tab PRN Reason: moderate to severe pain Prescription Printed Vancomycin IV 750 mg IV Q12H 38 Days #76 vial Prescription Printed Primary Care Physician: Reynaldo Lou DO [Primary Care Provider] - Within 2 Weeks Test Results: Test results from this visit will be discussed in further detail at your follow- up appointment, if applicable. Please Follow Up With: Ryan Hurtado MD - vascular surgery When: 2 weeks Please Follow Up With: Beulah Schultz DPM - podiatry When: 1-2 weeks Proposed Discharge Date: 01/14/19
--- NOTE | 2019-01-14 15:17 | PN_ITS ---
Patient Problems: Active and Suspected Problems (Last Reviewed 01/08/19 @ 18:04 by Ryan Hurtado MD) Osteomyelitis (Acute) Gangrene (Acute) Subjective: This 58-year-old male with severe peripheral vascular disease now status post intervention, diabetes with neuropathy, contralateral limb below-knee amputation was seen bedside postoperative day #1 debridement of nonviable soft tissue and bone biopsy of the calcaneus of the right lower extremity. He does have subjective chills. He denies fever, nausea, vomiting. His pain is moderate and was aggravated after his physical therapy session. He is planning to be transferred to the transitional care unit later this evening. - Physical Exam General: Alert, Oriented x3, Cooperative Extremities: No cyanosis, Capillary Refill Less than 3 Seconds - Peripheral borders at the wound debridement site and to all digits of the right foot, No Calf Tenderness - Negative Castillo and Brooks sign right lower extremity, Diminished Peripheral Pulses, Edema - Very mild right lower extremity, - - Left below-knee amputation Skin: Ulcer/ Wound - There is widespread debridement and skin discontinuity to the right heel without purulence, erythema, streaking, odor, infection, necrosis. There is exposed bone noted this is firm and white. The peripheral skin is hairless and atrophic. Musculoskeletal: No Tenderness to Palpation of Joints or Extremities, Muscle Wasting, Tenderness - Reduced pain on palpation to palpation of the debridement. There is no bogginess or fluctuance on palpation, - - Compartment soft to palpate right lower extremity Neurological: - - Lack of normal epicritic sensation light touch is consistent with neuropathy Psych/Mental Status: Normal Affect, Appropriate Vital Signs Temp Pulse Resp BP Pulse Ox 99.0 F 73 16 144/80 H 98 01/14/19 14:33 01/14/19 14:33 01/14/19 14:33 01/14/19 14:33 01/14/19 14:33 Oxygen Flow Rate (L/min) 2 Oxygen Delivery Method Room Air Weight: 98.3 kg Body Mass Index (BMI) 32.0 Intake and Output for Last 24 Hours 01/12/19 01/13/19 01/14/19 23:59 23:59 23:59 Intake Total 1900 / 2100 1080 / 1530 2496.66 / 2496.66 Output Total 2475 / 2475 450 / 850 400 / 400 Balance -575 / -375 630 / 680 2096.66 / 2096.66 Microbiology Past 72 Hours 01/13/19 15:40 Gram Stain - Final Bone - Right Foot Wound Culture - Preliminary Gram negative christina 01/07/19 13:00 Gram Stain - Final Wound - Heel Right Wound Culture - Final Serratia marcescens Enterococcus faecalis Anaerobic Culture - Final Actinomyces neuii Propionibacterium granulosum Anaerobic cocci 01/07/19 12:30 Blood Culture - Final Blood Culture (Wb) - Left Wrist No growth in 5 days. 01/07/19 15:47 Gram Stain - Final Wound - Right Foot Wound Culture - Final Serratia marcescens Enterococcus faecalis Coag Negative Staph Gram positive christina Anaerobic Culture - Final Anaerobic cocci Laboratory Tests Past 24 Hrs 01/14/19 01/14/19 05:54 05:54 WBC 13.8 H RBC 3.49 L Hgb 9.4 L Hct 29.8 L MCV 85.4 MCH 26.9 L MCHC 31.5 L RDW Std Deviation 37.5 RDW Coeff of Geraldine 12.1 Plt Count 380 MPV 10.4 Immature Gran % (Auto) 0.400 Neut % (Auto) 74.8 H Lymph % (Auto) 16.0 L [place] % (Auto) 7.2 Eos % (Auto) 1.3 Baso % (Auto) 0.3 Absolute Neuts (auto) 10.3 H Absolute Lymphs (auto) 2.21 Nucleated RBC % 0 Sodium 142 Potassium 4.0 Chloride 107 Carbon Dioxide 29.0 Anion Gap 6 BUN 13 Creatinine 1.00 Estim Creat Clear Calc 79.54 Est GFR (MDRD) Af Amer 99 Est GFR (MDRD) Non-Af 81 BUN/Creatinine Ratio 13.1 Glucose 102 Calcium 8.2 L POC Glucose 01/14/19 01/14/19 01/13/19 11:56 08:37 21:48 POC Glucose 206 H 131 H 259 H 01/13/19 16:21 POC Glucose 209 H Medical Necessity - Tobacco Use Smoking Status: Former smoker Tobacco Use: Cigarettes Assessment/Plan All Active Problems (Last Reviewed 01/08/19 @ 18:04 by Ryan Hurtado MD) Osteomyelitis (Acute) Gangrene (Acute) Chronic ulcer of left foot with necrosis of muscle (Resolved) Ulcer of right foot with fat layer exposed (Acute) Puncture wound (Resolved) Lymphangitis, acute, lower leg (Resolved) Stroke (Resolved) Ulcer of right lower extremity with fat layer exposed (Resolved) MRSA (methicillin resistant staph aureus) culture positive (Resolved) Malnutrition (Resolved) Cellulitis of right leg (Acute) -Severe peripheral arterial disease right lower extremity with recent heel ulcer/necrosis gangrene status post vascular and podiatry surgical intervention -POD #1 right heel soft tissue excisional debridement with calcaneus bone biopsy -Cellulitis right heel, resolved -Osteomyelitis right calcaneus -Diabetes, peripheral neuropathy -Left BKA -Other comorbidities I reviewed his case. He is afebrile and his vital signs are stable. WBC at 13.8. He had a successful vascular surgery procedure performed earlier this week and has maximal perfusion noted at this time. His surgically debrided ulcer site was evaluated there are no signs of infection or new tissue necrosis noted. The wound bed appears to be moist and I recommend application of a wound VAC. The settings can be placed on continuous 150 mmHg and this can be changed every 3 days. The bone biopsy obtained from surgery was sent to microbiology and pathology; the results are pending. Preoperative wound cultures have been reviewed and he continues on IV antibiotic therapy (vancomycin, ceftriaxone, Flagyl until 02/18/2019) per infectious disease recommendations. He was advised to remain non-weightbearing right heel. Keep right heel offloaded at all times. Podiatry will continue to follow while in house and also in transfer to the transitional care unit. Please do not hesitate to call if you have any questions. Beulah Schultz DPM, [facility] [phone]
--- NOTE | 2019-01-14 15:40 | NURSING ---
wound photo: right heel
[2019-01-14 16:36] LABS: Bedside Glucose 235 mg/dL (70-110)
== END 2019-01-14 17:00 | disposition skilled nursing facility (03) | DRG 253 ==
LOC: ED 12:32 → MS3 14:09 → PCU 01-12 09:07 → MS3 01-12 12:48
PROVIDERS: Anesthesiology; Hospitalist; Podiatrist; Admitting Provider Internal Medicine; Emergency Provider Emergency Medicine; Family Provider Family Medicine; PCP Family Medicine; Referring Provider Internal Medicine
PROC: 0KBV0ZZ Excision of Right Foot Muscle, Open Approach (ICD-10-PCS; principal; 2019-01-13 14:30)
DX: E11.52 Type 2 diabetes mellitus with diabetic peripheral angiopathy with gangrene (principal); L03.115 Cellulitis of right lower limb; I13.0 Hypertensive heart and chronic kidney disease with heart failure and stage 1 through stage 4 chronic kidney disease, or unspecified chronic kidney disease; M86.8X7 Other osteomyelitis, ankle and foot; E11.628 Type 2 diabetes mellitus with other skin complications; E11.69 Type 2 diabetes mellitus with other specified complication; B96.89 Other specified bacterial agents as the cause of diseases classified elsewhere; E11.42 Type 2 diabetes mellitus with diabetic polyneuropathy; I25.10 Atherosclerotic heart disease of native coronary artery without angina pectoris; N18.3 Chronic kidney disease, stage 3 (moderate); E11.65 Type 2 diabetes mellitus with hyperglycemia; E11.22 Type 2 diabetes mellitus with diabetic chronic kidney disease; E78.5 Hyperlipidemia, unspecified; K21.9 Gastro-esophageal reflux disease without esophagitis; I50.9 Heart failure, unspecified; G47.33 Obstructive sleep apnea (adult) (pediatric); B95.2 Enterococcus as the cause of diseases classified elsewhere; E66.9 Obesity, unspecified; Z79.4 Long term (current) use of insulin; Z89.512 Acquired absence of left leg below knee; I25.2 Old myocardial infarction; Z87.891 Personal history of nicotine dependence; Z95.1 Presence of aortocoronary bypass graft; Z68.32 Body mass index [BMI] 32.0-32.9, adult
CPT/HCPCS: 36245; 36415; 37228; 73620; 73630; 73718; 75710; 76000; 76937; 80048; 80202; 82962; 83036; 85025; 85610; 87015; 87040; 87070; 87075; 87076; 87077; 87102; 87116; 87176; 87186; 87205; 87206; 87640; 88304; 88305; 88311; 93005; 93926; 97162; 97166; 97530; 97802; 99152; 99153; 99284; J7030; J7040; J7050; Q9967; A4216; C1725; C1760; C1769; C1887; C1894; J0696; J2405

== ENCOUNTER 2019-01-14 17:15 | Inpatient (IN) | payer MEDICARE, SELFPAY ==
[2019-01-14 17:15] VITALS: BMI 34.7
[2019-01-14 19:46] VITALS: BP 158/91; PULSE 81; RESP 18; TEMP 36.8; O2SAT 94; BMI 31.8; BMI 31.9
--- NOTE | 2019-01-14 20:02 | HP.PCM_ITS ---
Problem List (1) Debility Status: Acute (2) Ulcer of right foot due to type 2 diabetes mellitus Status: Acute (3) Acute osteomyelitis of right calcaneus Status: Acute (4) Peripheral arterial occlusive disease Status: Chronic (5) Chronic kidney disease Status: Chronic (6) Diabetic polyneuropathy Status: Chronic (7) Sleep apnea Status: Chronic (8) HTN (hypertension) Status: Chronic Qualifiers: (9) Diabetes Status: Chronic Qualifiers: (10) Gastroesophageal reflux disease Status: Chronic Qualifiers: (11) Cellulitis of right leg Status: Acute History of Present Illness Date of Admission: 01/14/19 Chief Complaint: Here for rehabilitation, strengthening, intravenous antibiotics, wound care, prior to discharge home alone. The patient is a 58 year old Male with below past medical history presented to [facility] Emergency Department 01/07/2019 with right diabetic foot ulcer with redness. 01/07/2019 X-ray right foot, heel ulcer without osteomyelitis. advanced mid foot arthritis, suspect neuropathic joint. WBC 12.8, Hemoglobin 11, Hematocrit 34, K 3.3 Cr 1.4, Glucose 449. Zosyn IV given for diabetic foot infection. Consult Dr. Schultz, debrided wound, sent cultures. 01/07/2019 Admit to Hospital. Broad spectrum IV antibiotics for right foot infection. Insulin for sugar control. 01/07/2019 Arterial doppler showed right leg occluded posterior tibial, mid peroneal. Mild stenosis SFA, anterior tibial artery. 01/08/2019 MRI right foot, right heel osteomyelitis. Right peroneal longus tenosynovitis. 01/10/2019 Zosyn IV, Vancomycin IV right heel osteomyelitis. 01/10/2019 Dr. Pringle MSSA PCR +, wound culture growing Serratia, Enterococcus, Staph, GPR. Continue Vancomycin, Zosyn for now. 01/12/2019 Dr. Hurtado performed balloon angioplasty right anterior tibial into popliteal artery, Balloon angioplasty right proximal anterior tibial artery. 01/12/2019 Dr. Pringle recommends 6 weeks of IV Vancomycin, IV Ceftriaxone, PO Flagyl thru 02/17/2019. 01/13/2019 Dr. Schultz performed muscle, subcutaneous excisional debridement right heel with versa jet, Bone biopsy right heel. 01/14/2019 Bone biopsy growing GNR. A1c 12.3, Lantus 35 units twice daily, Humalog 15 units with meals. 01/14/2019 Admit to TCU with debility, here for rehabilitation, strengthening, intravenous antibiotics, wound care, prior to discharge home alone. Past Medical History Past Medical History (Chronic Problems): Chronic Problems (Last Reviewed 01/08/19 @ 18:04 by Ryan Hurtado MD) Peripheral arterial occlusive disease (Chronic) Chronic kidney disease (Chronic) Diabetic polyneuropathy (Chronic) Sleep apnea (Chronic) Type 2 diabetes mellitus with diabetic polyneuropathy (Chronic) Ulcer of right foot with fat layer exposed (Chronic) PAD (peripheral artery disease) (Chronic) Amputation of left lower extremity below knee (Chronic) History of myocardial infarction (Chronic) Chronic kidney disease, stage III (moderate) (Chronic) HTN (hypertension) (Chronic) Heart disease (Chronic) Diabetes (Chronic) Benign hypertension (Chronic) Chronic kidney disease, stage III (moderate) (Chronic) Type 2 diabetes mellitus (Chronic) Gastroesophageal reflux disease (Chronic) Obesity (Chronic) History of CHF (congestive heart failure) (Chronic) Obstructive sleep apnea syndrome (Chronic) Chronic ulcer of right leg with necrosis of muscle (Chronic) Type 2 diabetes mellitus with diabetic polyneuropathy (Chronic) Other specified peripheral vascular diseases (Chronic) Localized edema (Chronic) Delayed wound healing (Chronic) Medical History: Medical History (Last Reviewed 01/08/19 @ 18:04 by Ryan Hurtado MD) History of myocardial infarction (Chronic) I25.2 Stroke (Resolved) I63.9 HTN (hypertension) (Chronic) I10 Heart disease (Chronic) I51.9 Diabetes (Chronic) E11.9 Allergies No Known Allergies Allergy (Verified 01/07/19 11:22) Home Medications: Ambulatory Orders Medication Instructions Recorded lisinopril 20 mg tablet 20 mg PO DAILY #90 tab 10/19/18 furosemide 40 mg tablet 40 mg PO DAILY 12/09/18 Clopidogrel Bisulfate [Clopidogrel] 75 mg PO DAILY 12/31/18 Gabapentin [Neurontin] 300 mg PO TID 12/31/18 Terazosin HCl 2 mg PO BID 12/31/18 Venlafaxine HCl [Venlafaxine HCl 75 mg PO DAILY 12/31/18 ER] Aspirin E.C. [Ecotrin] 81 mg PO DAILY@0800 01/07/19 Atorvastatin Calcium 40 mg PO QHS 01/07/19 Esomeprazole Magnesium 20 mg PO DAILY 01/07/19 carvedilol 12.5 mg tablet 12.5 mg PO BID #180 tab 01/07/19 Ceftriaxone 2 gm IV Q24 38 Days #38 vial 01/12/19 Vancomycin IV 750 mg IV Q12H 38 Days #76 vial 01/12/19 metroNIDAZOLE [Flagyl] 500 mg PO TID 40 Days #120 tab 01/12/19 Acetaminophen [Tylenol Tablet] 650 mg PO Q6H PRN PRN tab 01/14/19 Enoxaparin [Lovenox] 40 mg SUBCUT DAILY@1000 syringe 01/14/19 Insulin Glargine [Lantus SoloStar 35 units SUBCUT BID pen 01/14/19 Pen] Insulin Lispro [Humalog KwikPen] 15 unit SUBCUT 0800,1200,1700 01/14/19 insuln.pen Meclizine HCl [Antivert] 25 mg PO TID PRN PRN tab 01/14/19 Melatonin 3 mg PO QHS PRN PRN tab 01/14/19 Oxycodone [Oxyir] 5 mg PO Q6H PRN 3 Days #12 tab 01/14/19 Senna/Docusate Sodium [Senokot-S] 2 tab PO DAILY PRN PRN tab 01/14/19 Surgical History: Surgical History (Last Reviewed 01/08/19 @ 18:04 by Ryan Hurtado MD) History of heart bypass surgery Z95.1 Status post left foot surgery Z98.890 2018, ulcer Surgical History: appendectomy, coronary bypass surgery - x 4., - - Left below the knee amputation. Psychiatric History: Depression Lives: Alone Smoking Status: Former smoker Tobacco Use: Non-smoker Alcohol: None Drugs: None - *Family History Maternal Family History: Family History (Last Reviewed 01/08/19 @ 18:04 by Ryan Hurtado MD) Mother Heart disease Diabetes Father Heart disease Cancer History Items: No pertinent history Paternal Family History: Family History (Last Reviewed 01/08/19 @ 18:04 by Ryan Hurtado MD) Mother Heart disease Diabetes Father Heart disease Cancer History Items: No pertinent history Review of Systems Constitutional: Denies: Chills, Fever, Weight Change HEENT: Denies: Head Aches, Sinus Congestion, Sinus Drainage Cardiovascular: Denies: Chest Pain, Palpitations Respiratory: Denies: Cough, Shortness of breath at rest, Sputum production Gastrointestinal: Denies: Abdominal Pain, Nausea, Vomiting Genitourinary: Denies: Dysuria Musculoskeletal: Denies: Joint Pain, Joint Tenderness Skin: Denies: Rash, Wounds Neurological: Denies: Numbness, Tingling, Focal weakness Psychiatric: Denies: Anxiety, Depression, Homicidal Ideations, Suicidal Ideations Hematologic/ Lymphatic: Denies: Easy Bruising, Easy Bleeding VTE Information - Inpt Only VTE Present on Admission: No VTE Mechan Device Prophylaxis: Knee High JEANNE Hose VTE Pharm Prophylaxis ordered?: Yes Patient Problems: Active and Suspected Problems (Last Reviewed 01/08/19 @ 18:04 by Ryan Hurtado MD) Debility (Acute) Ulcer of right foot due to type 2 diabetes mellitus (Acute) Acute osteomyelitis of right calcaneus (Acute) Osteomyelitis (Acute) Gangrene (Acute) - Physical Exam General: Alert, Oriented x3, Cooperative HEENT: Atraumatic, PERRLA, EOMI, Normocephalic Neck: Supple, No JVD, Negative Carotid Bruits Lungs: Clear to auscultation, Normal air movement Cardiovascular: Regular rate, No murmurs Abdomen: Bowel Sounds Present, Soft, Non Tender Extremities: No edema, Capillary Refill Less than 3 Seconds, - - Left BKA. Skin: No rashes, No breakdown, - - Right lower extremity dressed. Musculoskeletal: No Tenderness to Palpation of Joints or Extremities Neurological: Cranial nerves II-XII grossly intact Psych/Mental Status: Normal Affect, Appropriate Body Mass Index (BMI) 34.7 Assessment/Plan All Active Problems (Last Reviewed 01/08/19 @ 18:04 by Ryan Hurtado MD) Debility (Acute) Ulcer of right foot due to type 2 diabetes mellitus (Acute) Acute osteomyelitis of right calcaneus (Acute) Osteomyelitis (Acute) Gangrene (Acute) Chronic ulcer of left foot with necrosis of muscle (Resolved) Ulcer of right foot with fat layer exposed (Acute) Puncture wound (Resolved) Lymphangitis, acute, lower leg (Resolved) Stroke (Resolved) Ulcer of right lower extremity with fat layer exposed (Resolved) MRSA (methicillin resistant staph aureus) culture positive (Resolved) Malnutrition (Resolved) Cellulitis of right leg (Acute) 58 year old male with below past medical history hospitalized for right heel osteomyelitis, underwent right lower extremity angioplasty for peripheral artery occlusive disease 01/12/[address] Hurtado, complicated by poor controlled Type 2 Diabetes, admitted to TCU with debility, here for rehabilitation, strengthening, intravenous antibiotics, wound care, prior to discharge home alone. * Debility - PT/OT. * Pain - Tylenol 1000MG Q6H PRN pain (1-3), Oxycodone 5MG Q6H PRN pain (4-10) * Bowel - Miralax 17GM daily, Senna/colace 2 tablets BID, Dulcolax 10MG daily PRN. * Pneumonia vaccination - Administer Prevnar 13 and/or Pneumovax 23 as necessary. * DVT prophylaxis - Lovenox 40MG SC daily. * Hypertension - Coreg 12.5MG BID, Lisinopril 20MG daily. * Edema - Lasix 40MG daily. * Coronary Artery Disease - Coreg 12.5MG BID, Lisinopril 20MG daily, Plavix 75MG daily, Aspirin 81MG daily. * Peripheral arterial occlusive disease - s/p angioplasty right lower extremity, Plavix 75MG daily, Aspirin 81MG daily. * Diabetic polyneuropathy - Gabapentin 300MG TID. * BPH - Terazosin 2MG BID. * Depression - Venlafaxine 75MG daily. * Hyperlipidemia - Atorvastatin 40MG QHS. * GERD - Esomeprazole 20MG daily. * Right heel osteomyelitis - Ceftriaxone 2GM IV Q24H, Vancomycin 750MG IV Q12H, Flagyl 500MG TID, stop date 02/18/[address] Pringle. * Diabetes Mellitus II - Lantus 35 units twice daily, Humalog 15 units TID with meals, monitor blood sugars. * Vertigo - Meclizine 25MG TID PRN. * Insomnia - Melatonin 3MG QHS PRN.
[2019-01-14] MEDS: Bisacodyl 5 MG Tablet 10 MG PO (20:49)
[2019-01-14] MEDS: oxyCODONE 5 MG Tablet PO (20:50)
[2019-01-14 21:26] LABS: Bedside Glucose 319 mg/dL (70-110)
--- NOTE | 2019-01-14 21:42 | PCM.RX.CS ---
Consult Pharmacy has been consulted to manage selected antiobiotic: Vancomycin Type of Consult: Follow-up Suspected Infection: Skin/Soft tissue Prior Doses of Antibiotics Received/Current Regimen: Medications Vancomycin HCl 750 mg/ Sodium (Chloride) 265 mls @ 250 mls/hr IV Q12H ESTELA Weight used for dosin kg Estimated Creatinine Clearance: 80 Goal Trough: 10-15 mcg/mL Pharmacy Plan for Drug Dosing: Received order for pharmacy to continue dosing vancomycin IV. Continuing 750mg q12h dose from floor prior to transfer. Will draw trough level 01/16/19 @1630. Pharmacy Service will continue to monitor and adjust dosing as required. Follow-Up Labs: Trough Vancomycin Labs to be done on [date and time ordered]: 01/16/19 @1630
[2019-01-14] MEDS: Atorvastatin Calcium 40 MG Tablet PO (21:59)
[2019-01-14] MEDS: metroNIDAZOLE 500 MG Tablet PO (21:59)
[2019-01-15] MEDS: 0.9% NaCl Peripheral Flush Adult/Peds IV (05:02)
[2019-01-15] MEDS: 0.9% NaCl IVPB Med Flush (250 mL) 15 ML IV (05:02)
[2019-01-15 05:03] VITALS: BP 179/79; PULSE 72
[2019-01-15] MEDS: Carvedilol 12.5 MG Tablet PO ×2 (05:03→17:16)
[2019-01-15] MEDS: Lisinopril 20 MG Tablet PO (05:03)
[2019-01-15] MEDS: metroNIDAZOLE 500 MG Tablet PO ×3 (05:10→22:09)
[2019-01-15] MEDS: Polyethylene Glycol 3350 17 GM PACKET PO (05:10)
[2019-01-15] MEDS: Furosemide 40 MG Tablet PO (05:10)
[2019-01-15] MEDS: Doxazosin 1 MG Tablet 2 MG PO ×2 (05:10→17:16)
[2019-01-15] MEDS: Clopidogrel Bisulfate 75 MG Tablet PO (05:10)
[2019-01-15] MEDS: Senna/Docusate Sodium 1 Tablet 2 TABLET PO ×2 (05:10→17:17)
[2019-01-15] MEDS: Venlafaxine XR 75 MG Capsule PO (05:10)
[2019-01-15] MEDS: oxyCODONE 5 MG Tablet PO ×4 (05:13→22:07)
[2019-01-15 06:31] LABS: Bedside Glucose 149 mg/dL (70-110)
[2019-01-15 07:50] LABS: Absolute Lymphocyte Count 1.91 X10^3/uL (0.83-4.51); Absolute Neutrophil Count 10.6 X10^3/uL (2.0-7.7); Basophil# 0.06 X10^3/uL; Basophil% 0.4 % (0-1); Eosinophil# 0.21 X10^3/uL; Eosinophils% 1.5 % (0-5); Hematocrit 32.2 % (40-54); Lymphocyte # 1.91 X10^3/ul (4.0); Lymphocyte % 13.8 % (19-41); Mean Corp Hgb Conc 31.1 g/dL (32-36); Mean Corpuscular Hgb 27.2 pg (27.0-32.0); Mean Corpuscular Volume 87.5 fL (80-94); Mean Platelet Vol. 10.3 fl (6.2-12.0); Monocyte# 0.98 X10^3/uL; Monocyte% 7.1 % (0-10); NRBC Flagged by Analyzer 0 % (0-5); Neutrophil # 10.62 X10^3/uL (2.7-7.7); Neutrophil % 76.8 % (47-70); Platelet Count 424 K/mm3 (150-450); Red Blood Count 3.68 M/mm3 (4.6-6.2); White Blood Count 13.8 K/mm3 (4.4-11.0)
[2019-01-15] MEDS: Aspirin 81 MG TAB.CHEW PO (08:10)
[2019-01-15] MEDS: Insulin Lispro 100 UNIT/ML INSULN.PEN 15 UNIT SC ×3 (08:10→17:21)
[2019-01-15] MEDS: Gabapentin 300 MG Capsule PO ×3 (08:10→17:15)
[2019-01-15 08:14] LABS: Anion Gap 8 (5-15); BUN 12 mg/dL (7-18); BUN/Creat Ratio 13.2 RATIO (10-20); Calcium,Total 8.1 mg/dL (8.5-10.1); Chloride 106 mmol/L (98-107); Creatinine, Serum 0.91 mg/dL (0.70-1.30); EST Glomerular Filtration Rate 91 mL/min (>60); Est Glom Filt Rate - Afr Amer 110 mL/min (>60); Glucose 146 mg/dL (74-106); Potassium 3.9 mmol/L (3.5-5.1); Sodium Level 141 mmol/L (136-145)
[2019-01-15] MEDS: Enoxaparin 40 MG/0.4 ML Syringe SC (11:15)
[2019-01-15] MEDS: Tuberculin,Purif.prot.deriv. 50 TU/ML Vial 5 ML ID (11:15)
[2019-01-15 11:41] LABS: Bedside Glucose 106 mg/dL (70-110)
[2019-01-15] MEDS: Pantoprazole Sodium 40 MG Tablet PO (13:06)
[2019-01-15 16:00] VITALS: BP 161/90; PULSE 78; RESP 18; TEMP 36.6; O2SAT 98
[2019-01-15 16:51] LABS: Bedside Glucose 147 mg/dL (70-110)
[2019-01-15] MEDS: Bisacodyl 5 MG Tablet 10 MG PO (17:30)
[2019-01-15 20:56] LABS: Bedside Glucose 103 mg/dL (70-110)
[2019-01-15] MEDS: Atorvastatin Calcium 40 MG Tablet PO (22:09)
[2019-01-16] MEDS: 0.9% NaCl Peripheral Flush Adult/Peds IV ×2 (04:22→10:05)
[2019-01-16] MEDS: Enoxaparin 40 MG/0.4 ML Syringe SC (04:23)
[2019-01-16] MEDS: metroNIDAZOLE 500 MG Tablet PO ×3 (04:23→21:28)
[2019-01-16] MEDS: Carvedilol 12.5 MG Tablet PO ×2 (04:23→18:01)
[2019-01-16] MEDS: Clopidogrel Bisulfate 75 MG Tablet PO (04:23)
[2019-01-16] MEDS: Doxazosin 1 MG Tablet 2 MG PO ×2 (04:23→18:02)
[2019-01-16] MEDS: Polyethylene Glycol 3350 17 GM PACKET PO (04:23)
[2019-01-16] MEDS: Pantoprazole Sodium 40 MG Tablet PO (04:23)
[2019-01-16] MEDS: Senna/Docusate Sodium 1 Tablet 2 TABLET PO ×2 (04:24→18:01)
[2019-01-16] MEDS: Lisinopril 20 MG Tablet PO (04:24)
[2019-01-16] MEDS: Venlafaxine XR 75 MG Capsule PO (04:28)
[2019-01-16] MEDS: Furosemide 40 MG Tablet PO (04:29)
--- NOTE | 2019-01-16 07:46 | PN_ITS ---
Patient Problems: Active and Suspected Problems (Last Reviewed 01/08/19 @ 18:04 by Ryan Hurtado MD) Debility (Acute) Ulcer of right foot due to type 2 diabetes mellitus (Acute) Acute osteomyelitis of right calcaneus (Acute) Subjective: This 58-year-old male with significant past medical history of diabetes, peripheral vascular disease, and multiple other comorbidities was seen bedside this morning postoperative day #3 for debridement of devitalized and infected eschar to the right heel with additional calcaneus bone biopsy. He denies fever, chill, nausea, vomiting, chest pain, shortness of breath, calf pain, urinary retention. He does report continued constipation and has not had a bowel movement in at least 5 days. His foot pain is decreased and he has been persistent with keeping pressure off of the site. - Physical Exam General: Alert, Oriented x3, Cooperative HEENT: Atraumatic Extremities: No cyanosis, No edema, Capillary Refill Less than 3 Seconds - Right foot all digits. The digits are also warm to touch, Diminished Peripheral Pulses Skin: Ulcer/ Wound - wound VAC is in place to the right heel with no leaks noted. There is no peripheral streaking, redness, bogginess on palpation, or o nasim. This is secured in place with a Kerlix and an Dre wrap. His offloading pillow is in place and he is laying on his side to avoid direct pressure to the ulcer site Musculoskeletal: No Tenderness to Palpation of Joints or Extremities, Muscle Wasting Neurological: - - Lack of normal epicritic sensation to light touch is consistent with neuropathy status Psych/Mental Status: Normal Affect, Appropriate Vital Signs Temp Pulse Resp BP Pulse Ox 97.9 F 78 18 161/90 H 98 01/15/19 16:00 01/15/19 16:00 01/15/19 16:00 01/15/19 16:00 01/15/19 16:00 Oxygen Delivery Method Room Air Weight: 97.976 kg Body Mass Index (BMI) 31.8 Intake and Output for Last 24 Hours 01/14/19 01/15/19 01/16/19 23:59 23:59 23:59 Intake Total 1211 / 1211 Output Total 450 / 450 Balance 1211 / 1211 -450 / -450 Laboratory Tests Past 24 Hrs 01/15/19 01/15/19 07:22 07:22 WBC 13.8 H RBC 3.68 L Hgb 10.0 L Hct 32.2 L MCV 87.5 MCH 27.2 MCHC 31.1 L RDW Std Deviation 39.0 RDW Coeff of Geraldine 12.0 Plt Count 424 MPV 10.3 Immature Gran % (Auto) 0.400 Neut % (Auto) 76.8 H Lymph % (Auto) 13.8 L Giles % (Auto) 7.1 Eos % (Auto) 1.5 Baso % (Auto) 0.4 Absolute Neuts (auto) 10.6 H Absolute Lymphs (auto) 1.91 Nucleated RBC % 0 Sodium 141 Potassium 3.9 Chloride 106 Carbon Dioxide 27.0 Anion Gap 8 BUN 12 Creatinine 0.91 Estim Creat Clear Calc 87.40 Est GFR (MDRD) Af Amer 110 Est GFR (MDRD) Non-Af 91 BUN/Creatinine Ratio 13.2 Glucose 146 H Calcium 8.1 L POC Glucose 01/15/19 01/15/19 01/15/19 20:52 16:45 11:37 POC Glucose 103 147 H 106 Medical Necessity - Tobacco Use Smoking Status: Former smoker Tobacco Use: Non-smoker Assessment/Plan All Active Problems (Last Reviewed 01/08/19 @ 18:04 by Ryan Hurtado MD) Debility (Acute) Ulcer of right foot due to type 2 diabetes mellitus (Acute) Acute osteomyelitis of right calcaneus (Acute) Osteomyelitis (Acute) Gangrene (Acute) Chronic ulcer of left foot with necrosis of muscle (Resolved) Ulcer of right foot with fat layer exposed (Acute) Puncture wound (Resolved) Lymphangitis, acute, lower leg (Resolved) Stroke (Resolved) Ulcer of right lower extremity with fat layer exposed (Resolved) MRSA (methicillin resistant staph aureus) culture positive (Resolved) Malnutrition (Resolved) Cellulitis of right leg (Acute) -Severe peripheral arterial disease right lower extremity with recent heel ulcer/necrosis gangrene status post vascular and podiatry surgical intervention -POD #3 right heel soft tissue excisional debridement with calcaneus bone biopsy -Cellulitis right heel, resolved -Osteomyelitis right calcaneus -Diabetes, peripheral neuropathy -Left BKA -Other comorbidities -Constipation I reviewed his case. He is afebrile and his vital signs are stable. WBC at 13.8. He had a successful vascular surgery procedure performed earlier this week and has maximal perfusion noted at this time. His surgically debrided ulcer site was evaluated there are no signs of infection or new tissue necrosis noted. His wound VAC remains intact this morning; continuous 150 mmHg and change every 72 hours. The bone biopsy obtained from surgery was sent to microbiology and pathology. Microbiology report from the bone specimen from surgery is growing out Serratia marcescens so far. The pathology findings are still pending. It is noted the preoperative ulcer culture had multi-organism growth including Serratia marcescens, enterococcus faecalis, coag negative staph, gram-positive christina, and anaerobic foci. Preoperative wound cultures have been reviewed and he continues on IV antibiotic therapy (vancomycin, ceftria xone, Flagyl until 02/18/2019) per infectious disease recommendations. He was advised to remain non-weightbearing right heel. Keep right heel offloaded at all times. Medical management, constipation management, and DVT prophylaxis per primary team is greatly appreciated. To continue Dulcolax for constipation. To continue complete rehabilitation program on the transitional care unit. The podiatry team will continue to follow weekly while in the transitional care unit. Please do not hesitate to call if you have any questions. Beulah Schultz DPM, [facility] [phone]
[2019-01-16] MEDS: Aspirin 81 MG TAB.CHEW PO (08:40)
[2019-01-16] MEDS: Gabapentin 300 MG Capsule PO ×3 (08:40→18:02)
[2019-01-16] MEDS: oxyCODONE 5 MG Tablet PO ×4 (08:45→23:55)
[2019-01-16] MEDS: Insulin Lispro 100 UNIT/ML INSULN.PEN 15 UNIT SC ×2 (08:51→18:02)
--- NOTE | 2019-01-16 09:20 | NURSING ---
IN TO CHANGE PT DRESSING.
[2019-01-16] MEDS: 0.9% NaCl IVPB Med Flush (250 mL) 15 ML IV (10:08)
[2019-01-16 11:27] LABS: Bedside Glucose 154 mg/dL (70-110)
[2019-01-16 11:27] LABS: Bedside Glucose 131 mg/dL (70-110)
[2019-01-16 11:27] LABS: Bedside Glucose 96 mg/dL (70-110)
--- NOTE | 2019-01-16 12:12 | NURSING ---
PT REFUSED LUNCH, INSULIN NOT GIVEN,PER MADONNARN
--- NOTE | 2019-01-16 13:10 | NURSING ---
PT COMPLAINED TO THIS NURSE OF A STOMACH ACH AND STATED I HAVEN'T HAD A BM. PRN WAS GIVEN YESTERDAY. REPORTED TO JYOTI PEACOCK
[2019-01-16 15:28] VITALS: BP 141/84; PULSE 75; RESP 18; TEMP 36.7; O2SAT 97
[2019-01-16 16:51] LABS: Bedside Glucose 210 mg/dL (70-110)
[2019-01-16] MEDS: Electrolyte Solution/Peg's 4000 ML 1000 ML PO (17:47)
[2019-01-16 18:12] LABS: Erythrocyte Sedimentation Rate 72 mm/hr (0-20)
[2019-01-16 18:54] LABS: Vancomycin, Trough Level 12.3 ug/mL (5.0-15.0)
[2019-01-16 20:46] LABS: Bedside Glucose 191 mg/dL (70-110)
[2019-01-16] MEDS: Atorvastatin Calcium 40 MG Tablet PO (21:28)
[2019-01-17] MEDS: oxyCODONE 5 MG Tablet PO ×4 (05:32→21:44)
[2019-01-17] MEDS: 0.9% NaCl Peripheral Flush Adult/Peds IV ×3 (05:35→21:48)
[2019-01-17] MEDS: metroNIDAZOLE 500 MG Tablet PO ×3 (05:36→21:45)
[2019-01-17] MEDS: Furosemide 40 MG Tablet PO (05:36)
[2019-01-17] MEDS: Lisinopril 20 MG Tablet PO (05:36)
[2019-01-17] MEDS: Clopidogrel Bisulfate 75 MG Tablet PO (05:36)
[2019-01-17] MEDS: Venlafaxine XR 75 MG Capsule PO (05:36)
[2019-01-17] MEDS: Pantoprazole Sodium 40 MG Tablet PO (05:36)
[2019-01-17] MEDS: Enoxaparin 40 MG/0.4 ML Syringe SC (05:37)
[2019-01-17] MEDS: Senna/Docusate Sodium 1 Tablet 2 TABLET PO ×2 (05:37→17:09)
[2019-01-17] MEDS: Polyethylene Glycol 3350 17 GM PACKET PO (05:37)
[2019-01-17] MEDS: Carvedilol 12.5 MG Tablet PO ×2 (05:37→17:09)
[2019-01-17] MEDS: Doxazosin 1 MG Tablet 2 MG PO ×2 (05:37→17:09)
[2019-01-17 06:20] LABS: Bedside Glucose 89 mg/dL (70-110)
[2019-01-17] MEDS: Aspirin 81 MG TAB.CHEW PO (08:40)
[2019-01-17] MEDS: Insulin Lispro 100 UNIT/ML INSULN.PEN 15 UNIT SC ×2 (08:40→11:48)
[2019-01-17] MEDS: Gabapentin 300 MG Capsule PO ×3 (08:41→17:09)
--- NOTE | 2019-01-17 10:01 | NURSING ---
wound photo: right heel
[2019-01-17 10:51] LABS: Bedside Glucose 115 mg/dL (70-110)
--- NOTE | 2019-01-17 14:19 | PHA.CONS_ITS ---
<Gemini Qiu M - Last Filed: 01/17/19 14:19> Progress Note - Pharmacy Subjective: TCU ADMISSION Objective: Allergies No Known Allergies Allergy (Verified 01/07/19 11:22) Current Medications Generic Name Dose Route Start Last Admin Trade Name Freq PRN Reason Stop Dose Admin Acetaminophen 1,000 mg 01/14/19 20:26 Tylenol PO Q6H PRN Pain Score 1-3/10 Aspirin 81 mg 01/15/19 08:00 01/17/19 08:40 Aspirin, Baby PO 81 mg DAILY@0800 ESTELA Administration Atorvastatin Calcium 40 mg 01/14/19 22:00 01/16/19 21:28 Lipitor PO 40 mg QHS ESTELA Administration Bisacodyl 10 mg 01/14/19 20:27 01/15/19 17:30 Dulcolax PO 10 mg DAILY PRN Administration Constipation Carvedilol 12.5 mg 01/15/19 06:00 01/17/19 05:37 Coreg PO 12.5 mg BID ESTELA Administration Clopidogrel Bisulfate 75 mg 01/15/19 06:00 01/17/19 05:36 Plavix PO 75 mg DAILY ESTELA Administration Doxazosin Mesylate 2 mg 01/15/19 06:00 01/17/19 05:37 Cardura PO 2 mg BID ESTELA Administration Enoxaparin Sodium 40 mg 01/15/19 10:00 01/17/19 05:37 Lovenox SC 40 mg DAILY ESTELA Administration Furosemide 40 mg 01/15/19 06:00 01/17/19 05:36 Lasix PO 40 mg DAILY ESTELA Administration Gabapentin 300 mg 01/15/19 07:45 01/17/19 11:48 Neurontin PO 300 mg TIDCM ESTELA Administration Heparin Sodium (Beef Lung) 50 units 01/16/19 18:35 IV UD PRN HEPARIN FLUSH Ceftriaxone Sodium 2 gm/ 50 mls @ 100 mls/hr 01/15/19 10:00 01/17/19 10:24 Sodium Chloride IV 02/18/19 10:00 Infused Q24 ESTELA Infusion Vancomycin IV Pharmacy to Dose 250 mls @ 250 mls/hr 01/14/19 20:30 1 ea/ Sodium Chloride IV PRN PRN Vancomycin HCl 750 mg/ Sodium 265 mls @ 250 mls/hr 01/15/19 05:00 01/17/19 06:36 Chloride IV Infused Q12H ESTELA Infusion Sodium Chloride 250 mls @ 15 mls/hr 01/15/19 03:20 01/17/19 06:43 IV 0 mls/hr .[id number] PRN Infusion SALINE FLUSH Insulin Glargine 35 units 01/14/19 22:00 01/17/19 05:58 Lantus ([facility]) SC 35 units BID ESTELA Administration Insulin Human Lispro 15 unit 01/16/19 07:45 01/17/19 11:48 Humalog Kwikpen ([facility]) SC 15 u TIDCM ESTELA Administration Lisinopril 20 mg 01/15/19 06:00 01/17/19 05:36 Zestril PO 20 mg DAILY ESTELA Administration Meclizine HCl 25 mg 01/14/19 20:30 Antivert PO TID PRN PRN dizzyness Melatonin 3 mg 01/14/19 20:33 Melatonin PO QHS PRN SLEEP Metronidazole 500 mg 01/14/19 22:00 01/17/19 14:02 Flagyl PO 500 mg TID ESTELA Administration Nutritional Formula 1 packet 01/15/19 08:00 01/17/19 08:41 Prashant - [place] Flavor PO 1 packet BIDCM ESTELA Administration Oxycodone HCl 5 mg 01/15/19 11:03 01/17/19 14:08 Oxyir PO 5 mg Q4H PRN PRN Administration Pain Score 4-10/10 Pantoprazole Sodium 40 mg 01/15/19 11:30 01/17/19 05:36 Protonix PO 40 mg DAILY ESTELA Administration Polyethylene Glycol 17 gm 01/15/19 06:00 01/17/19 05:37 Miralax PO 17 gm DAILY ESTELA Administration Senna 2 tablet 01/14/19 20:34 Senokot PO DAILY PRN PRN CONSTIPATION Senna/Docusate Sodium 2 tablet 01/15/19 06:00 01/17/19 05:37 Senokot-S, Jacquelyn-Colace PO 2 tablet BID ESTELA Administration Sodium Chloride 5 - 15 ml 01/15/19 03:20 01/17/19 05:35 IV 10 ml UD PRN Administration SALINE FLUSH Sodium Chloride 10 - 40 ml 01/16/19 18:35 IV UD PRN PICC FLUSH Tuberculin PPD 5 tu 01/22/19 10:00 Tubersol, Aplisol, Ppd ID 01/22/19 10:01 X1 ONE Venlafaxine HCl 75 mg 01/15/19 06:00 01/17/19 05:36 Effexor Xr PO 75 mg DAILY ESTELA Administration Problem List (Last Reviewed 01/08/19 @ 18:04 by Ryan Hurtado MD) Debility (Acute) Ulcer of right foot due to type 2 diabetes mellitus (Acute) Acute osteomyelitis of right calcaneus (Acute) Peripheral arterial occlusive disease (Chronic) Chronic kidney disease (Chronic) Diabetic polyneuropathy (Chronic) Sleep apnea (Chronic) Vital Signs Temp Pulse Resp BP Pulse Ox 98.1 F 75 18 141/84 H 97 01/16/19 15:28 01/16/19 15:28 01/16/19 15:28 01/16/19 15:28 01/16/19 15:28 Oxygen Delivery Method Room Air Weight: 97.976 kg Body Mass Index (BMI) 31.8 Sodium 141 mmol/L (136-145) 01/15/19 07:22 Potassium 3.9 mmol/L (3.5-5.1) 01/15/19 07:22 Chloride 106 mmol/L (98-107) 01/15/19 07:22 Carbon Dioxide 27.0 mmol/L (21.0-32.0) 01/15/19 07:22 Anion Gap 8 (5-15) 01/15/19 07:22 BUN 12 mg/dL (7-18) 01/15/19 07:22 Creatinine 0.91 mg/dL (0.70-1.30) 01/15/19 07:22 Est GFR (MDRD) Af Amer 110 mL/min (>60) 01/15/19 07:22 Est GFR (MDRD) Non-Af 91 mL/min (>60) 01/15/19 07:22 BUN/Creatinine Ratio 13.2 RATIO (10-20) 01/15/19 07:22 Glucose 146 mg/dL (74-106) H 01/15/19 07:22 Vancomycin Trough 12.3 ug/mL (5.0-15.0) 01/16/19 17:50 Assessment/Plan: 1. Pain: Tylenol 1000MG Q6H PRN pain (1-3), Oxycodone 5MG Q6H PRN pain (4-10). Please continue to monitor for increased or decreased pain. 2. DVT prophylaxis: Lovenox 40MG SC daily. Please continue to monitor renal function, and monitor for S/S bleeding/bruising 3. Hypertension: Coreg 12.5MG BID, Lisinopril 20MG daily. Please continue to monitor electrolytes, BP, and pulse 4. Edema: Lasix 40MG daily. Please continue to monitor for increased/decreased swelling in the extremities, electrolytes, and renal function 5. Coronary Artery Disease: Coreg 12.5MG BID, Lisinopril 20MG daily, Plavix 75MG daily, Aspirin 81MG daily. Please continue to monitor for S/S bleeding, BP, pulse, and electrolytes 6. Diabetes Mellitus II: Lantus 35 units twice daily, Humalog 15 units TID with meals. Please continue to monitor A1C, Blood glucose, and for S/S of hyper/hypoglycemia 7. Diabetic polyneuropathy: Gabapentin 300MG TID. Please continue to monitor for increased/decreased symptoms 8. BPH: Doxazosin 2mg PO BID. Please continue to monitor for increased/decreased symptoms of BPH 9. Hyperlipidemia - Atorvastatin 40MG QHS. Last lipid panel completed 06/29. Please continue to monitor and order lipid panel as clinically indicated 10. GERD: Protonix 40MG daily. Please continue to monitor for increased/decreased symptoms of GERD 11. Right heel osteomyelitis: Ceftriaxone 2GM IV Q24H, Vancomycin 1250MG IV Q12H, Flagyl 500MG PO TID. Please continue to monitor for S/S of improvement/worsening infection. Stop date 02/18/2019 per ID Service 12. Vertigo - Meclizine 25MG TID PRN. Please continue to monitor for increased/decreased symptoms of vertigo 13. Insomnia - Melatonin 3MG QHS PRN. Please continue to monitor for insomnia or excessive lethargy Psychotropic Medications: *1. Depression: Venlafaxine 75MG daily. Please consider a GDR by 07/2019 if clinically appropriate Unnecessary Medications: 1. Senna 2T PO BID BID PRN. The patient is already on Senna/Docusate 2T PO BID. 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 Please continue to monitor for increased/decreased bowel movements or diarrhea Date of Note:: 01/17/19 - Provider Comments Provider responsibility: Provider responsible to enter orders to implement recommendations <Konrad,True Uriostegui - Last Filed: 01/17/19 17:05> Progress Note - Pharmacy Subjective: [] Objective: Allergies No Known Allergies Allergy (Verified 01/07/19 11:22) Current Medications Generic Name Dose Route Start Last Admin Trade Name Freq PRN Reason Stop Dose Admin Acetaminophen 1,000 mg 01/14/19 20:26 Tylenol PO Q6H PRN Pain Score 1-3/10 Aspirin 81 mg 01/15/19 08:00 01/17/19 08:40 Aspirin, Baby PO 81 mg DAILY@0800 ESTELA Administration Atorvastatin Calcium 40 mg 01/14/19 22:00 01/16/19 21:28 Lipitor PO 40 mg QHS ESTELA Administration Bisacodyl 10 mg 01/14/19 20:27 01/15/19 17:30 Dulcolax PO 10 mg DAILY PRN Administration Constipation Carvedilol 12.5 mg 01/15/19 06:00 01/17/19 05:37 Coreg PO 12.5 mg BID ESTELA Administration Clopidogrel Bisulfate 75 mg 01/15/19 06:00 01/17/19 05:36 Plavix PO 75 mg DAILY ESTELA Administration Doxazosin Mesylate 2 mg 01/15/19 06:00 01/17/19 05:37 Cardura PO 2 mg BID ESTELA Administration Enoxaparin Sodium 40 mg 01/15/19 10:00 01/17/19 05:37 Lovenox SC 40 mg DAILY ESTELA Administration Furosemide 40 mg 01/15/19 06:00 01/17/19 05:36 Lasix PO 40 mg DAILY ESTELA Administration Gabapentin 300 mg 01/15/19 07:45 01/17/19 11:48 Neurontin PO 300 mg TIDCM ESTELA Administration Heparin Sodium (Beef Lung) 50 units 01/16/19 18:35 IV UD PRN HEPARIN FLUSH Ceftriaxone Sodium 2 gm/ 50 mls @ 100 mls/hr 01/15/19 10:00 01/17/19 10:24 Sodium Chloride IV 02/18/19 10:00 Infused Q24 ESTELA Infusion Vancomycin IV Pharmacy to Dose 250 mls @ 250 mls/hr 01/14/19 20:30 1 ea/ Sodium Chloride IV PRN PRN Sodium Chloride 250 mls @ 15 mls/hr 01/15/19 03:20 01/17/19 06:43 IV 0 mls/hr .[id number] PRN Infusion SALINE FLUSH Vancomycin HCl 1,250 mg/ 275 mls @ 167 mls/hr 01/17/19 17:00 01/17/19 17:01 Sodium Chloride IV 167 mls/hr Q12H ESTELA Administration Insulin Glargine 35 units 01/14/19 22:00 01/17/19 16:57 Lantus ([facility]) SC Not Given BID [facility] Insulin Human Lispro 15 unit 01/16/19 07:45 01/17/19 16:30 Humalog Kwikpen ([facility]) SC Not Given TIDCM [facility] Lisinopril 20 mg 01/15/19 06:00 01/17/19 05:36 Zestril PO 20 mg DAILY ESTELA Administration Meclizine HCl 25 mg 01/14/19 20:30 Antivert PO TID PRN PRN dizzyness Melatonin 3 mg 01/14/19 20:33 Melatonin PO QHS PRN SLEEP Metronidazole 500 mg 01/14/19 22:00 01/17/19 14:02 Flagyl PO 500 mg TID [facility] Administration Nutritional Formula 1 packet 01/15/19 08:00 01/17/19 16:57 Prashant - [place] Flavor [facility] Oxy[facility]one HCl 5 mg 01/15/19 11:03 01/17/19 14:08 Oxyir PO 5 mg Q4H PRN PRN Administration Pain Score 4-10/10 Pantoprazole Sodium 40 mg 01/15/19 11:30 01/17/19 05:36 Protonix PO 40 mg DAILY [facility] Administration Polyethylene Glycol 17 gm 01/15/19 06:00 01/17/19 05:37 Miralax PO 17 gm DAILY ESTELA Administration Senna 2 tablet 01/14/19 20:34 Senokot PO DAILY PRN PRN CONSTIPATION Senna/Docusate Sodium 2 tablet 01/15/19 06:00 01/17/19 05:37 Senokot-S, Jacquelyn-Colace PO 2 tablet BID ESTELA Administration Sodium Chloride 5 - 15 ml 01/15/19 03:20 01/17/19 17:03 IV 10 ml UD PRN Administration SALINE FLUSH Sodium Chloride 10 - 40 ml 01/16/19 18:35 IV UD PRN PICC FLUSH Tuberculin PPD 5 tu 01/22/19 10:00 Tubersol, Aplisol, Ppd ID 01/22/19 10:01 X1 ONE Venlafaxine HCl 75 mg 01/15/19 06:00 01/17/19 05:36 Effexor Xr PO 75 mg DAILY ESTELA Administration Problem List (Last Reviewed 01/08/19 @ 18:04 by Ryan Hurtado MD) Debility (Acute) Ulcer of right foot due to type 2 diabetes mellitus (Acute) Acute osteomyelitis of right calcaneus (Acute) Peripheral arterial occlusive disease (Chronic) Chronic kidney disease (Chronic) Diabetic polyneuropathy (Chronic) Sleep apnea (Chronic) Vital Signs Temp Pulse Resp BP Pulse Ox 96.9 F L 69 18 155/78 H 97 01/17/19 15:17 01/17/19 15:17 01/17/19 15:17 01/17/19 15:17 01/17/19 15:17 Oxygen Delivery Method Room Air Weight: 97.976 kg Body Mass Index (BMI) 31.8 Sodium 141 mmol/L (136-145) 01/15/19 07:22 Potassium 3.9 mmol/L (3.5-5.1) 01/15/19 07:22 Chloride 106 mmol/L (98-107) 01/15/19 07:22 Carbon Dioxide 27.0 mmol/L (21.0-32.0) 01/15/19 07:22 Anion Gap 8 (5-15) 01/15/19 07:22 BUN 12 mg/dL (7-18) 01/15/19 07:22 Creatinine 0.91 mg/dL (0.70-1.30) 01/15/19 07:22 Est GFR (MDRD) Af Amer 110 mL/min (>60) 01/15/19 07:22 Est GFR (MDRD) Non-Af 91 mL/min (>60) 01/15/19 07:22 BUN/Creatinine Ratio 13.2 RATIO (10-20) 01/15/19 07:22 Glucose 146 mg/dL (74-106) H 01/15/19 07:22 Vancomycin Trough 12.3 ug/mL (5.0-15.0) 01/16/19 17:50 Assessment/Plan: Psychotropic Medications: Unnecessary Medications: Bowel Regimen: - Provider Comments Provider responsibility: Provider responsible to enter orders to implement recommendations Provider Comments to Recommendations by Pharmacy: Agree
--- NOTE | 2019-01-17 14:59 | PCM.RX.CS ---
Consult Pharmacy has been consulted to manage selected antiobiotic: Vancomycin Type of Consult: Follow-up Suspected Infection: Osteomyelitis Prior Doses of Antibiotics Received/Current Regimen: Has been on 750mg iv q12h. Labs: Sodium 141 mmol/L (136-145) 01/15/19 07:22 Potassium 3.9 mmol/L (3.5-5.1) 01/15/19 07:22 Chloride 106 mmol/L (98-107) 01/15/19 07:22 Carbon Dioxide 27.0 mmol/L (21.0-32.0) 01/15/19 07:22 Anion Gap 8 (5-15) 01/15/19 07:22 BUN 12 mg/dL (7-18) 01/15/19 07:22 Creatinine 0.91 mg/dL (0.70-1.30) 01/15/19 07:22 Est GFR (MDRD) Af Amer 110 mL/min (>60) 01/15/19 07:22 Est GFR (MDRD) Non-Af 91 mL/min (>60) 01/15/19 07:22 BUN/Creatinine Ratio 13.2 RATIO (-) 01/15/19 07:22 Glucose 146 mg/dL (74-106) H 01/15/19 07:22 Vancomycin Trough 12.3 ug/mL (5.0-15.0) 01/16/19 17:50 Weight used for dosin kg Estimated Creatinine Clearance: ~87ml/min Goal Trough: 15-20 mcg/mL Pharmacy Plan for Drug Dosing: Trough level 12.3 on 01.16.19. Discussed case with Dr. Pringle. Will increase goal range to 15-20mcg/ml and increase dose to 1250mg iv q12h. Another trough level has been ordered for before 4th dose of this new regimen. Pharmacy Service will continue to monitor and adjust dosing as required. Follow-Up Labs: Trough Vancomycin - 01.19.19 @0430 before 0500 dose
[2019-01-17 15:17] VITALS: BP 155/78; PULSE 69; RESP 18; TEMP 36.1; O2SAT 97
--- NOTE | 2019-01-17 15:17 | PCM.PN.ID ---
Patient Problems: Active and Suspected Problems (Last Reviewed 01/08/19 @ 18:04 by Ryan Hurtado MD) Debility (Acute) Ulcer of right foot due to type 2 diabetes mellitus (Acute) Acute osteomyelitis of right calcaneus (Acute) Subjective: Feeling ok, some foot pain, no fever, no n/v/d. - Physical Exam General: Alert, Cooperative, No apparent distress Lungs: Clear to auscultation, Normal air movement Cardiovascular: Regular rate, Regular Rhythm Abdomen: Soft, Non Tender, Non-Distended Skin: Ulcer/ Wound - reviewed photo Vital Signs Temp Pulse Resp BP Pulse Ox 98.1 F 75 18 141/84 H 97 01/16/19 15:28 01/16/19 15:28 01/16/19 15:28 01/16/19 15:28 01/16/19 15:28 Oxygen Delivery Method Room Air Weight: 97.976 kg Body Mass Index (BMI) 31.8 Intake and Output for Last 24 Hours 01/15/19 01/16/19 01/17/19 23:59 23:59 23:59 Intake Total 1211 / 1211 1063.5 / 1063.5 704.17 / 704.17 Output Total 450 / 450 Balance 1211 / 1211 613.5 / 613.5 704.17 / 704.17 Laboratory Tests Past 24 Hrs 01/16/19 01/16/19 17:50 17:50 ESR 72 H Vancomycin Trough 12.3 POC Glucose 01/17/19 01/17/19 01/16/19 10:40 05:57 20:37 POC Glucose 115 H 89 191 H 01/16/19 16:39 POC Glucose 210 H Medical Necessity - Tobacco Use Smoking Status: Former smoker Tobacco Use: Non-smoker Route of nutrition/ use of supplements: [] Nutritional Intake: [] IV Site: [] Brown Catheter: [] - Assessment/Plan Antibiotics: [] Assessment/Plan: [] Active and Suspected Problems (Last Reviewed 01/08/19 @ 18:04 by Ryan Hurtado MD) Debility (Acute) Ulcer of right foot due to type 2 diabetes mellitus (Acute) Acute osteomyelitis of right calcaneus (Acute) R heel osteo, gangrene with DM and PVD - MSSA pcr (+). Wound cx with serratia, enterococcus, CoNS, GPR. 11/1 narrowed abx to vanc/ceftriaxone/flagyl. Now s/p revascularization. Plan is for 6 weeks of iv vanc/ceftriaxone and po flagyl. Stop date 02/18/19. Weekly bmp, cbc, esr, and vanc trough while on abx. Now s/p OR debridement 01/13, bone cx with Serratia. Will follow
[2019-01-17 16:31] LABS: Bedside Glucose 61 mg/dL (70-110)
--- NOTE | 2019-01-17 16:31 | NURSING ---
4 0z oj given at this time.
--- NOTE | 2019-01-17 16:32 | NURSING ---
patient also requests bernie cracker and peanut butter. will recheck blood sugar around 1645
--- NOTE | 2019-01-17 16:55 | NURSING ---
Addendum entered by Misty Dumont 01/17/19 17:57: Dr Silvestre updated, insulin lantus adjusted. Original Note: Blood sugar now 66. PT requests cranberry juice. he is also eating peanut butter. will recheck blood sugar.
--- NOTE | 2019-01-17 17:14 | NURSING ---
blood sugar now 114.
[2019-01-17 17:16] LABS: Bedside Glucose 114 mg/dL (70-110)
[2019-01-17 17:20] LABS: Bedside Glucose 66 mg/dL (70-110)
[2019-01-17 20:36] LABS: Bedside Glucose 182 mg/dL (70-110)
[2019-01-17] MEDS: Atorvastatin Calcium 40 MG Tablet PO (21:45)
[2019-01-18] MEDS: oxyCODONE 5 MG Tablet PO ×3 (02:11→18:58)
[2019-01-18] MEDS: Furosemide 40 MG Tablet PO (05:04)
[2019-01-18] MEDS: Venlafaxine XR 75 MG Capsule PO (05:04)
[2019-01-18] MEDS: Pantoprazole Sodium 40 MG Tablet PO (05:04)
[2019-01-18] MEDS: Carvedilol 12.5 MG Tablet PO (05:04)
[2019-01-18] MEDS: metroNIDAZOLE 500 MG Tablet PO (05:04)
[2019-01-18] MEDS: Doxazosin 1 MG Tablet 2 MG PO (05:04)
[2019-01-18] MEDS: Clopidogrel Bisulfate 75 MG Tablet PO (05:04)
[2019-01-18] MEDS: Lisinopril 20 MG Tablet PO (05:04)
[2019-01-18] MEDS: Senna/Docusate Sodium 1 Tablet 2 TABLET PO (05:05)
[2019-01-18] MEDS: Enoxaparin 40 MG/0.4 ML Syringe SC (05:07)
[2019-01-18] MEDS: 0.9% NaCl PICC Flush IV ×3 (05:09→19:11)
[2019-01-18] MEDS: 0.9% NaCl IVPB Med Flush (250 mL) 167 ML IV (05:20)
[2019-01-18 06:36] LABS: Bedside Glucose 177 mg/dL (70-110)
[2019-01-18] MEDS: Insulin Lispro 100 UNIT/ML INSULN.PEN 15 UNIT SC (09:05)
--- NOTE | 2019-01-18 09:17 | NURSING ---
Pt c/o Protonix not helping acid reflux. Requesting to be put on Nexium 20mg that he was taking at home. Pt would also like to speak with Dr Silvestre. Reported to Misty MONTES.
--- NOTE | 2019-01-18 09:40 | NURSING ---
Pt not wanting to take scheduled Prashant, ASA and Gabapentin at this time d/t c/o acid reflux. Reported to Misty MONTES.
[2019-01-18 11:06] LABS: Bedside Glucose 167 mg/dL (70-110)
[2019-01-18] MEDS: 0.9% NaCl IVPB Med Flush (250 mL) 100 ML IV (11:15)
[2019-01-18] MEDS: Aspirin 81 MG TAB.CHEW PO (12:10)
[2019-01-18] MEDS: Gabapentin 300 MG Capsule PO (12:10)
--- NOTE | 2019-01-18 12:55 | NURSING ---
Pt BS prior to lunch was 167. Pt refused to eat lunch meal. Reported to Misty MONTES. Hold scheduled Vianca 15u.
--- NOTE | 2019-01-18 13:53 | NURSING ---
Talked with Dr Ascencio this am. Dr Ascencio plans to come this Thursday01/21/19 to assess and debride heel. staff to reapply the wound VAC after Dr Ascencio sees the patient. JYOTI Jay aware that this nurse will not be here that day so staff will apply the VAC.
--- NOTE | 2019-01-18 14:28 | NURSING ---
This nurse went in to pt's room and he was visibly upset with tears. Pt stated, I just found out that I am going to be in a fpc for the rest of my damn life! This nurse gave pt tissue to dry tears. Pt refused pills stating, I'm not taking no more pills...just ship me to the fpc. Reported to Misty MONTES.
--- NOTE | 2019-01-18 15:40 | PCA ---
When asked if income tax analyst could get vitals patient responded with No. Thinking patient was just being funny, this income tax analyst went to plug in the machine and at that point patient said Im serious. No vitals, no pills, nothing. Im done This income tax analyst left and reported to JYOTI Jay.
--- NOTE | 2019-01-18 15:40 | CASEMGMT ---
Social Work Patient and SW received call from [place] that Medicaid has put a restriction on waiver services from February to mid-April - which means no meals or aide resources available to pt at home. Medicaid would still be able to pay for pt at SNF for those 90 days. Spoke with pt to follow up on information - pt visibly and verbally upset with the news. Pt refusing medications and stated he will refused 5 pm IV ATB. Provided active listening and emotional support to pt. Pt mentioning he does not trust any one, people give him their word and it doesn't mean anything, he can't catch a break. Stated you have no idea what I have gone through in life. Offered verbal support and validated patient's feelings, and assured pt SW is here to help, not to imply understanding of situation. Pt stated he does not want to go to a [place] because he knows he will never leave - [place]. Pt wanted to be alone but agreed to have SW visit tomorrow morning to follow up. Renae Escalante, DIAGNOSTICS TECH [employer]Y [employer]ILDER
--- NOTE | 2019-01-18 16:32 | NURSING ---
This nurse went in to pt's room to tell him that he has a scheduled 1700 IV ATB that needs hung. This nurse asked pt if he is going to allow me to administer the ATB. Pt stated, No. This nurse told pt he needs his ATB's and asked if he knows what will happen if he doesn't let us administer them. Pt stated, Yes. My foot is going to get gangrene, fall off and I'll probably . No more medication. Reported to Misty MONTES.
--- NOTE | 2019-01-18 17:38 | NURSING ---
This nurse reapproached pt at this time and pt still refusing scheduled medications. Reported to Misty MONTES.
--- NOTE | 2019-01-18 17:49 | PCA ---
This mathematical engineer offered patient dinner tray and he refused. did not want to have it saved for later. RN notified
--- NOTE | 2019-01-18 17:50 | PCA ---
this log brander went to take AC Blood sugar and patient refused. Misty MONTES notified
--- NOTE | 2019-01-18 19:16 | NURSING ---
This nurse in to pt's room asking if he was willing to take his scheduled medications at this time. Pt agreed for this nurse to hang IV Vanc but would not agree to take any other medications, take his BS or insulins. Reported to Misty MONTES.
--- NOTE | 2019-01-18 19:45 | NURSING ---
This nurse reapproached pt at this time. This nurse encouraged to atleast let me take his BS if he was not going to take his medication. Pt refused again. Reported to Concha MONTES.
[2019-01-18] MEDS: 0.9% NaCl Peripheral Flush Adult/Peds IV (21:02)
--- NOTE | 2019-01-18 22:18 | NURSING ---
Resident refused all care provided by this nurse jason stated, that his body is given up and he will be going home with hospice. Rn aware
[2019-01-19] MEDS: oxyCODONE 5 MG Tablet PO ×2 (01:33→06:50)
[2019-01-19] MEDS: Pantoprazole Sodium 40 MG Tablet PO (06:44)
--- NOTE | 2019-01-19 06:54 | NURSING ---
Resident continues to refuse any care and some medication. Resident wouldn't allow lab to draw labs this morning so vancomycin was not given this morning. Per resident request he was given protonix and oxyir. Rn's aware
--- NOTE | 2019-01-19 08:29 | CASEMGMT ---
Social Work Physician notified SW pt is requesting home or SNF with hospice. Pt did agree to IV ATB dose last night, but is refusing treatment today. Spoke with pt - pt stated he slept on it and would no longer like to fight or have any treatment. Pt would like to discharge home with hospice services. Provided hospice list to pt and consulted with physician. Pt and physician agreeable to refer to [facility]. Referral made. Scheduled [facility] Van for 3 pm transport. Pt agreeable. Plan: DC home 01/19 with [facility] Renae Escalante MSW [employer]
--- NOTE | 2019-01-19 09:03 | NURSING ---
PT REFUSED ALL MEDS AND IV FLUID FROM THIS NURSE. PT ALSO REFUSED TO LET STAFF CHECK HIS BLOOD SUGAR.
--- NOTE | 2019-01-19 09:18 | NURSING ---
In room to change wound VAC dressing. pt states you don't need to change it. Go talk to Dr Silvestre. I'm done. I'm going home with Hospice. When asked the reason why patient changed his mind, he states I'm just done. Pt does not want to go to a longterm. He states that he is tired of all the insurance stuff. This nurse talked with Dr Silvestre and states pt is able to make up his own mind. The wound VAC dressing was removed and a wet to dry dressing was applied. covered with dry dressing, ABD pads, and kerlix. applied an DANE wrap and reapplied the heel boot. will call and notify Dr Ascencio as well.
--- NOTE | 2019-01-19 09:32 | DCINST_ITS ---
- Discharge Diagnoses Current Active Problems: Current Active and Chronic Problems (Last Reviewed 01/08/19 @ 18:04 by Ryan Hurtado MD) Debility (Acute) Ulcer of right foot due to type 2 diabetes mellitus (Acute) Acute osteomyelitis of right calcaneus (Acute) Peripheral arterial occlusive disease (Chronic) Chronic kidney disease (Chronic) Diabetic polyneuropathy (Chronic) Sleep apnea (Chronic) You will use the following diet at home:: No restrictions, Regular Your food should be the consistency of: Regular Your liquids should be the consistency of: Regular/Thin Discharge Activity: Return to Normal Activity, May Shower, Use Walker Weight Bearing Status: Weight bearing as tolerated Call your doctor if you observe: Fever of 101 or Higher, Inability to urinate, Inability to have a bowel movement, Shortness of breath, Chest pain, Uncontrolled pain Allergies/Adverse Reactions: Allergies No Known Allergies Allergy (Verified 01/07/19 11:22) Primary Care Physician: Reynaldo Lou DO [Primary Care Provider] - Please follow up with your Primary Care Physician in: As needed. Test Results: Test results from this visit will be discussed in further detail at your follow- up appointment, if applicable. Please Follow Up With: Beulah Schultz DPM When: As needed. Please Follow Up With: Ryan Hurtado MD When: As needed. Proposed Discharge Date: 01/19/19
--- NOTE | 2019-01-19 09:34 | DS.PCM_ITS ---
Discharge Date and Diagnosis - Problem List Patient Problems: Active and Suspected Problems (Last Reviewed 01/08/19 @ 18:04 by Ryan Hurtado MD) Debility (Acute) Ulcer of right foot due to type 2 diabetes mellitus (Acute) Acute osteomyelitis of right calcaneus (Acute) Date of Admission: 01/14/19 Date of Discharge: 01/19/19 - Primary Discharge Diagnosis Active and Suspected Problems (Last Reviewed 01/08/19 @ 18:04 by Ryan Hurtado MD) Debility (Acute) Ulcer of right foot due to type 2 diabetes mellitus (Acute) Acute osteomyelitis of right calcaneus (Acute) - Secondary Discharge Diagnosis Chronic Problems (Last Reviewed 01/08/19 @ 18:04 by Ryan Hurtado MD) Peripheral arterial occlusive disease (Chronic) Chronic kidney disease (Chronic) Diabetic polyneuropathy (Chronic) Sleep apnea (Chronic) Type 2 diabetes mellitus with diabetic polyneuropathy (Chronic) Ulcer of right foot with fat layer exposed (Chronic) PAD (peripheral artery disease) (Chronic) Amputation of left lower extremity below knee (Chronic) History of myocardial infarction (Chronic) Chronic kidney disease, stage III (moderate) (Chronic) HTN (hypertension) (Chronic) Heart disease (Chronic) Diabetes (Chronic) Benign hypertension (Chronic) Chronic kidney disease, stage III (moderate) (Chronic) Type 2 diabetes mellitus (Chronic) Gastroesophageal reflux disease (Chronic) Obesity (Chronic) History of CHF (congestive heart failure) (Chronic) Obstructive sleep apnea syndrome (Chronic) Chronic ulcer of right leg with necrosis of muscle (Chronic) Type 2 diabetes mellitus with diabetic polyneuropathy (Chronic) Other specified peripheral vascular diseases (Chronic) Localized edema (Chronic) Delayed wound healing (Chronic) Hospital Course and Treatment Imaging Results: 01/15/19 11:23 Diet: Carbohydrate Controlled Is pt able to select menu?: Yes Diet Comments: 2000 calorie, low Na Labs (Last 48 Hours) 01/17/19 01/17/19 01/17/19 10:40 16:23 16:53 POC Glucose 115 H 61 L 66 L 01/17/19 01/17/19 01/18/19 17:13 20:30 06:14 POC Glucose 114 H 182 H 177 H 01/18/19 10:57 POC Glucose 167 H Consultations 01/15/19 02:02 Consult: Onc/Wound/bowling ball patcher Routine Comment: Reason for Consult:: R heel wound vac Operations: None, - - 01/13/19: Muscle and subcutaneous excisional debridement right heel with versa jet. Bone biopsy right calcaneus 01/12/19: 1. Ultrasound- guided access retrograde left common femoral artery. 2. Right lower extremity angiogram with catheter placed into the past third order anterior tibial artery on the right. 3. Balloon angioplasty of the anterior tibial artery into the popliteal artery with a 3 x 3.5 x 220 balloon. Also ballooned the proximal anterior tibia with a 3 x 100 balloon. 4. Closure with Star close Procedures: None Summary of Care Provided: The patient is a 58 year old Male with below past medical history hospitalized for right heel osteomyelitis, underwent right lower extremity angioplasty for peripheral artery occlusive disease 01/12/[address] Hurtado, complicated by poor controlled Type 2 Diabetes, admitted to TCU with debility, here for rehabilitation, strengthening, intravenous antibiotics, wound care, prior to discharge home alone. 01/18/2019 Resident refused all treatment, he told me he is done, would like to go home to . I tried to talk him out of it, but I failed. Discharge home with [facility]. Patient Problems: Active and Suspected Problems (Last Reviewed 01/08/19 @ 18:04 by Ryan Hurtado MD) Debility (Acute) Ulcer of right foot due to type 2 diabetes mellitus (Acute) Acute osteomyelitis of right calcaneus (Acute) - Physical Exam Vital Signs Temp Pulse Resp BP Pulse Ox 96.9 F L 69 18 155/78 H 97 01/17/19 15:17 01/17/19 15:17 01/17/19 15:17 01/17/19 15:17 01/17/19 15:17 Oxygen Delivery Method Room Air Weight: 100 kg Body Mass Index (BMI) 31.8 Intake and Output for Last 24 Hours 01/17/19 01/18/19 01/19/19 23:59 23:59 23:59 Intake Total 1219.17 / 1219.17 887.85 / 887.85 Output Total 400 / 400 1000 / 1000 Balance 819.17 / 819.17 -112.15 / -112.15 POC Glucose 01/18/19 10:57 POC Glucose 167 H Discharge Diet: No Restrictions Discharge Activity: Return to Normal Activity, May Shower, Use Walker Weight Bearing Status: Weight bearing as tolerated Call your doctor if you observe: Fever of 101 or Higher, Inability to urinate, Inability to have a bowel movement, Shortness of breath, Chest pain, Uncontrolled pain Primary Care Physician: Reynaldo Lou DO [Primary Care Provider] - Please follow up with your Primary Care Physician in: As needed. Please Follow Up With: Beualh Schultz DPM When: As needed. Please Follow Up With: Ryan Hurtado MD When: As needed. Disposition: Home with Hospice Minutes spent on discharge:: 30 Patient Condition:: Poor Medical Necessity - Tobacco Use Smoking Status: Former smoker Tobacco Use: Non-smoker Meaningful Use Info Meaningful Use Diagnoses (Choose all that apply): None applicable
--- NOTE | 2019-01-19 09:36 | NURSING ---
PT SISTER HERNAN BARRAZA CALLED IN FOR INFO ON PT. ASKED PT IF I HAD PERMISSION TO GIVE INFO TO SISTER. PT STATED YES,TELL HER WHAT EVER SHE WANTS TO KNOW. TALKED TO SISTER AND SISTER MADE THE STATEMENT THAT HER BROTHER HAS GUNS IN THE HOUSE AND WAS AFRAID WHAT HER BROTHER MIGHT DUE. REPORTED TO [employer] MACHINE OPERATOR AND JYOTI TRINIDAD.
--- NOTE | 2019-01-19 10:07 | PCM.PN.HH ---
Home Health Note - Plan Overview of reason of hospitalization: The patient is a 58 year old Male with below past medical history hospitalized for right heel osteomyelitis, underwent right lower extremity angioplasty for peripheral artery occlusive disease 01/12/[address] Hurtado, complicated by poor controlled Type 2 Diabetes, admitted to TCU with debility, here for rehabilitation, strengthening, intravenous antibiotics, wound care, prior to discharge home alone. 01/18/2019 Resident refused all treatment, he told me he is done, would like to go home to . I tried to talk him out of it, but I failed. Discharge home with [facility]. Problems: Patient was seen for (Last Reviewed 01/08/19 @ 18:04 by Ryan Hurtado MD) Debility (Acute) Ulcer of right foot due to type 2 diabetes mellitus (Acute) Acute osteomyelitis of right calcaneus (Acute) Peripheral arterial occlusive disease (Chronic) Chronic kidney disease (Chronic) Diabetic polyneuropathy (Chronic) Sleep apnea (Chronic) Complete List of Medical Problems (Last Reviewed 01/08/19 @ 18:04 by Ryan Hurtado MD) Ulcer of right foot with necrosis of muscle (Acute) Debility (Acute) Ulcer of right foot due to type 2 diabetes mellitus (Acute) Acute osteomyelitis of right calcaneus (Acute) Peripheral arterial occlusive disease (Chronic) Chronic kidney disease (Chronic) Diabetic polyneuropathy (Chronic) Sleep apnea (Chronic) Osteomyelitis (Acute) Gangrene (Acute) Type 2 diabetes mellitus with diabetic polyneuropathy (Chronic) Ulcer of right foot with fat layer exposed (Acute) Ulcer of right foot with fat layer exposed (Chronic) PAD (peripheral artery disease) (Chronic) Amputation of left lower extremity below knee (Chronic) History of myocardial infarction (Chronic) Chronic kidney disease, stage III (moderate) (Chronic) HTN (hypertension) (Chronic) Heart disease (Chronic) Diabetes (Chronic) Benign hypertension (Chronic) Chronic kidney disease, stage III (moderate) (Chronic) Type 2 diabetes mellitus (Chronic) Gastroesophageal reflux disease (Chronic) Obesity (Chronic) History of CHF (congestive heart failure) (Chronic) Obstructive sleep apnea syndrome (Chronic) Chronic ulcer of right leg with necrosis of muscle (Chronic) Type 2 diabetes mellitus with diabetic polyneuropathy (Chronic) Other specified peripheral vascular diseases (Chronic) Localized edema (Chronic) Delayed wound healing (Chronic) Cellulitis of right leg (Acute) - Requirements and Reasons Disciplines Needed/Ordered: Fpc Reason for Disciplines: Disease Specific Monitoring/education, Wound Care Related To: Change in Medical Treatment Plan, Limited/Poor Endurance, Physical Impairments, Unsteady Gait/Balance, Intractable Pain Patient is unable to leave the home: Without Aid of Supportive Devices (crutches, cane, wheelchair, walker), Without the assistance of another person
[2019-01-19 10:15] VITALS: PULSE 87; RESP 18; O2SAT 99
--- NOTE | 2019-01-19 11:19 | PCA ---
patient refused me to check his blood sugar
--- NOTE | 2019-01-19 11:49 | NURSING ---
PT REFUSED TO LET THIS NURSE LOOK AT RIGHT FOOT.
[2019-01-19 14:55] VITALS: BP 198/105; PULSE 96; RESP 18; TEMP 36.8; O2SAT 100
--- NOTE | 2019-01-26 12:59 | MDS.RN ---
MDS 5 day/DC assessment completed, waiting to finalize for [facility] Information Systems instructions. Information for the mds was obtained from review of the clinical record, interview of resident, staff, and direct observation of resident's care.
== END 2019-01-19 15:00 | disposition hospice, home (50) | DRG 638 ==
PROVIDERS: Admitting Provider Family Medicine Geriatric Medicine; Family Provider Family Medicine; PCP Family Medicine; Referring Provider Family Medicine Geriatric Medicine; Visit Provider Family Medicine Geriatric Medicine
DX: E11.621 Type 2 diabetes mellitus with foot ulcer (principal); I13.0 Hypertensive heart and chronic kidney disease with heart failure and stage 1 through stage 4 chronic kidney disease, or unspecified chronic kidney disease; M86.171 Other acute osteomyelitis, right ankle and foot; E11.52 Type 2 diabetes mellitus with diabetic peripheral angiopathy with gangrene; K21.9 Gastro-esophageal reflux disease without esophagitis; E11.42 Type 2 diabetes mellitus with diabetic polyneuropathy; I50.9 Heart failure, unspecified; N18.3 Chronic kidney disease, stage 3 (moderate); E11.69 Type 2 diabetes mellitus with other specified complication; L97.512 Non-pressure chronic ulcer of other part of right foot with fat layer exposed; I25.2 Old myocardial infarction; G47.33 Obstructive sleep apnea (adult) (pediatric); F32.9 Major depressive disorder, single episode, unspecified; E11.65 Type 2 diabetes mellitus with hyperglycemia; E78.5 Hyperlipidemia, unspecified; N40.0 Benign prostatic hyperplasia without lower urinary tract symptoms; I25.10 Atherosclerotic heart disease of native coronary artery without angina pectoris; Z89.512 Acquired absence of left leg below knee; Z87.891 Personal history of nicotine dependence; E66.9 Obesity, unspecified; Z68.32 Body mass index [BMI] 32.0-32.9, adult; Z71.3 Dietary counseling and surveillance
CPT/HCPCS: 36415; 36569; 80048; 80202; 82962; 85025; 85652; 97110; 97162; 97166; 97530; 97535; 97802; J7050; A4216; J0696

== ENCOUNTER 2019-01-26 12:26 | Outpatient (RCR) | payer MEDICARE, SELFPAY ==
[2019-01-11 01:14] VITALS: BP 135/77; PULSE 71; RESP 18; TEMP 36.4; BMI 34.7
[2019-01-14 19:46] VITALS: BMI 31.8
== END 2019-02-10 23:59 ==
LOC: WC 12:26
PROVIDERS: Family Provider Family Medicine; PCP Family Medicine; Referring Provider Podiatrist; Visit Provider Podiatrist
DX: Z09 Encounter for follow-up examination after completed treatment for conditions other than malignant neoplasm (principal)